=== PATIENT | female | born 1965 | race Caucasian/White ===

== ENCOUNTER 2023-08-08 18:14 | Emergency (ER) | payer BC, SELFPAY ==
[2023-08-08 18:17] VITALS: BP 148/111
--- NOTE | 2023-08-08 18:32 | ED.GENMED ---
History of Present Illness
<Jimena Flores [employer] - Last Filed: 08/08/23 21:10>
General
Chief Complaint: Cardiac Symptoms
Source: patient
Exam Limitations: none
Time Seen by Provider: 08/08/23 18:30
Nursing documentation reviewed up to this point in time: agreed with
Travel History
Have you had any contact with someone who has COVID-19?: No
Do you have any symptoms of coronavirus? Fever > 100 degrees, chills, cough, shortness of breath, sore throat, loss of taste or smell, muscle aches, or headache?: No
History of Present Illness
History of Present Illness:
57-year-old female smoker with history of HTN, HLD, alcohol abuse, history of suicide attempts presents she has had 2 weeks of intermittent nonradiating mid chest 'fluttering,' also has had cramps in both her calves and her feet for the past week.
Has had intermittent nausea and vomiting for the past 2 years, states even looking at food makes her nauseous. No significant recent weight loss
She also has rosacea that is flaring, was diagnosed by her PCP years ago and at one time was on doxycycline, she moved away 2 years ago and moved back into this area 2 weeks ago, went to urgent care due to her rosacea and they gave her a 'few'
doxycycline pills and she is requesting more until she can get into see a manager mechanical
Denies SOB, fever or chills, denies diarrhea or constipation, denies nausea at this time
Past History
<Jimena Flores, [employer] - Last Filed: 08/08/23 21:10>
Past History
ED Past Medical History: HTN and Psychiatric (Depression)
ED Past Surgical History: None
Social History
Tobacco: Smoker
Alcohol: Daily
Personal:
Living: with family
Employment: Employed
Family History
Family History: Negative Early CAD or CAD
Review of Systems
<Jimena Flores, [employer] - Last Filed: 08/08/23 21:10>
Review of Systems
Allergies reviewed?: Yes
All Other Systems: ROS reviewed and negative except as documented in HPI and ROS
Constitutional: Denies fever or chills
Respiratory: Denies cough or trouble breathing
Cardiac: Reports palpitations (Fluttering feeling intermittently mid chest)
ABD/GI: Denies abdominal pain, nausea, vomiting or diarrhea
: Denies dysuria, frequency, difficulty voiding or urgency
Musculoskeletal: Reports other (Pain in calves and feet.); Denies neck pain or back pain
Skin: Reports other
Neurological: Reports no symptoms
Phy Exam
<Jimena Flores, [employer] - Last Filed: 08/08/23 21:10>
Physical Exam
Physical Exam:
GENERAL: No acute distress. A&Ox3.
CONSTITUTIONAL: Afebrile.
EYES: clear, conjunctivae normal
ENMT: moist mucus membranes, Pharynx nl
RESPIRATORY: Regular respirations, nonlabored, lungs clear.
CARDIOVASCULAR: Regular rate and rhythm, tachycardic no murmurs, no rubs.
GI: Soft, nontender, normal BS
MUSCULOSKELETAL: Moves with ease. No edema. No calf tenderness to palpation. Well perfused.
SKIN: Warm, dry, pink, few papules on the lower face, no redness or swelling of face, no butterfly rash.
PSYCH: Normal mood and affect. Well kept, interactive and appropriate
NEUROLOGIC: Awake, alert and oriented. Strength equal throughout, sensation to touch intact, equal,both LEs. No focal neurological deficits
Course
<Jimena Flores, [employer] - Last Filed: 08/08/23 21:10>
Orders/Labs/Results
Orders:
Orders
08/08/23 18:20
ECG [Electrocardiogram (*1)] Urgent
Reason for Study: Palpitations
EKG- Treatment ONCE
08/08/23 18:47
CR Chest - 2 Views Urgent
Comment:
Reason For Exam: chest pain
08/08/23 18:48
US Periph Venous LOWER Ext Eugenio Urgent
Comment:
Reason For Exam: pain both calves and feet
08/08/23 19:01
Complete Blood Count/With Diff Urgent
Comprehensive Metabolic Panel Urgent
NT-proBNP Urgent
Troponin I Urgent
08/08/23 19:39
0.9% Sodium Chloride 1000 ml [Nss] 1,000 ml IV BOLUS
08/08/23 20:23
D-Dimer Urgent
08/08/23 21:30
CT Chest Pe Study Urgent
Comment:
Reason For Exam: hr up, ddimer up
Abnormal Lab Results
08/08/23 08/08/23
19:01 20:23
RBC 3.55 L 10^6/uL
(4.20-5.40)
Hct 35.7 L %
(37.0-47.0)
MCV 100.6 H fL
(81.0-99.0)
MCH 35.8 H pg
(27.0-31.0)
Plt Count 92 L 10^3/uL
(130-400)
MPV 10.9 H fL
(7.4-10.4)
Absolute Monos (auto) 0.8 H 10^3/uL
(0.1-0.6)
Lymphocytes % 17.9 L %
(20.5-51.1)
Monocytes % 9.5 H %
(1.7-9.3)
D-Dimer 1.92 H ug/mlFEU
(0.00-0.50)
Sodium 128 L mmol/L
(135-145)
Chloride 96 L mmol/L
(98-107)
Carbon Dioxide 21 L mmol/L
(22-30)
Creatinine 0.4 L mg/dL
(0.6-1.0)
Glucose 109 H mg/dl
(70-99)
Total Bilirubin 2.6 H mg/dl
(0.2-1.3)
AST 134 H U/L
(14-36)
ALT 39 H U/L
(0-35)
Alkaline Phosphatase 172 H U/L
(38-126)
08/08/23 19:01
08/08/23 19:01
Vital Signs
Initial and Last Documented VS:
Initial Vital Signs
Temp Pulse Resp BP Pulse Ox
98.0 F 130 20 148/111 99
08/08/23 18:17 08/08/23 18:17 08/08/23 18:17 08/08/23 18:17 08/08/23 18:17
Last Documented Vital Signs
Temp Pulse Resp BP Pulse Ox
98.0 F 92 17 149/98 99
08/08/23 18:17 08/08/23 20:50 08/08/23 20:50 08/08/23 20:50 08/08/23 20:50
Perfumer consulted with Physician
Perfumer consulted with physician?: Yes
Name of Physician Consulted: Andrew
<Sharad Morales, DO - Last Filed: 08/08/23 21:56>
Orders/Labs/Results
Orders:
Orders
08/08/23 18:20
ECG [Electrocardiogram (*1)] Urgent
Reason for Study: Palpitations
EKG- Treatment ONCE
08/08/23 18:47
CR Chest - 2 Views Urgent
Comment:
Reason For Exam: chest pain
08/08/23 18:48
US Periph Venous LOWER Ext Eugenio Urgent
Comment:
Reason For Exam: pain both calves and feet
08/08/23 19:01
Complete Blood Count/With Diff Urgent
Comprehensive Metabolic Panel Urgent
NT-proBNP Urgent
Troponin I Urgent
08/08/23 19:39
0.9% Sodium Chloride 1000 ml [Nss] 1,000 ml IV BOLUS
08/08/23 20:23
D-Dimer Urgent
08/08/23 21:30
CT Chest Pe Study Urgent
Comment:
Reason For Exam: hr up, ddimer up
Abnormal Lab Results
08/08/23 08/08/23
19:01 20:23
RBC 3.55 L 10^6/uL
(4.20-5.40)
Hct 35.7 L %
(37.0-47.0)
MCV 100.6 H fL
(81.0-99.0)
MCH 35.8 H pg
(27.0-31.0)
Plt Count 92 L 10^3/uL
(130-400)
MPV 10.9 H fL
(7.4-10.4)
Absolute Monos (auto) 0.8 H 10^3/uL
(0.1-0.6)
Lymphocytes % 17.9 L %
(20.5-51.1)
Monocytes % 9.5 H %
(1.7-9.3)
D-Dimer 1.92 H ug/mlFEU
(0.00-0.50)
Sodium 128 L mmol/L
(135-145)
Chloride 96 L mmol/L
(98-107)
Carbon Dioxide 21 L mmol/L
(22-30)
Creatinine 0.4 L mg/dL
(0.6-1.0)
Glucose 109 H mg/dl
(70-99)
Total Bilirubin 2.6 H mg/dl
(0.2-1.3)
AST 134 H U/L
(14-36)
ALT 39 H U/L
(0-35)
Alkaline Phosphatase 172 H U/L
(38-126)
08/08/23 19:01
08/08/23 19:01
Vital Signs
Initial and Last Documented VS:
Initial Vital Signs
Temp Pulse Resp BP Pulse Ox
98.0 F 130 20 148/111 99
08/08/23 18:17 08/08/23 18:17 08/08/23 18:17 08/08/23 18:17 08/08/23 18:17
Last Documented Vital Signs
Temp Pulse Resp BP Pulse Ox
98.0 F 92 17 149/98 99
08/08/23 18:17 08/08/23 20:50 08/08/23 20:50 08/08/23 20:50 08/08/23 20:50
<Jimena Flores [employer] - Last Filed: 08/08/23 21:10>
MDM/Problems Addressed
Differential Diagnosis Includes:
DVT, PE, dehydration, dysrhythmia
Rosacea, acne, lupus, seborrheic dermatitis
MDM/Problems Addressed:
57-year-old female smoker with history of HTN, HLD, alcohol abuse, history of suicide attempts presents she has had 2 weeks of intermittent nonradiating mid chest 'fluttering,' also has had cramps in both her calves and her feet for the past week.
Has had intermittent nausea and vomiting for the past 2 years, states even looking at food makes her nauseous. No significant recent weight loss
She also has rosacea that is flaring, was diagnosed by her PCP years ago and at one time was on doxycycline, she moved away 2 years ago and moved back into this area 2 weeks ago, went to urgent care due to her rosacea and they gave her a 'few'
doxycycline pills and she is requesting more until she can get into see a manager mechanical
Denies SOB, fever or chills, denies diarrhea or constipation, denies nausea at this time
Afebrile, NAD
EKG: Sinus tachycardia
No butterfly rash of lupus.
7:37 PM
CBC: Mild thrombocytopenia with platelets at 92 which is new for her
CMP: Hyponatremia with a sodium of 128 which is new, elevation of liver enzymes bilirubin 2.6 (hx alcohol misuse) Denies alcohol use 'for a while' days. drinks white wine
Chest x-ray: Radiology report read: NAD
Troponin normal
proBNP 586 WNL
8:12 PM
Ultrasound radiology report read: No DVT
Patient is referred to GI for her chronic intermittent nausea and vomiting. Prescription for Omeprazole sent to her pharmacy
Patient is referred to dermatology for her rosacea. Rx for Doxycycline sent to her pharmacy
Patient is referred back to her family practitioner in 7 to 10 days to have her blood work, specifically sodium, platelets, bilirubin and liver function rechecked, recheck HR and BP
8:51 PM
Patient heart rate 90 on the monitor, she is laying quietly in bed watching TV. Blood pressure rechecked 148/98
D dimer pending, if neg, discharge
Dr. Morales will get result and OK pt to be discharged
Chronic conditions affecting care: HTN
<Jimena Flores [employer] - Last Filed: 08/08/23 21:10>
*EKG
EKG Intrepretation Date: 08/08/23
Interpretation: abnormal
Comparison EKG: no changes
Rate: tachycardiac
Rhythm: sinus
[place]: normal axis
Interval: normal interval
QRS Pattern: normal QRS
Ischemia: no ischemia
<Sharad Morales DO - Last Filed: 08/08/23 21:56>
*Critical Care Note
Total Time (30-74mins, 75-104mins- exclusive of procedures): Not Applicable
ED Attending Note
<Jimena V. Day, [employer] - Last Filed: 08/08/23 21:10>
-
Portions of this chart may have been created with voice recognition software.� Occasional wrong word or��sound alike� substitutions may have occurred due to the inherent limitations of voice recognition software.
<Sharad Morales DO - Last Filed: 08/08/23 21:56>
ED Attending Note
Patient seen and examined by attending physician: Yes
I performed the substantive portion of visit, reviewed & personally made and approve the management plan that is documented in note by myself or ITZ.: Yes
ED Attending Note:
Seen with [facility] [employer] examined independently tachycardia palpitations decreased p.o. intake, heart rates as high as 130s, seems to be improved after IV fluids, negative lower extremity Doppler negative chest x-ray positive D-dimer we will proceed with CTA of
the chest to rule out PE
Discharge Plan
Departure
Patient Disposition: Home (Routine Discharge)
Date of Disposition: 08/08/23
Time of Disposition: 21:55
Patient with high blood pressure during this ER visit?: No
Condition: Good
Discharge Problem:
Nonspecific elevation of levels of transaminase and lactic acid dehydrogenase [ldh], Atypical chest pain, Rosacea, Bilateral leg and foot pain
Instructions: Rosacea, Chest Pain That Is Not Caused by the Heart (DC), Acid Reflux and GERD in Adults (DC)
Prescriptions:
New
doxycycline hyclate 100 mg capsule
100 mg PO BID Qty: 60 0RF
omeprazole 40 mg capsule,delayed release(DR/EC)
40 mg PO DAILY Qty: 30 0RF
No Action
metoprolol succinate 50 MG tablet extended release 24 hr
50 mg PO DAILY
escitalopram oxalate 10 MG tablet
10 mg PO DAILY
thiamine HCl (vitamin B1) 100 MG tablet
100 mg PO BID 0RF
amlodipine 5 MG tablet
5 mg PO DAILY 0RF
folic acid 1 MG tablet
1 mg PO DAILY 0RF
Referrals:
Heron Gonzalez MD [Active] - Next open appointment
NONE,* [Family Provider] -
Silvia Nair MD [Consulting Staff] - Next open appointment
Nichol Stokes CRNP [Specified Professional Personl] - Call in 1-3 days for appt
Activity Restrictions/Additional Instructions:
As we discussed, stop using the steroid ointment on your face
I sent a prescription to your pharmacy for Doxycycline. Call the Wire Stripping Machine Operator tomorrow for next available appointment
Call [facility] [employer] Divya office tomorrow and make appointment for 7-10 days for recheck of blood work, BP and heart rate.
I sent a prescription to your for Omeprazole over the counter and take 20 mg daily to see if it helps your GI symptoms.
Call the GI doctor's office and make next available appointment for your chronic nausea and vomiting
Your Ultrasound shows no blood clots.
I am not sure of the cause of your leg and foot pains. Please discuss this with your doctor.
Start exercising by taking daily walks to get the blood flowing to your legs, this may help the pain in the legs.
Interventions
Interventions:
*Risk Screen - Suicide Last Done: 08/08/23 19:02
*General Assessment Last Done: 08/08/23 19:02
*Neglect/Abuse Screening Last Done: 08/08/23 19:02
ED- Fall Risk Assessment Last Done: 08/08/23 19:09
*ED COVID-19 Vaccine History Last Done: 08/08/23 19:02
ED- Cardiac Assessment Last Done: 08/08/23 19:09
ED- Pulmonary Assessment Last Done: 08/08/23 19:09
Discharge Date and Time
Print Language: GREENLANDIC
[2023-08-08 18:56] VITALS: BP 143/107
[2023-08-08 19:03] VITALS: BMI 29.5
[2023-08-08 19:10] LABS: % Basophils 0.8 % (0-2); % Eosinophils 2.7 % (0-6); % Immature Granulocytes 0.4 % (0-0.5); % Lymphocytes 17.9 % (20.5-51.1); % Monocytes 9.5 % (1.7-9.3); % Neutrophils 68.7 % (42.2-75.2); Absolute Basophils 0.1 10^3/uL (0-0.2); Absolute Eosinophils 0.2 10^3/uL (0-0.7); Absolute Lymphocytes 1.5 10^3/uL (1.2-3.4); Absolute Monocytes 0.8 10^3/uL (0.1-0.6); Absolute Neutrophils 5.8 10^3/uL (1.4-6.5); Hematocrit 35.7 % (37.0-47.0); Hemoglobin 12.7 g/dL (12.0-16.0); Mean Corp Hgb Conc. 35.6 g/dL (33.0-37.0); Mean Corpuscular Hgb 35.8 pg (27.0-31.0); Mean Corpuscular Volume 100.6 fL (81.0-99.0); Nucleated Red Blood Cells % 0 %; Red Blood Cell Count 3.55 10^6/uL (4.20-5.40); Red Cell Dist. Width 11.9 % (11.5-14.5); White Blood Cell Count 8.4 10^3/uL (4.8-10.8)
[2023-08-08 19:23] LABS: Mean Platelet Volume 10.9 fL (7.4-10.4); Platelet Count 92 10^3/uL (130-400)
[2023-08-08 19:27] LABS: ALT (SGPT) 39 U/L (0-35); AST (SGOT) 134 U/L (14-36); Albumin 3.6 g/dl (3.5-5.0); Alkaline Phosphatase 172 U/L (38-126); Blood Urea Nitrogen 8 mg/dl (7-17); Calcium 8.6 mg/dl (8.4-10.2); Carbon Dioxide 21 mmol/L (22-30); Chloride 96 mmol/L (98-107); Estimated Creatinine Clearance 103 ml/min; Glucose 109 mg/dl (70-99); Potassium 3.7 mmol/L (3.5-5.1); Sodium 128 mmol/L (135-145); Total Bilirubin 2.6 mg/dl (0.2-1.3); Total Protein 7.4 g/dl (6.3-8.2); eGFR > 60.00
[2023-08-08 19:36] LABS: NT-proBNP 586 pg/ml; Troponin I < 0.012 ng/ml
[2023-08-08 20:19] VITALS: BP 146/101
[2023-08-08] MEDS: NSS 1000 IV (20:22)
[2023-08-08 20:50] VITALS: BP 149/98
[2023-08-08 21:00] VITALS: BP 151/102
[2023-08-08 21:25] LABS: D-Dimer 1.92 ug/mlFEU (0.00-0.50)
[2023-08-08 22:00] VITALS: BP 149/101
== END 2023-08-08 22:52 | disposition home or self-care (01) ==
LOC: EMR 18:14
PROVIDERS: Registered Nurse; EMERGENCY PHYSICIAN Emergency Medicine
DX: R74.02 Elevation of levels of lactic acid dehydrogenase [LDH] (principal); R74.01 Elevation of levels of liver transaminase levels; R07.89 Other chest pain; L71.9 Rosacea, unspecified; M79.605 Pain in left leg; M79.604 Pain in right leg; M79.672 Pain in left foot; M79.671 Pain in right foot; I10 Essential (primary) hypertension; E78.5 Hyperlipidemia, unspecified; F17.200 Nicotine dependence, unspecified, uncomplicated
CPT/HCPCS: 99285; 96360; 71046; 71275; 80053; 83880; 84484; 85025; 85379; 93005; 93970; Q9967

== ENCOUNTER → 2024-02-01 12:48 | Outpatient (REF) | payer BC, SELFPAY | LOC: HWRAD 12:48 | PROVIDERS: ATTENDING PHYSICIAN Nurse Practitioner Adult Health | DX: R93.5 Abnormal findings on diagnostic imaging of other abdominal regions, including retroperitoneum (principal); I82.890 Acute embolism and thrombosis of other specified veins; R11.0 Nausea | CPT/HCPCS: 74177; Q9967 ==

== ENCOUNTER 2024-02-06 17:41 | Inpatient (IN) | payer BC, SELFPAY ==
[2024-02-06] VITALS (11 sets, daily range): BP systolic 91–131; BP diastolic 60–90; BMI 31.2; BMI 30.3
[2024-02-06] MEDS: NSS 1000 IV ×2 (10:20→21:16)
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
[2024-02-06 11:07] LABS: % Basophils 0.4 % (0-2); % Immature Granulocytes 0.6 % (0-0.5); % Lymphocytes 11.1 % (20.5-51.1); % Monocytes 12.1 % (1.7-9.3); % Neutrophils 74.8 % (42.2-75.2); Absolute Eosinophils 0.1 10^3/uL (0-0.7); Absolute Immature Granulocytes 0.1 10^3/uL (0-0.05); Absolute Lymphocytes 1.1 10^3/uL (1.2-3.4); Absolute Monocytes 1.2 10^3/uL (0.1-0.6); Absolute Neutrophils 7.1 10^3/uL (1.4-6.5); Hematocrit 28.2 % (37.0-47.0); Mean Corp Hgb Conc. 35.5 g/dL (33.0-37.0); Mean Corpuscular Hgb 35.5 pg (27.0-31.0); Mean Platelet Volume 12.6 fL (7.4-10.4); Nucleated Red Blood Cells % 0.2 %; Platelet Count 77 10^3/uL (130-400); Red Blood Cell Count 2.82 10^6/uL (4.20-5.40); Red Cell Dist. Width 13.9 % (11.5-14.5); White Blood Cell Count 9.5 10^3/uL (4.8-10.8)
[2024-02-06 11:10] LABS: ALT (SGPT) 138 U/L (0-35); AST (SGOT) 505 U/L (14-36); Acetaminophen < 10 ug/ml (10-30); Albumin 3.6 g/dl (3.5-5.0); Alcohol None Detected; Alkaline Phosphatase 163 U/L (38-126); Blood Urea Nitrogen 23 mg/dl (7-17); Calcium 8.9 mg/dl (8.4-10.2); Carbon Dioxide 22 mmol/L (22-30); Chloride 91 mmol/L (98-107); Glucose 106 mg/dl (70-99); Salicylate < 1.0 mg/dl (2.0-20.0); Sodium 134 mmol/L (135-145); Total Bilirubin 6.1 mg/dl (0.2-1.3); Total Protein 6.8 g/dl (6.3-8.2); eGFR 28.25
[2024-02-06 13:55] LABS: Urine Albumin Negative (Neg - Trace); Urine Bilirubin 1+ (Negative); Urine Character Cloudy (Clear); Urine Color Amber; Urine Glucose Negative (Negative); Urine Ketone Trace (Negative); Urine Leukocyte 2+ (Negative); Urine Nitrite Negative (Negative); Urine Occult Blood Trace (Negative); Urine Urobilinogen 3+ (Neg - 1+)
[2024-02-06 14:10] LABS: Amphetamines Positive (Negative); Marijuana Positive (Negative)
[2024-02-06 14:11] LABS: Barbiturates Negative (Negative); Benzodiazepines Negative (Negative); Buprenorphine Negative (Negative); Cocaine Negative (Negative); Methadone Negative (Negative); Methamphetamines Negative (Negative); Opiates Negative (Negative); Phencyclidine Negative (Negative); Tricyclic Antidepressants Negative (Negative)
[2024-02-06 14:14] LABS: Urine Amorphous Seen; Urine Bacteria Many (Negative); Urine Red Blood Cell 0-2 /HPF (0-2); Urine Squamous Cell >30 /LPF (Few); Urine White Cell 40-50 /HPF (0-5)
[2024-02-06 14:25] LABS: Fentanyl, Urine Negative (Negative)
[2024-02-06 15:19] LABS: Ammonia < 9 umol/L (9-30)
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
[2024-02-06 18:30] LABS: TSH 6.26 uIU/ml (0.47-4.68)
[2024-02-06 19:05] LABS: Folate 6.7 ng/ml (2.76-20); Vitamin B12 > 1000 pg/ml (239-931)
[2024-02-06] MEDS: THIAMINE INJECTION 255 MG IV ×2 (19:14→23:55)
[2024-02-06 21:28] LABS: INR 1.71; PT 19.9 Sec (11.4-14.6)
[2024-02-06 21:29] LABS: APTT 30.8 Sec (23.4-35.0)
[2024-02-06 21:42] LABS: B-Hydroxybutyrate 1.25 mmol/L (0.02-0.27); GGTP 269 U/L (12-43)
--- NOTE | 2024-02-06 22:58 | PTCARENOTE ---
Pt. arrived to unit from ED via stretcher. Patient able to safely ambulate into room 331 on . Patient AAOx3, forgetful, confused to some details. No c/o pain. Tele placed per orders. Oriented to unit. Call hinson within reach. Plan of care
ongoing.
[2024-02-07 03:15] VITALS: BP 123/86
--- NOTE | 2024-02-07 03:17 | PTCARENOTE ---
Patient with different hallucinations throughout shift. Patient found sitting on side of the bed at around 2300. This RN asked patient if she needed anything to which patient replied 'be quiet, the man behind the curtain is going to propose to her
soon,' pointing to the recliner chair. Patient able to answer all orientation questions appropriately. Pt. then c/o bugs crawling up the straws and into her drink. This RN opened cup where no bugs were observed. Tried to reorient to reality. New
drinks provided. Patient later stated that there was loyola all over her linens. While attempting to reorient patient, patient stated 'you're really starting to piss me off.' Again, no loyola visualized. New linens provided to patient. Encouraged
patient to try to rest. MSAS remains a 2. Plan of care ongoing.
--- NOTE | 2024-02-07 05:19 | PTCARENOTE ---
Pt. yelling for 'Sonam' to 'stop calling her.' This nurse entered the room and attempted to orient to reality. Patient stated that Sonam was 'behind the door' and is 'playing tricks on us.' Asked patient to not yell any further. Patient replied
'thanks Sonam, you got me in trouble.' Patient continues to believe that Sonam is 'writing on the morris' and hiding behind the door. Unable to reorient. Patient able to tell this RN that she is at the hospital. Plan of care ongoing. Call hinson
within reach.
[2024-02-07 06:32] LABS: ALT (SGPT) 183 U/L (0-35); AST (SGOT) 618 U/L (14-36); Albumin 2.8 g/dl (3.5-5.0); Alkaline Phosphatase 125 U/L (38-126); Blood Urea Nitrogen 17 mg/dl (7-17); Calcium 7.8 mg/dl (8.4-10.2); Carbon Dioxide 23 mmol/L (22-30); Chloride 97 mmol/L (98-107); Estimated Creatinine Clearance 56 ml/min; Glucose 86 mg/dl (70-99); Potassium 3.4 mmol/L (3.5-5.1); Sodium 134 mmol/L (135-145); Total Bilirubin 4.9 mg/dl (0.2-1.3); Total Protein 5.8 g/dl (6.3-8.2); eGFR 57.88
[2024-02-07] MEDS: NSS 1000 IV (07:09)
[2024-02-07 07:40] VITALS: BP 127/85
--- NOTE | 2024-02-07 08:08 | CON.GI ---
Addendum entered and electronically signed by Bella Gupta DO 02/07/24 14:33:
Patient seen and examined independently of JEROMY. I agree with her note with my additions below
Patient is a 58-year-old female with history of alcohol use, psoriatic arthritis who presents emergency room with hallucinations. She had called due to concern for liver disease and questionable hepatic encephalopathy. In the emergency room
patient has a hepatocellular/mixed with elevated bilirubin of 4.9. Alkaline phosphatase 125. Imaging shows no ductal dilatation however a questionable proximal main portal vein thrombosis was found. Labs concerning for cirrhosis with
thrombocytopenia, elevated INR of 1.7.
On physical exam she has some stigmata of liver disease including palmar erythema and a few angiectasias on her chest
# Hallucinations -based on patient's behavior, this is not classic hepatic encephalopathy. She is coherent not lethargic and is having hallucinations alone
-Her ammonia level is normal-she has no asterixis on exam
-She does have a UTI and is currently being treated
-If there is a component of hepatic encephalopathy this could be driven by both infection with UTI and also a new portal vein thrombosis
-- Ensure potassium is within normal range as this can also drive hepatic encephalopathy
-- Avoid constipation
# Alcoholic liver disease -alcohol cessation
-- Likely cirrhosis and will need outpatient follow-up
# Mixed hepatocellular/hyperbilirubinemia -no ductal dilatation on imaging, likely alcoholic hepatitis however despite her DF being greater than 32 in the setting of infection she is not a candidate for steroids
-- Trend LFTs
# Portal vein thrombosis -higher risk in the setting of cirrhosis causing stagnation of portal flow and increasing risk of portal clot
-- She has no significant ascites on imaging
-- Currently on Lovenox
-- Reviewed hematology note stating when her renal function improves she will need IV contrast
Original Note:
Consultation
-
Date/Time Consultation Requested: 02/06/24 @ 19:45
Date/Time Consultation Performed: 02/07/24 @ 08:45
Requesting Provider: Dr. Dahlia Solo
Performing Provider: JEROMY Francisco; Dr. Bella Gupta
Reason for Consultation: alcohol hepatitis, alcohol withdrawal, hepatic encephalopathy vs wernicke's
Medical History
Chief Complaint / HPI
Chief Complaint: altered mental status
History of Present Illness:
The patient is a 58-year-old female with a past medical history significant for hypertension, hyperlipidemia, psoriatic arthritis, alcohol use disorder, who presented to the emergency room with hallucinations and altered mentation. We are being
asked to evaluate for possible hepatic encephalopathy. Upon review of admitting records, the patient had reportedly been having hallucinations at home calling the police on multiple occasions for various reasons including attempted burglary's which
were not evident. She also had reported sleeping with cats in her home that were not present. She reportedly has had decreased oral intake over the past week per her family although she lives alone. She does have a history of alcohol use
disorder, and does drink excessive amounts of wine. I spoke to her son Logan on the phone who reports that she has been declining from a mental standpoint as of recently. He reports that she is unable to put things together and often is making
up stories. They are concerned that she has underlying dementia. He also reports that she has a history of alcohol abuse and had been in inpatient rehab in the past. He does not feel that she has been drinking as much recently but he is unsure as
she lives alone. She was initially brought in for mental status evaluation but then found to have increased LFTs and other findings as noted below. The patient is a limited historian and trying to leave the room during the interview, but reports
that she does continue with alcohol use about 2 times weekly which she has been doing for many years. She reports she will drink 4 glasses of wine in a sitting but has not drank in the last 2 weeks. She has no complaints other than eating less but
she has been doing intentionally. She denies any unintentional weight loss, loss of appetite, change of bowel habits, melena, hematochezia, hematemesis, nausea, vomiting, abdominal pain, fevers, chills, chest pain, or shortness of breath. She
denies any prior history of liver disease or cirrhosis. She reports that she does take Advil about 4 times weekly to help her sleep. She does not use Tylenol regularly. She does not recall her prior surgical history but does note she has rosacea,
GERD, and hypertension which she takes medications for. She otherwise is unable to offer much more history. She does answer orientation questions correctly. She reports she needs to leave the hospital to take her dad somewhere. She reports prior
colonoscopy about 3 to 4 years ago with no polyps. She denies any prior EGD. She denies any use of blood thinners. She denies any prior history of blood clots. Upon review of outpatient records, she did have an abdominal ultrasound in October at
[facility] which did show perisplenic varices with possible thrombus of the splenic vein along with fatty liver. At that time the main portal vein did appear patent although limited imaging.
Upon evaluation in the ER, routine labs showed a sodium 134, potassium 4.0, total bilirubin 6.1, AST 505, ALT 138, alk phos 163, ammonia less than 9, folate 6.7, vitamin B12 greater than 1000, albumin 3.6, TSH 6.26, creatinine 2.0, BUN 23, WBC 9.5,
hemoglobin 10.0, MCV 100, platelets 77,000. Urinalysis showing 40-50 WBCs, possible UTI with urine culture pending. Blood culture sent and are pending. Urine drug screen showing amphetamines and marijuana. CT imaging of the brain showed no acute
intracranial abnormalities with moderate atrophy. CT of the abdomen and pelvis showed severe hepatic fatty infiltration and elongated gallbladder. An ultrasound of the abdomen was obtained which showed a large amount of gallbladder sludge,
distention of the gallbladder, fatty liver, and a proximal main portal vein thrombosis, with findings consistent with likely portal hypertension. She was placed on a clear liquid diet with infection workup pending, and admitted for further
evaluation by GI.
Past Medical History
Past Medical History: GERD, HTN, Hypercholesterolemia and Other (Psoriatic arthritis, alcohol use disorder, chronic lower extremity edema)
Past Surgical History: Other (Patient could not report surgical history)
Social History
Tobacco: Non-Smoker
Alcohol: Chronic Alcoholic
Drug: Marijuana
Living: Alone
Family History
Family History: Reviewed & Not Pertinent
Allergies / Home Medications
Allergy/AdvReac Type Severity Reaction Status Date / Time
No Known Allergies Allergy Unverified 02/06/24 12:36
�Medication �Instructions �Recorded
metoprolol succinate 50 mg 100 mg PO DAILY 02/13/19
tablet,extended release 24 hr
omeprazole 40 mg capsule,delayed 40 mg PO DAILY #30 caps 08/08/23
release
doxycycline hyclate 100 mg capsule 100 mg PO BIDPRN PRN as needed 02/06/24
tizanidine 2 mg tablet 2 mg PO HS 02/06/24
Review of Systems
-
Unable to obtain full review of systems at this time due to: Other (altered mentation)
History Source: Patient and Family
Constitutional: Reports No Symptoms
EENT: Reports No Symptoms
Respiratory: Reports No Symptoms
Cardiac: Reports No Symptoms
Abdomen/GI: Reports No Symptoms
: Reports No Symptoms
Musculoskeletal: Reports No Symptoms
Skin: Reports No Symptoms
Neurological: Reports Other (hallucinations, delusions)
Vital Signs
Temp Pulse Resp BP Pulse Ox
98.4 F 93 16 127/85 97
02/07/24 07:40 02/07/24 07:40 02/07/24 07:40 02/07/24 07:40 02/07/24 07:40
Physical Exam
Exam
General: No Apparent Distress, Comfortable and Other (appears older than stated age)
HEENT: Normocephalic, Atraumatic and Other (+b/L scleral icterus)
Respiratory: Clear
Cardiac: S1/S2 and Regular Rhythm
Breast: Deferred by me
GI: Soft, Non Tender, Non Distended and Normal Bowel Sounds
Rectal: Deferred by Provider
Musculoskeletal: Edema (+1 LE edema bilaterally)
Skin: Warm and Dry
Neuro: Awake, Alert and Oriented (to self, place, and year)
Psych: Agitated and Other (pacing )
Results
WBC 9.5 10^3/uL (4.8-10.8) 02/06/24 10:24
Hgb 10.0 g/dL (12.0-16.0) L 02/06/24 10:24
Hct 28.2 % (37.0-47.0) L 02/06/24 10:24
MCV 100.0 fL (81.0-99.0) H 02/06/24 10:24
Plt Count 77 10^3/uL (130-400) L 02/06/24 10:24
Absolute Neuts (auto) 7.1 10^3/uL (1.4-6.5) H 02/06/24 10:24
PT 19.9 Sec (11.4-14.6) H 02/06/24 21:08
INR 1.71 02/06/24 21:08
APTT 30.8 Sec (23.4-35.0) 02/06/24 21:08
Sodium 134 mmol/L (135-145) L 02/07/24 05:40
Potassium 3.4 mmol/L (3.5-5.1) L 02/07/24 05:40
Chloride 97 mmol/L (98-107) L 02/07/24 05:40
Carbon Dioxide 23 mmol/L (22-30) 02/07/24 05:40
BUN 17 mg/dl (7-17) 02/07/24 05:40
Creatinine 1.1 mg/dL (0.6-1.0) H 02/07/24 05:40
Calcium 7.8 mg/dl (8.4-10.2) L 02/07/24 05:40
Total Bilirubin 4.9 mg/dl (0.2-1.3) H 02/07/24 05:40
AST 618 U/L (14-36) H* 02/07/24 05:40
ALT 183 U/L (0-35) H 02/07/24 05:40
Alkaline Phosphatase 125 U/L (38-126) 02/07/24 05:40
Diagnostic Image Results:
02/06/24 CT A/P w/o contrast: IMPRESSION: No acute pathology of the abdomen or pelvis identified. Severe hepatic fatty infiltration. Stable. Elongated gallbladder probably due to benign gallbladder hydrops. New. If concern for acute cholecystitis.
Abdominal ultrasound recommended.
02/06/24 US abdomen: IMPRESSION: Hepatic fatty infiltration. Large amount of gallbladder sludge. Distended gallbladder. No additional secondary findings to suggest acute cholecystitis. Clinical and laboratory correlation recommended. Proximal main
portal vein thrombosis. Associated hepatofugal flow in the distal main pulmonary vein. This can be seen with portal hypertension
CT Head: IMPRESSION: No acute intracranial abnormality noted. Moderate atrophy. New
02/01/24 CT A/P W/IV and oral: IMPRESSION:
1. No acute findings within the abdomen or pelvis.
2. Severe hepatic steatosis.
3. Subtle increased attenuation within the dependent portions of the gallbladder suggesting the presence of stones and/or sludge. No inflammatory changes.
4. Prominent diverticulum arising from the gastric fundus measuring 6.4 cm.
Prior GI Procedures:
EGD: none
Colonoscopy: 3-4 years ago per pt, no polyps (report not available to me)
Assessment / Plan
-
The patient is a 58-year-old female with a past medical history significant for hypertension, hyperlipidemia, psoriatic arthritis, alcohol use disorder, who presented to the emergency room with hallucinations and altered mentation, with ongoing
symptoms found to have increased LFTs, thrombocytopenia, and findings on ultrasound consistent with fatty liver disease and possible cirrhosis with portal hypertension and portal vein thrombosis. We are being asked to evaluate for possible hepatic
encephalopathy. Per family she has been having difficulty putting information together, making up stories, and having hallucinations/delusions at home more recently. She does have a history of alcohol use disorder and had been in rehab in the
past, and continues to drink intermittently per patient about 2 times weekly, last 2 weeks ago per pt. Labs showing platelets 77,000, INR 1.71, total bilirubin 6.1, AST 505, ALT 138, alk phos 163. DF 37.8. Ammonia level less than 9. UA showing
increased WBCs consistent with possible UTI. CT of the head showing moderate atrophy otherwise no acute findings.
Problem list:
-altered mental status, hallucinations
-alcoholic hepatitis v chronic liver disease/cirrhosis
-abnormal LFT's
-US/CT showing gallbladder distention, sludge, PVT, fatty liver
-alcohol use disorder
-mild hyponatremia
-thrombocytopenia
-CHIOMA
-abnormal UA
Other pertinent medcal hx:
-HTN
-HLD
-psoriatic arthritis
-chronic GERD
-gastric fundus diverticulum on CT 02/01/24
Recommendations:
-Etiology of current symptoms possibly multifactorial given underlying liver disease versus acute psychosis versus dementia versus infection with abnormal UA versus other.
---I do not feel her current mental state is secondary to liver disease given she is not obtunded or overly lethargic. She is having hallucinations and delusions which may be underlying psych component Per family this has been progressively
worsening.
-At this time would recommend psychiatry evaluation for underlying dementia versus other psychiatric disorder. TT sent to the hospitalist Dr. Choi
-Will continue to trend her LFTs and monitor her discriminant function, elevated at 37.8 on admission but with concern for UTI would hold off on steroids and follow her trends. Her total bilirubin has down trended today, awaiting PT/INR this am
-Recommend hematology evaluation given the presence of portal vein thrombosis on ultrasound
-Monitor platelets, CBC pending this AM
-Avoid hepatotoxins
-She will need further liver workup and evaluation for cirrhosis outpatient with FibroScan versus MR elastography along with underlying chronic liver disease workup
-Advised on alcohol abstinence
-Infectious work-up/treatment as per hospitalist
-If OP w/u consistent with cirrhosis will need eventual EGD for varices screening, can evaluate gastric diverticulum findings as well.
-Further management pending above
Data Reviewed
-
CT Scan: Report Reviewed by me and Discussed with Physician
Ultrasound: Report Reviewed by me and Discussed with Physician
-
-
Thank you for consultation and allowing me to participate in the patient's care. Please call the communication equipment repairer GI physician during the after hours with any questions or concerns.
--- NOTE | 2024-02-07 08:40 | W.PN.HOSP.TC ---
Today's Communication/Plan
-
Continue therapeutic Lovenox
Monitor CBC
Appreciate GI, psych and hematology
Assessment / Plan
Assessment / Plan
Physical Exam
General: No Apparent Distress, Comfortable and Conversant
HEENT: Normocephalic, Moist mucous membranes
Respiratory: Clear
Cardiac: S1/S2 and Regular Rhythm
GI: Soft, Non Tender, Non Distended and Normal Bowel Sounds
Musculoskeletal: No Cyanosis, No Edema
Skin: Warm and Dry
Neuro: AAO x 3, No Motor Deficits, Nonfocal/grossly intact and Other (no tremor)
Psych: Calm

Assessment/Plan
IMPRESSION:The patient is a 58 year old female with PMH significant for alcohol use, HTN, psoriatic arthritis (not on meds), and HLD presents to the ED due to hallucinations and altered mental status. She arrives with her family, and was noted to
have 'called the police on 3 separate occasions for concern of robberies in her house. When police and family arrived to the house, no evidence of any type of robberies. Patient was also reporting that she was sleeping with 5 cats, has no cats at
home ' per ED provider note. No known psych history. She has had decreased oral intake over the past week per family. She lives alone. She said her last etOH drink was wine , 4 glasses, on Wednesday, and had drinks about a week prior to that. Her
sons mention that she has a history of not telling the truth about how much she is drinking. She also said she had an Adderall in the past week, that she takes them prn, and also marijuana occasionally. She denies any other drugs. She says her
vision has changed and she feels more far-sighted recently, that has improved with using reader glasses. She also has had increased ataxia over the past few weeks-1 month, and peripheral neuropathy with burning and pain b/l feet causing her to have
difficulty walking up the stairs.
Ammonia level less than 9. CT and US with evidence for severe fatty liver, and LFTs including total bilirubin are elevated. US shows portal vein thrombosis and stigmata of portal HTN.
ED txt:
NS IVF bolus 1 liter
#AMS, with hallucinations -- less likely to be hepatic encephalopathy, could be from UTI
-IVF, monitor, avoid nephrotoxic agents, consider Nephro cx pending repeat labs, repeat labs in am
-GI consult appreciated- rec to hold on MRCP at this time
-Alcohol withdrawal protocol
-Continue high dose IV Thiamine, and continue every 8 hours for 9 doses then re-evaluate
-Folic acid daily
-check folate level (6.7), B-12 (greater than 1000), TSH (elevated at 6.26), check RPR
-parham culture due to infection can precipitate HE- blood culture; urine culture (urine culture growing E. coli)
-Consulted psychiatry; appreciate their evaluation and recommendations
-Risperidone PRN for agitation
#CHIOMA, Creat 2.0 (baseline 0.4-0.6)
-IVF, repeat labs , as per above
#Possible splenic vein thrombosis in recent outpatient ultrasound
#Peripheral neuropathy
-B12 level is high
#UA positive for Amphetamines and THC, UA abnormal 2+ LE, 40-50 WBC, many bacteria, with suprapubic tenderness
-she takes Adderall prn, uses marijuana occasionally
-UA culture showing E. coli, start Rocephin given suprapubic tenderness with positive urine culture
#GB sludge, distended, no evidence for obstruction, no abdominal pain
-no evidence for stones, no imaging per GI as of yet, and continue to monitor
#Portal Vein thrombosis proximal main portal vein
-US - Proximal main portal vein thrombosis. Associated hepatofugal flow in the distal main pulmonary vein. This can be seen with portal hypertension
-Lovenox 1 mg/kg Q12H for now
#Transaminitis- AST 505, ALT 138, AP 163, TB 6.1
-US abdomen hepatic fatty infiltration, severe on CT scan
# Alcoholic liver disease -alcohol cessation
- Likely cirrhosis and will need outpatient follow-up
#Thrombocytopenia Plt 77 (92 in August 2023 but normal prior to then in 2018)
#Anemia Hgb 10.0 (12.7 in August 2023) with MCV 100
-B12, folate levels as above
#Hyponatremia 134
DVT proph-Therapeutic Lovenox as above
Full Code
On 02/07/24, I spoke to patient's son Logan, who would agree to any need for 302 or restraint if needed. I answered all of Logan's questions and concerns to satisfaction.
Anticipated Discharge: > 48 hours
Subjective/Interval History
-
Date of Service: February 07, 2024
Patient was seen and examined. She denied any new significant symptoms or complaints, except that she wanted to leave.
Objective Data
-
Labs:
Laboratory Results
02/06/24 02/07/24
21:08 05:40
PT 19.9 H
INR 1.71
APTT 30.8
Sodium 134 L
Potassium 3.4 L
Chloride 97 L
Carbon Dioxide 23
BUN 17
Creatinine 1.1 H
Glucose 86
Calcium 7.8 L
Total Bilirubin 4.9 H
AST 618 H*
ALT 183 H
Alkaline Phosphatase 125
Vital Signs:
Vital Signs
Temp Pulse Resp BP Pulse Ox
98.4 F 93 16 127/85 97
02/07/24 07:40 02/07/24 07:40 02/07/24 07:40 02/07/24 07:40 02/07/24 07:40
I&O
02/06/24 02/07/24 02/08/24
06:59 06:59 06:59
Intake Total 2550 / 2550
Balance 2550 / 2550
[2024-02-07] MEDS: FOLVITE 1 MG PO (08:46)
[2024-02-07] MEDS: TOPROL XL 100 MG PO (08:46)
[2024-02-07] MEDS: PROTONIX 40 MG PO (08:46)
[2024-02-07] MEDS: ATIVAN 1 MG PO (08:51)
[2024-02-07] MEDS: KCL 40 MEQ PO (08:51)
[2024-02-07] MEDS: THIAMINE INJECTION 255 MG IV ×3 (08:54→23:58)
[2024-02-07 10:51] LABS: INR 1.93; PT 21.9 Sec (11.4-14.6)
[2024-02-07 10:55] LABS: Hematocrit 27.5 % (37.0-47.0); Mean Corp Hgb Conc. 36.4 g/dL (33.0-37.0); Mean Corpuscular Hgb 36.9 pg (27.0-31.0); Mean Corpuscular Volume 101.5 fL (81.0-99.0); Mean Platelet Volume 12.2 fL (7.4-10.4); Platelet Count 89 10^3/uL (130-400); Red Blood Cell Count 2.71 10^6/uL (4.20-5.40); Red Cell Dist. Width 14.5 % (11.5-14.5); White Blood Cell Count 8.6 10^3/uL (4.8-10.8)
[2024-02-07] MEDS: STERILE WATER FOR INJECTION 10 ML IV (11:05)
[2024-02-07] MEDS: ROCEPHIN 1000 MG IV (11:05)
[2024-02-07] MEDS: LOVENOX 80 MG SC ×2 (11:08→23:10)
[2024-02-07 11:36] LABS: Direct Bilirubin 3.1 mg/dl (0.0-0.4)
--- NOTE | 2024-02-07 12:03 | CS.PSYCHR ---
Consult Summary - Psychiatry
-
Pt is 58 yo female with history of alcohol use, who presented with confusion and visual hallucinations. Psychiatry asked to see due to agitation, continued confusion, visual hallucinations, trying to leave. Pt admitted with portal vein thrombosis,
CHIOMA, suspected UTI, concern for encephalopathy. Pt seen sitting in chair, calmer after receiving Ativan, parents present. Nursing staff reports pt was saying she needed to leave to brain picker her father. Pt reportedly seeing bugs, seeing a cat in
her belongings bag. Pt declined to have full eval, states she does not want a psychiatrist. UDS on admission + for amphetamine, THC; pt reportedly obtains Adderall- takes off and on (not prescribed per PDMP). Last alcohol noted to be 4 days prior
to admission. MSAS 7 this am. QTc 515.
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
No other psychiatric history
Substance Use: hx of heavy alcohol use; record shows alcohol level 508 on previous admission to 5 years ago. Adderall use; MJ use (also noted in 2019)
MSE: alert, making eye contact, sitting in chair, calm at present, looking at the menu. Pt poor historian, not answering most questions/declined to be interviewed. Does not show awareness of her medical conditions. Insight and judgement appear
impaired.
Imp: Delirium, R/o alcohol withdrawal vs encephalopathy (hepatic or Wernicke's), with hallucinations, which could be partly substance- induced from stimulant and THC
Pt lacks capacity for medical/disposition decisions at this point
Rec: continue MSAS; consider Phenobarb protocol. Will order Risperidone prn for agitation
Involve family as decision-makers, while pt is incapacitated
Psychiatry will follow
--- NOTE | 2024-02-07 12:04 | CON.ONC ---
Impression
Impression
Portal vein thrombosis by abdominal ultrasound
Abnormal liver function studies, suspect alcohol related, viral studies pending
Delirium with confabulation
Alcohol use disorder
Plan
Plan
She should ideally be evaluated with a CT with IV contrast. I am not certain that her current mental state will allow that. If she improves, I would recommend that that be done. In the interim, no objections to anticoagulation with Lovenox.
Patient History
History of Present Illness
Consult from Dr. Tipton regarding portal vein thrombosis
This 58-year-old woman was brought to the emergency room by her parents. She was noted to have delusional behavior and has been admitted. CT of the head without IV contrast is unremarkable. She is known to be a chronic alcohol abuser, and also
has been taking marijuana and Adderall. Ultrasound of the abdomen showed portal vein thrombosis. CT scan was also done, but was without IV contrast, showing no other significant abnormalities. Further meaningful history is not obtainable. Her
parents are in the room with her, and are able to confirm that most everything that she says is not true.
Past-Medical/Surgical History
Not obtainable at present.
Patient Medication
�Medication �Instructions �Recorded �Confirmed �Last Taken �Type
metoprolol succinate 50 mg 100 mg PO DAILY 02/13/19 02/06/24 02/04/19 08:00 History
tablet,extended release 24 hr
omeprazole 40 mg capsule,delayed 40 mg PO DAILY #30 caps 08/08/23 02/06/24 Unknown Rx
release
doxycycline hyclate 100 mg capsule 100 mg PO BIDPRN PRN as needed 02/06/24 02/06/24 Unknown History
tizanidine 2 mg tablet 2 mg PO HS 02/06/24 02/06/24 Unknown History
Active Medications
Generic Name Dose Route Start Last Admin
Trade Name Freq PRN Reason Stop Dose Admin
Bisacodyl 10 mg 02/06/24 19:45
Bisacodyl 10 Mg Rectal Suppository RECTAL 03/05/24 19:44
[id number] PRN
constipation
Ceftriaxone Sodium 1,000 mg 02/07/24 12:00 02/07/24 11:05
Ceftriaxone 1000 Mg / 10 Ml Vial IV 1,000 mg
Q24H BRYSON Administration
Enoxaparin Sodium 80 mg 02/07/24 11:00 02/07/24 11:08
Enoxaparin Sodium 80 Mg/0.8 Ml Syringe SC 03/06/24 10:59 80 mg
Q12H BRYSON Administration
Folic Acid 1 mg 02/07/24 08:00 02/07/24 08:46
Folic Acid 1 Mg Tablet PO 03/06/24 07:59 1 mg
DAILY BRYSON Administration
Folic Acid 1 mg/ Sodium 50.2 mls @ 200.8 mls/hr 02/06/24 19:45
Chloride IV 03/05/24 19:44
DAILYPRN PRN
if NPO
Thiamine HCl 500 mg/ Sodium 255 mls @ 255 mls/hr 02/07/24 00:00 02/07/24 08:54
Chloride IV 02/09/24 16:59 255 mls
Q8 BRYSON Administration
Lorazepam 1 mg 02/06/24 19:45 02/07/24 08:51
Lorazepam 1 Mg Tablet PO 03/05/24 19:44 1 mg
Q2HPRN PRN Administration
MSAS 5-7
Lorazepam 1 mg 02/06/24 19:45
Lorazepam 2 Mg/Ml Vial IV 03/05/24 19:44
Q1HPRN PRN
MSAS 8-11
Lorazepam 2 mg 02/06/24 19:45
Lorazepam 2 Mg/Ml Vial IV 03/05/24 19:44
Q1HPRN PRN
MSAS > 11
Metoprolol Succinate 100 mg 02/07/24 08:00 02/07/24 08:46
Metoprolol 50 Mg Extended Release Tablet PO 03/06/24 07:59 100 mg
DAILY BRYSON Administration
Ondansetron HCl 4 mg 02/06/24 19:45
Ondansetron 4 Mg/2 Ml Vial IV 03/05/24 19:44
Q6HPRN PRN
nausea and vomiting
Pantoprazole Sodium 40 mg 02/07/24 08:00 02/07/24 08:46
Pantoprazole 40 Mg Delayed Release Tablet PO 03/06/24 07:59 40 mg
DAILY BRYSON Administration
Polyethylene Glycol 17 grams 02/06/24 19:45
Polyethylene Glycol Powder 17 Grams Packet PO 03/05/24 19:44
DAILYPRN PRN
constipation
Senna/Docusate Sodium 1 tablet 02/06/24 19:45
Docusate W/Senna (Brittny-Colace) Tablet PO 03/05/24 19:44
BIDPRN PRN
constipation
Sodium Chloride 0 ml 02/06/24 19:45
Sodium Chloride 0.9% (Preservative Free) 10 Ml Vial IV 03/05/24 19:44
PRN PRN
To dilute IV Ativan
Protocol
Sodium Chloride 0 flush 02/06/24 21:00
Sodium Chloride 0.9% (Flush) Syringe IV 03/05/24 20:59
PER PROTOCOL BRYSON
Sterile Water 10 ml 02/07/24 12:00 02/07/24 11:05
Sterile Water For Injection 10 Ml Vial IV 03/06/24 11:59 10 ml
Q24H BRYSON Administration
Review of Systems
-
Unable to obtain full review of systems at this time due to: Dementia
Physical Exam
-
Physical examination shows the patient to be in no acute distress; she is actively confabulating about recent events.
HEENT exam is unremarkable.
There are no palpable nodes.
Chest is clear.
The heart is regular with no murmur or gallop.
The abdomen is soft and nontender with no organomegaly or masses.
Extremities reveal +2 edema bilaterally.
Neurologic is grossly intact.
Labs
Lab Results
WBC 8.6 10^3/uL (4.8-10.8) 02/07/24 09:51
RBC 2.71 10^6/uL (4.20-5.40) L 02/07/24 09:51
Hgb 10.0 g/dL (12.0-16.0) L 02/07/24 09:51
Hct 27.5 % (37.0-47.0) L 02/07/24 09:51
MCV 101.5 fL (81.0-99.0) H 02/07/24 09:51
MCH 36.9 pg (27.0-31.0) H 02/07/24 09:51
MCHC 36.4 g/dL (33.0-37.0) 02/07/24 09:51
RDW 14.5 % (11.5-14.5) 02/07/24 09:51
Plt Count 89 10^3/uL (130-400) L 02/07/24 09:51
MPV 12.2 fL (7.4-10.4) H 02/07/24 09:51
Abs Immat Gran (auto) 0.1 10^3/uL (0-0.05) H 02/06/24 10:24
Absolute Neuts (auto) 7.1 10^3/uL (1.4-6.5) H 02/06/24 10:24
Absolute Lymphs (auto) 1.1 10^3/uL (1.2-3.4) L 02/06/24 10:24
Absolute Monos (auto) 1.2 10^3/uL (0.1-0.6) H 02/06/24 10:24
Absolute Eos (auto) 0.1 10^3/uL (0-0.7) 02/06/24 10:24
Absolute Basos (auto) 0.0 10^3/uL (0-0.2) 02/06/24 10:24
Immature Gran % 0.6 % (0-0.5) H 02/06/24 10:24
Neutrophils % 74.8 % (42.2-75.2) 02/06/24 10:24
Lymphocytes % 11.1 % (20.5-51.1) L 02/06/24 10:
Monocytes % 12.1 % (1.7-9.3) H 02/06/24 10:24
Eosinophils % 1.0 % (0-6) 02/06/24 10:24
Basophils % 0.4 % (0-2) 02/06/24 10:24
Creatinine 1.1 mg/dL (0.6-1.0) H 02/07/24 05:40
Vital Signs
Vital Signs
Temp Pulse Resp BP Pulse Ox
98.4 F 93 16 127/85 97
02/07/24 07:40 02/07/24 08:46 02/07/24 07:40 02/07/24 08:46 02/07/24 11:22
[2024-02-07 15:20] VITALS: BP 102/69
--- NOTE | 2024-02-07 17:41 | CM ---
Confused patient who lives alone in an apartment with 2 steps to enter.Pt on 1:1 confused . Spoke with son Logan he said she uses no adaptive devices. 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 Psychiatry consulted. Will need PT OT when appropriate for dc
planning.
Never had VN/SNF
Pharmacy [facility]
PCP Dr Hooper
PLAN DC planning on going
[2024-02-07 18:37] LABS: Hepatitis B Surface Antigen Negative (Negative)
[2024-02-07 18:51] LABS: Hepatitis C Antibody Negative (Negative)
[2024-02-07 18:54] LABS: Hepatitis B Core Ab, Total Negative (Negative); Hepatitis B Surface Antibody Negative
[2024-02-07 19:39] LABS: Hepatitis A Antibody, Total Negative (Negative)
[2024-02-07 20:23] LABS: Blood Urea Nitrogen 14 mg/dl (7-17); Calcium 7.8 mg/dl (8.4-10.2); Carbon Dioxide 22 mmol/L (22-30); Chloride 96 mmol/L (98-107); Estimated Creatinine Clearance 62 ml/min; Glucose 93 mg/dl (70-99); Magnesium 0.7 mg/dl (1.6-2.3); Potassium 4.3 mmol/L (3.5-5.1); Sodium 132 mmol/L (135-145); eGFR > 60.00
--- NOTE | 2024-02-07 20:23 | PTCARENOTE ---
Pt had mag lab drawn, lab called reporting value of 0.7. SCALEMAKER made aware, mag sulfate order obtained. Will continue to monitor, patient placed back on telemetry.
[2024-02-07] MEDS: MAGNESIUM SULFATE 100 IV (20:44)
[2024-02-07 22:16] VITALS: BP 113/79
[2024-02-08 03:27] VITALS: BP 102/61
[2024-02-08 06:58] LABS: % Basophils 1.4 % (0-2); % Eosinophils 6.7 % (0-6); % Immature Granulocytes 0.5 % (0-0.5); % Monocytes 14.9 % (1.7-9.3); % Neutrophils 53.5 % (42.2-75.2); Absolute Basophils 0.1 10^3/uL (0-0.2); Absolute Eosinophils 0.5 10^3/uL (0-0.7); Absolute Lymphocytes 1.7 10^3/uL (1.2-3.4); Absolute Monocytes 1.1 10^3/uL (0.1-0.6); Absolute Neutrophils 3.9 10^3/uL (1.4-6.5); Hematocrit 23.3 % (37.0-47.0); Hemoglobin 8.6 g/dL (12.0-16.0); Mean Corp Hgb Conc. 36.9 g/dL (33.0-37.0); Mean Corpuscular Hgb 36.4 pg (27.0-31.0); Mean Corpuscular Volume 98.7 fL (81.0-99.0); Mean Platelet Volume 11.6 fL (7.4-10.4); Nucleated Red Blood Cells % 0.3 %; Platelet Count 72 10^3/uL (130-400); Red Blood Cell Count 2.36 10^6/uL (4.20-5.40); Red Cell Dist. Width 14.5 % (11.5-14.5); White Blood Cell Count 7.3 10^3/uL (4.8-10.8)
[2024-02-08 07:13] LABS: INR 2.01; PT 22.6 Sec (11.4-14.6)
[2024-02-08 07:22] LABS: ALT (SGPT) 240 U/L (0-35); Albumin 2.7 g/dl (3.5-5.0); Alkaline Phosphatase 128 U/L (38-126); Blood Urea Nitrogen 11 mg/dl (7-17); Calcium 7.9 mg/dl (8.4-10.2); Carbon Dioxide 22 mmol/L (22-30); Chloride 101 mmol/L (98-107); Direct Bilirubin 3.2 mg/dl (0.0-0.4); Estimated Creatinine Clearance 77 ml/min; Glucose 85 mg/dl (70-99); Magnesium 1.5 mg/dl (1.6-2.3); Potassium 3.8 mmol/L (3.5-5.1); Sodium 134 mmol/L (135-145); Total Bilirubin 4.6 mg/dl (0.2-1.3); Total Protein 5.6 g/dl (6.3-8.2); eGFR > 60.00
[2024-02-08 07:34] LABS: AST (SGOT) 823 U/L (14-36)
[2024-02-08 07:40] VITALS: BP 94/59
[2024-02-08] MEDS: PROTONIX 40 MG PO (08:19)
[2024-02-08] MEDS: FOLVITE 1 MG PO (08:19)
[2024-02-08] MEDS: THIAMINE INJECTION 255 MG IV ×3 (08:19→23:27)
[2024-02-08] MEDS: TOPROL XL PO (08:20)
--- NOTE | 2024-02-08 09:31 | W.PN.ONC2 ---
Today's Communication / Plan
-
daily CBC
continue therapeutic enoxaparin for now, will need to determine anticoagulation plan for discharge pending CT w contrast and heme stool
monitor for bleeding
f/u CT ab/pelvis w IVC
Impression
Impression
Portal vein thrombosis by abdominal ultrasound
Abnormal liver function studies, suspect alcohol related, hepatitis panel negative
Delirium
Alcohol use disorder
Severe hepatic steatosis
Anemia. no B12 or folate deficiency. Hgb 12.08 August 2023, 10g/dL on admission and has trended down to 8.6g/dL today. Component of dilution.
mild Thrombocytopenia UTI +/- liver disease +/- ETOH
Ecoli uti
Plan
Plan
portal vein thrombosis -therapeutic enoxaparin, f/u CT ab/pelvis w IVC
anemia, thrombocytopenia - ETOH cessation, tx UTI, check retic, iron studies, heme stool, ESR, CRP
UTI per primary service
delirium/ETOH -per psych
Subjective/Objective
Chief Complaint
no new complaints
Subjective
denies bleeding
Vital Signs:
Vital Signs
Temp Pulse Resp BP Pulse Ox
97.5 F 91 16 94/59 98
02/08/24 07:40 02/08/24 08:20 02/08/24 07:40 02/08/24 08:20 02/08/24 07:40
Lab Results:
Laboratory Data
WBC 7.3 10^3/uL (4.8-10.8) 02/08/24 06:35
Hgb 8.6 g/dL (12.0-16.0) L 02/08/24 06:35
Plt Count 72 10^3/uL (130-400) L 02/08/24 06:35
PT 22.6 Sec (11.4-14.6) H 02/08/24 06:35
INR 2.01 02/08/24 06:35
APTT 30.8 Sec (23.4-35.0) 02/06/24 21:08
eGFR > 60.00 02/08/24 06:35
Physical Exam
no acute distress
HEENT exam is unremarkable.
There are no palpable nodes.
Chest is clear.
The heart is regular
The abdomen is soft and nontender with no organomegaly or masses.
Extremities reveal +2 edema bilaterally,
Integ: Right AC brusing with possible hematoma, Left AC with bruising, psoriatic patches bilateral legs
Neurologic is grossly intact.
Review of Systems
Review of Systems
ROS notable for subjective otherwise negative
[2024-02-08 11:18] LABS: Syphilis/T. pallidum Ab Reflex Negative (Negative)
[2024-02-08 11:45] VITALS: BP 121/80
--- NOTE | 2024-02-08 11:45 | W.PN.UPDATE ---
Update Note
Progress Note Update
Attempted to see patient who was off the floor for CT of abdomen. Discussed with RN, Francis, who reports patient appeared to be doing better this AM and then continued to report VH of a cat in the window, cats on the floor, and bugs coming
up her straw.
Impression/Recommendation: Delirium with hallucinations of unknown etiology - UTI, T/C alcohol withdrawal vs encephalopathy, induced by drug use with drug screen positive for stimulant and THC - continue MSAS; Risperidone PRN for agitation.
Psychiatry will follow
[2024-02-08] MEDS: STERILE WATER FOR INJECTION 10 ML IV (12:09)
[2024-02-08] MEDS: ROCEPHIN 1000 MG IV (12:09)
[2024-02-08] MEDS: LOVENOX 80 MG SC (12:09)
[2024-02-08 15:04] VITALS: BP 107/68
--- NOTE | 2024-02-08 16:56 | W.PN.GI.CBS2 ---
Addendum entered and electronically signed by Ventura Huber MD 02/08/24 19:02:
I saw and examined the patient.
The COMMERCIAL FOOD INSTRUCTOR or PA's note was reviewed and I agree with the note.
Comment: 58-year-old female presenting with hallucinations. Likely new diagnosis of cirrhosis based on imaging and lab work with known history of alcohol abuse. Likely element of acute alcoholic hepatitis as well although unable to start
prednisolone given UTI. Her hallucinations have improved. This could be related to UTI, alcohol withdrawal, less likely encephalopathy. Also has positive U tox.
There was also concern about portal vein thrombosis but CT today did not show portal vein thrombosis so Lovenox has been stopped. This was discussed with both myself, the hospitalist, oncology.
At this time, we reinforced the importance of complete alcohol cessation and outpatient GI follow-up with both patient and family at bedside.
GI will sign off please call with ?s.
Original Note:
Today's Communication / Plan
-
-Etiology of current symptoms possibly multifactorial given underlying liver disease versus acute psychosis versus dementia versus infection with UTI versus other.
still with hallucinations but improving today per nursing
ammonia was normal
appreciate psych input
DF 37.8 on admission repeat 48.8 with control of 13 but with UTI would hold steroids
cont abx for UTI
heme eval appreciated with concern for PVT
-Monitor platelets, CBC pending this AM
-Avoid hepatotoxins
-She will need further liver workup and evaluation for cirrhosis outpatient with FibroScan versus MR elastography along with underlying chronic liver disease workup
-reinforced alcohol abstinence
-If OP w/u consistent with cirrhosis will need eventual EGD for varices screening, can evaluate gastric diverticulum findings as well.
-Further management pending above
family updated at bedside
sent message to office to arrange OP follow up
Assessment / Plan
-
The patient is a 58-year-old female with a past medical history significant for hypertension, hyperlipidemia, psoriatic arthritis, alcohol use disorder, who presented to the emergency room with hallucinations and altered mentation, with ongoing
symptoms found to have increased LFTs, thrombocytopenia, and findings on ultrasound consistent with fatty liver disease and possible cirrhosis with portal hypertension and portal vein thrombosis. We are being asked to evaluate for possible hepatic
encephalopathy. Per family she has been having difficulty putting information together, making up stories, and having hallucinations/delusions at home more recently. She does have a history of alcohol use disorder and had been in rehab in the
past, and continues to drink intermittently per patient about 2 times weekly, last 2 weeks ago per pt. Labs showing platelets 77,000, INR 1.71, total bilirubin 6.1, AST 505, ALT 138, alk phos 163. DF 37.8. Ammonia level less than 9. UA showing
increased WBCs consistent with possible UTI. CT of the head showing moderate atrophy otherwise no acute findings.
02/07 CT A/p
Interatrial septum is difficult to visualize, which can sometimes have with CT. Please correlate with any clinical signs or symptoms that would suggest atrial septal defect.
Heterogeneous fatty infiltration of the liver. Cirrhotic morphology and contour of the liver.
The main portal vein and its branches have relatively small caliber, but demonstrate contrast enhancement.
Prominent splenorenal varices within the left upper quadrant.
Large gastric fundal diverticulum.
Small to moderate amount of free pelvic fluid.
Problem list:
-altered mental status, hallucinations
-alcoholic hepatitis v chronic liver disease/cirrhosis
-Ecoli UTI
-abnormal LFT's
-US showing gallbladder distention, sludge, PVT, fatty liver CT with portal vein with small caliber but contrast enhancement
-alcohol use disorder
-mild hyponatremia
-thrombocytopenia
-CHIOMA
Other pertinent medical hx:
-HTN
-HLD
-psoriatic arthritis
-chronic GERD
-gastric fundus diverticulum on CT 02/01/24
Recommendations:
-Etiology of current symptoms possibly multifactorial given underlying liver disease versus acute psychosis versus dementia versus infection with UTI versus other.
still with hallucinations but improving today per nursing
ammonia was normal
appreciate psych input
DF 37.8 on admission repeat 48.8 with control of 13 but with UTI would hold steroids
cont abx for UTI
heme eval appreciated with concern for PVT
-Monitor platelets, CBC pending this AM
-Avoid hepatotoxins
-She will need further liver workup and evaluation for cirrhosis outpatient with FibroScan versus MR elastography along with underlying chronic liver disease workup
-reinforced alcohol abstinence
-If OP w/u consistent with cirrhosis will need eventual EGD for varices screening, can evaluate gastric diverticulum findings as well.
-Further management pending above
family updated at bedside
sent message to office to arrange OP follow up
Subjective
Subjective
Date of Service: February 08, 2024
2 gram Na diet, no stools recorded
Objective
Data Reviewed
Laboratory Data:
Laboratory Results
02/08/24 06:35
02/08/24 06:35
Laboratory Results
PT 22.6 Sec (11.4-14.6) H 02/08/24 06:35
INR 2.01 02/08/24 06:35
APTT 30.8 Sec (23.4-35.0) 02/06/24 21:08
Phosphorus Cancelled 02/06/24 21:08
Magnesium 1.5 mg/dl (1.6-2.3) L 02/08/24 06:35
Total Bilirubin 4.6 mg/dl (0.2-1.3) H 02/08/24 06:35
AST 823 U/L (14-36) H* 02/08/24 06:35
ALT 240 U/L (0-35) H 02/08/24 06:35
Alkaline Phosphatase 128 U/L (38-126) H 02/08/24 06:35
Vital Signs and I&O:
Vital Signs
Temp Pulse Resp BP Pulse Ox
98.9 F 92 18 107/68 100
02/08/24 15:04 02/08/24 15:04 02/08/24 15:04 02/08/24 15:04 02/08/24 15:04
I&O
02/07/24 02/08/24 02/09/24
06:59 06:59 06:59
Intake Total 3150 / 3150
Balance 3150 / 3150
Physical Exam
Physical Exam
HEENT: Other (mild jaundice )
Cardiology: Normal Sinus Rhythm
Pulmonary: Clear
GI: Soft, Non Distended and Non Tender
Extremities: No Edema
Neuro: Other (still with some hallucination but per staff and family some improvement with impulsive behavior )
--- NOTE | 2024-02-08 16:56 | W.PN.HOSP.TC ---
Addendum entered and electronically signed by Brett Choi MD 02/08/24 17:16:
I confirmed with radiologist that patient does not have a thrombus in his main portal vein on CT Imaging -- I updated hematology and GI -- and okay to stop therapeutic Lovenox. Will stop therapeutic Lovenox.
Original Note:
Today's Communication/Plan
-
Continue therapeutic Lovenox
Continue antibiotics for UTI -- switched to oral
Assessment / Plan
Assessment / Plan
Physical Exam
Physical Exam was not performed as patient was not present in her room at the time of attempted patient encounter.

CT Abdomen/Pelvis (as per radiologist's report)
IMPRESSION: Interatrial septum is difficult to visualize, which can sometimes have with CT. Please correlate with any clinical signs or symptoms that would suggest atrial septal defect.
Heterogeneous fatty infiltration of the liver. Cirrhotic morphology and contour of the liver.
The main portal vein and its branches have relatively small caliber, but demonstrate contrast enhancement.
Prominent splenorenal varices within the left upper quadrant.
Large gastric fundal diverticulum.
Small to moderate amount of free pelvic fluid.

Assessment/Plan
IMPRESSION:The patient is a 58 year old female with PMH significant for alcohol use, HTN, psoriatic arthritis (not on meds), and HLD presents to the ED due to hallucinations and altered mental status. She arrives with her family, and was noted to
have 'called the police on 3 separate occasions for concern of robberies in her house. When police and family arrived to the house, no evidence of any type of robberies. Patient was also reporting that she was sleeping with 5 cats, has no cats at
home ' per ED provider note. No known psych history. She has had decreased oral intake over the past week per family. She lives alone. She said her last etOH drink was wine , 4 glasses, on Wednesday, and had drinks about a week prior to that. Her
sons mention that she has a history of not telling the truth about how much she is drinking. She also said she had an Adderall in the past week, that she takes them prn, and also marijuana occasionally. She denies any other drugs. She says her
vision has changed and she feels more far-sighted recently, that has improved with using reader glasses. She also has had increased ataxia over the past few weeks-1 month, and peripheral neuropathy with burning and pain b/l feet causing her to have
difficulty walking up the stairs.
Ammonia level less than 9. CT and US with evidence for severe fatty liver, and LFTs including total bilirubin are elevated. US shows portal vein thrombosis and stigmata of portal HTN.
ED txt:
NS IVF bolus 1 liter
#AMS, with hallucinations -- less likely to be hepatic encephalopathy, could be from UTI
-IVF, monitor, avoid nephrotoxic agents, consider Nephro cx pending repeat labs, repeat labs in am
-GI consult appreciated- rec to hold on MRCP at this time
-Alcohol withdrawal protocol
-Continue high dose IV Thiamine, and continue every 8 hours for 9 doses then re-evaluate
-Folic acid daily
-check folate level (6.7), B-12 (greater than 1000), TSH (elevated at 6.26), syphilis test negative
-parham culture due to infection can precipitate HE- blood culture; urine culture (urine culture growing E. coli)
-Consulted psychiatry; appreciate their evaluation and recommendations
-Risperidone PRN for agitation
#CHIOMA - RESOLVED - Creat 2.0 (baseline 0.4-0.6)
-IVF, repeat labs , as per above
#Possible splenic vein thrombosis in recent outpatient ultrasound
#Peripheral neuropathy
-B12 level is high
#UA positive for Amphetamines and THC, UA abnormal 2+ LE, 40-50 WBC, many bacteria, with suprapubic tenderness
#E. coli UTI (positive urine culture with suprapubic tenderness)
-she takes Adderall prn, uses marijuana occasionally
-UA culture showing E. coli, Rocephin given x2 doses, switched to Cefdinir 300 mg PO BID based on sensitivities
#GB sludge, distended, no evidence for obstruction, no abdominal pain
-no evidence for stones, no imaging per GI as of yet, and continue to monitor
#Portal Vein thrombosis proximal main portal vein
-US - Proximal main portal vein thrombosis. Associated hepatofugal flow in the distal main pulmonary vein. This can be seen with portal hypertension
-Lovenox 1 mg/kg Q12H for now
#Transaminitis- AST 505, ALT 138, AP 163, TB 6.1
-US abdomen hepatic fatty infiltration, severe on CT scan
# Alcoholic liver disease -alcohol cessation
- Likely cirrhosis and will need outpatient follow-up
#Thrombocytopenia Plt 77 (92 in August 2023 but normal prior to then in 2018)
#Anemia Hgb 10.0 (12.7 in August 2023) with MCV 100
-B12, folate levels as above
#Hyponatremia 134
DVT proph-Therapeutic Lovenox as above
Full Code
On 02/07/24, I spoke to patient's son Logan, who would agree to any need for 302 or restraint if needed. I answered all of Logan's questions and concerns to satisfaction.
Anticipated Discharge: > 48 hours
Subjective/Interval History
-
Date of Service: February 08, 2024
Patient was not present in her room at the time of attempted patient encounter. Chart reviewed.
Objective Data
-
Labs:
Laboratory Results
02/08/24
06:35
WBC 7.3
Hgb 8.6 L
Hct 23.3 L
Plt Count 72 L
PT 22.6 H
INR 2.01
Sodium 134 L
Potassium 3.8
Chloride 101
Carbon Dioxide 22
BUN 11
Creatinine 0.8
Glucose 85
Calcium 7.9 L
Total Bilirubin 4.6 H
AST 823 H*
ALT 240 H
Alkaline Phosphatase 128 H
Vital Signs:
Vital Signs
Temp Pulse Resp BP Pulse Ox
98.9 F 92 18 107/68 100
02/08/24 15:04 02/08/24 15:04 02/08/24 15:04 02/08/24 15:04 02/08/24 15:04
I&O
02/07/24 02/08/24 02/09/24
06:59 06:59 06:59
Intake Total 3150 / 3150
Balance 3150 / 3150
[2024-02-08] MEDS: OMNICEF 300 MG PO (19:27)
[2024-02-08 20:00] VITALS: BP 99/64
[2024-02-08 23:23] VITALS: BP 95/60
[2024-02-09 03:45] VITALS: BP 99/54
[2024-02-09 06:38] LABS: Hematocrit 23.8 % (37.0-47.0); Hemoglobin 8.7 g/dL (12.0-16.0); Mean Corp Hgb Conc. 36.6 g/dL (33.0-37.0); Mean Corpuscular Hgb 36.4 pg (27.0-31.0); Mean Corpuscular Volume 99.6 fL (81.0-99.0); Mean Platelet Volume 11.5 fL (7.4-10.4); Platelet Count 76 10^3/uL (130-400); Red Blood Cell Count 2.39 10^6/uL (4.20-5.40); Red Cell Dist. Width 15.4 % (11.5-14.5); White Blood Cell Count 7.7 10^3/uL (4.8-10.8)
[2024-02-09 06:43] LABS: INR 2.14; PT 23.8 Sec (11.4-14.6)
--- NOTE | 2024-02-09 06:50 | W.PN.ONC2 ---
Today's Communication / Plan
-
No PV thrombosis. Enoxaparin stopped. Heme will sign off.
Impression
Impression
alcoholic hepatitis with suspected cirrhosis
Delirium
Anemia. no B12 or folate deficiency. Hgb 12.08 August 2023, 10g/dL on admission and has trended down to 8.6. Component of dilution.
mild Thrombocytopenia UTI +/- liver disease +/- ETOH
Ecoli uti
Plan
Plan
portal vein thrombosis was NOT seen on F/U CT scan. Enoxaparin D/C'd
anemia, thrombocytopenia - ETOH cessation, tx UTI
Subjective/Objective
Chief Complaint
ACS Heme F/U
Subjective
No complaints. Denies RUQ or any abdominal pain. Lovenox stopped when F/U CT showed no evidence of PV thrombosis.
Vital Signs:
Vital Signs
Temp Pulse Resp BP Pulse Ox
97.8 F 82 16 99/54 98
02/09/24 03:45 02/09/24 03:45 02/09/24 03:45 02/09/24 03:45 02/09/24 03:45
Lab Results:
Laboratory Data
WBC 7.7 10^3/uL (4.8-10.8) 02/09/24 05:52
Hgb 8.7 g/dL (12.0-16.0) L 02/09/24 05:52
Plt Count 76 10^3/uL (130-400) L 02/09/24 05:52
PT 23.8 Sec (11.4-14.6) H 02/09/24 05:52
INR 2.14 02/09/24 05:52
APTT 30.8 Sec (23.4-35.0) 02/06/24 21:08
eGFR > 60.00 02/08/24 06:35
Physical Exam
Cardiology: S1 and S2
Pulmonary: Clear
GI: Soft
[2024-02-09 07:00] VITALS: BP 114/67
[2024-02-09 07:04] LABS: ALT (SGPT) 271 U/L (0-35); Albumin 2.6 g/dl (3.5-5.0); Alkaline Phosphatase 129 U/L (38-126); Blood Urea Nitrogen 5 mg/dl (7-17); Calcium 7.9 mg/dl (8.4-10.2); Carbon Dioxide 23 mmol/L (22-30); Chloride 103 mmol/L (98-107); Estimated Creatinine Clearance 77 ml/min; Glucose 101 mg/dl (70-99); Iron 114 ug/dl (37-170); Sodium 136 mmol/L (135-145); Total Bilirubin 5.8 mg/dl (0.2-1.3); Total Protein 5.6 g/dl (6.3-8.2); eGFR > 60.00
[2024-02-09 07:21] LABS: Erythrocyte Sed Rate 35 mm/hour (0-20)
[2024-02-09 07:22] LABS: AST (SGOT) 847 U/L (14-36); Percent Saturation 71 % (20-50); Total Iron Binding Capacity 160 ug/dl (265-497)
[2024-02-09] MEDS: MAGNESIUM SULFATE 50 IV ×2 (08:12→16:24)
[2024-02-09] MEDS: TOPROL XL 100 MG PO (09:09)
[2024-02-09] MEDS: OMNICEF 300 MG PO ×2 (09:10→19:35)
[2024-02-09] MEDS: PROTONIX 40 MG PO (09:10)
--- NOTE | 2024-02-09 09:10 | W.PN.HOSP.TC ---
Today's Communication/Plan
-
Magnesium very low, being replaced again today, stopped PPI
Assessment / Plan
Assessment / Plan
Physical Exam
General: No Apparent Distress, Comfortable and Conversant
HEENT: Normocephalic, Moist mucous membranes
Respiratory: Clear
Cardiac: S1/S2 and Regular Rhythm
GI: Soft, Non Tender, Non Distended and Normal Bowel Sounds
Musculoskeletal: No Cyanosis, No Edema
Skin: Warm and Dry
Neuro: AAO x 3, No Motor Deficits, Nonfocal/grossly intact and Other (no tremor)
Psych: Calm

CT Abdomen/Pelvis (as per radiologist's report)
IMPRESSION: Interatrial septum is difficult to visualize, which can sometimes have with CT. Please correlate with any clinical signs or symptoms that would suggest atrial septal defect.
Heterogeneous fatty infiltration of the liver. Cirrhotic morphology and contour of the liver.
The main portal vein and its branches have relatively small caliber, but demonstrate contrast enhancement.
Prominent splenorenal varices within the left upper quadrant.
Large gastric fundal diverticulum.
Small to moderate amount of free pelvic fluid.

Assessment/Plan
IMPRESSION:The patient is a 58 year old female with PMH significant for alcohol use, HTN, psoriatic arthritis (not on meds), and HLD presents to the ED due to hallucinations and altered mental status. She arrives with her family, and was noted to
have 'called the police on 3 separate occasions for concern of robberies in her house. When police and family arrived to the house, no evidence of any type of robberies. Patient was also reporting that she was sleeping with 5 cats, has no cats at
home ' per ED provider note. No known psych history. She has had decreased oral intake over the past week per family. She lives alone. She said her last etOH drink was wine , 4 glasses, on Wednesday, and had drinks about a week prior to that. Her
sons mention that she has a history of not telling the truth about how much she is drinking. She also said she had an Adderall in the past week, that she takes them prn, and also marijuana occasionally. She denies any other drugs. She says her
vision has changed and she feels more far-sighted recently, that has improved with using reader glasses. She also has had increased ataxia over the past few weeks-1 month, and peripheral neuropathy with burning and pain b/l feet causing her to have
difficulty walking up the stairs.
Ammonia level less than 9. CT and US with evidence for severe fatty liver, and LFTs including total bilirubin are elevated. US shows portal vein thrombosis and stigmata of portal HTN.
ED txt:
NS IVF bolus 1 liter
#AMS, with hallucinations -- less likely to be hepatic encephalopathy, could be from UTI
#Acute TME
-IVF, monitor, avoid nephrotoxic agents, consider Nephro cx pending repeat labs, repeat labs in am
-GI consult appreciated- rec to hold on MRCP at this time
-Alcohol withdrawal protocol
-Continue high dose IV Thiamine, and continue every 8 hours for 9 doses then re-evaluate
-Folic acid daily
-checked folate level (6.7), B-12 (greater than 1000), TSH (elevated at 6.26), syphilis test negative
-parham culture due to infection can precipitate HE- blood culture; urine culture (urine culture grew E. coli)
-Consulted psychiatry; appreciate their evaluation and recommendations
-Risperidone PRN for agitation
#CHIOMA - RESOLVED - Creat 2.0 (baseline 0.4-0.6)
-IVF, repeat labs , as per above
# Hypomagnesemia
-Worsening
-Consulted nephrology, who recommended: stopping PPI and replacing with 4 grams total of IV magnesium today
#Peripheral neuropathy
-B12 level is high
#UA positive for Amphetamines and THC, UA abnormal 2+ LE, 40-50 WBC, many bacteria, with suprapubic tenderness
#E. coli UTI (positive urine culture with suprapubic tenderness)
-she takes Adderall prn, uses marijuana occasionally
-UA culture showing E. coli, Rocephin given x2 doses, switched to Cefdinir 300 mg PO BID based on sensitivities
#GB sludge, distended, no evidence for obstruction, no abdominal pain
-no evidence for stones, no imaging per GI as of yet, and continue to monitor
#NO portal Vein thrombosis proximal main portal vein
-On CT imaging, confirmed that there is no portal vein thrombosis
-STOPPED Lovenox 1 mg/kg Q12H
#Transaminitis- AST 505, ALT 138, AP 163, TB 6.1
-US abdomen hepatic fatty infiltration, severe on CT scan
# Alcoholic liver disease -alcohol cessation
- Likely cirrhosis and will need outpatient follow-up
#Thrombocytopenia Plt 77 (92 in August 2023 but normal prior to then in 2018)
#Anemia Hgb 10.0 (12.7 in August 2023) with MCV 100
-B12, folate levels as above
#Hyponatremia 134
DVT proph-Therapeutic Lovenox as above
Full Code
On 02/07/24, I spoke to patient's son Logan, who would agree to any need for 302 or restraint if needed. I answered all of Logan's questions and concerns to satisfaction.
Anticipated Discharge: 24 - 48 hours
Subjective/Interval History
-
Date of Service: February 09, 2024
Patient was seen and examined. She reported no new symptoms or complaints.
Objective Data
-
Labs:
Laboratory Results
02/09/24
05:52
WBC 7.7
Hgb 8.7 L
Hct 23.8 L
Plt Count 76 L
PT 23.8 H
INR 2.14
Sodium 136
Potassium 4.0
Chloride 103
Carbon Dioxide 23
BUN 5 L
Creatinine 0.8
Glucose 101 H
Calcium 7.9 L
Total Bilirubin 5.8 H
AST 847 H*
ALT 271 H
Alkaline Phosphatase 129 H
Vital Signs:
Vital Signs
Temp Pulse Resp BP Pulse Ox
99.0 F 92 16 114/67 98
02/09/24 07:00 02/09/24 07:00 02/09/24 07:00 02/09/24 07:00 02/09/24 07:00
I&O
02/08/24 02/09/24 02/10/24
06:59 06:59 06:59
Intake Total 3150 / 3150 120 / 120
Balance 3150 / 3150 120 / 120
[2024-02-09] MEDS: FOLVITE 1 MG PO (09:11)
[2024-02-09] MEDS: THIAMINE INJECTION 255 MG IV ×2 (10:23→17:21)
[2024-02-09 11:00] VITALS: BP 98/67
--- NOTE | 2024-02-09 12:14 | W.PN.UPDATE ---
Update Note
Progress Note Update
patient seen chart reviewed. discussed w nursing. the patient was admitted for change in mental status. she c/o visual and auditory hallucinations and was confused. there was also ? of uti and splenic vein thrombosis not now felt to be the case.
the patient has markedly elevated liver enzymes. her creatinine was elevated and is now coming down. uds + for cannabis and adderall the latter is apparently prescribed. the patient has not been requiring prn medication as per amsas. nursing tells
me scores have been low. hallucinations are resolved at this point. mental status seems at baseline with no psychosis. she is in no physical distress. we discussed the deletrious effect of etoh on her physical health. she has had in the past up to
one year sobriety....about five years ago was in rehab. she at this point is refusing any type of rehab assist. she does not want iop, out pt nor is she interested in going to AA. i suggested she talk to [facility] but she does not want to. said she
wants to 'do it by myself' emphasized a plan of sobriety could help her. even if she wants sobriety very much that alone does not make it happen. there is no etoh currently in the home. suggested if she cannot achieve sobriety she call [facility] (she
resides locally ) of even the crisis center and they can help her get some help. vital signs look okay. bp is actually on the low side. will look in on her tomorrow if she remains here.
--- NOTE | 2024-02-09 12:15 | CM ---
CM following re: discharge planning.
Reviewed pt's chart, met with pt.
Pt reports she ;lives alone in an apartment, has 3 supportive sons. 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 Pt expressed her desire to return back home at discharge with family support.
PT and OT evaluations pending.
D/C plan: home with anticipated no needs. Family to transport at discharge.
CM will follow with discharge plan updates as hospitalization progresses
--- NOTE | 2024-02-09 14:51 | PN.CDI ---
CDI
- -
CDI:
Physician Documentation Request
Admit Date: 02/06/24 17:41
Dear Doctor Steph,
Clinical Indicators:
Patient admitted with altered mental status and hallucinations.
CHIOMA, hyponatremia, and transaminitis present on admission.
UDS:
02/06/24
13:36
Ur Amphetamines Screen Positive H
U Marijuana (THC) Screen Positive H
02/06 Psych consult,'Delirium, R/o alcohol withdrawal vs encephalopathy... which could be partly substance- induced from stimulant and THC'
MSAS Scores: 0-7;
02/07 PN, 'AMS, with hallucinations -- less likely to be hepatic encephalopathy, could be from UTI'
Based on the above, could you clarify in the Progress Notes and Discharge Summary which, if any of the following, is the most likely etiology of the confusion/altered mental status:
Acute Metabolic Encephalopathy
Toxic Metabolic Encephalopathy
Delirium due alcohol withdrawal
Other, please specify
Use of terms such as suspected, likely, concern for, or probable (associated with a specific diagnosis that is being evaluated, monitored, or treated as if it exists) are acceptable and can be coded in the inpatient setting, when documented at the
time of discharge.
Thank you,
Kusum Pike RN BSN
CDI Specialist
available via tiger text
Please use your independent medical judgment in providing your response.
--- NOTE | 2024-02-09 15:12 | PN.CDI ---
CDI
- -
CDI:
Physician Documentation Request
Admit Date: 02/06/24 17:41
Dear Doctor Steph,
Clinical Indicators:
Patient admitted with altered mental status and hallucinations.
02/06, 02/08 Magnesium IV riders given.
Magnesium levels:
02/07/24 02/08/24 02/09/24
19:55 06:35 05:52
Magnesium 0.7 L* 1.5 L 1.0 L
Based on the above, could you clarify in the progress notes, the appropriate diagnosis, if significant, that supports the above abnormalities and additional evaluation, monitoring and/or treatment rendered:
Hypomagnesemia
Abnormal lab values, clinically insignificant
Other, please specify
Use of terms such as suspected, likely, concern for, or probable (associated with a specific diagnosis that is being evaluated, monitored, or treated as if it exists) are acceptable and can be coded in the inpatient setting, when documented at the
time of discharge.
Thank you,
Kusum Pike RN BSN
CDI Specialist
available via tiger text
Please use your independent medical judgment in providing your response.
[2024-02-09 15:30] VITALS: BP 90/58
--- NOTE | 2024-02-09 15:35 | W.CON.NEPH ---
Consultation
-
Date/Time Consultation Requested: 02/09/24 0750
Date/Time Consultation Performed: 02/09/24 1615
Requesting Provider: Brett De La O
Performing Provider: Elton Lion
Reason for Consultation: Hypomagnesemia
Medical History
-
Chief Complaint: AMS
History of Present Illness:
58 year old female with PMH significant for alcohol use on PPI, HTN on metoprolol, psoriatic arthritis (not on meds), and HLD presents to the ED due to hallucinations and altered mental status on 02/06. She also has chr ETOH use too. 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 She denies any other drugs. She also has had increased ataxia over the past few weeks-1 month, and peripheral neuropathy with burning and pain b/l feet causing
her to have difficulty walking up the stairs.
US shows portal vein thrombosis and stigmata of portal HTN. Was started on AC however CT showed no clot and this was discontinued. She also diagnosed with new cirrhosis and ?hepatitis per GI. Also Treated for UTI too. Since admit her magnesium is
low despite replacement hence nephrology consulted. She had mild hypokalemia on admit which improved now. She offers no n/v, diarrhea. No Cp or sob. 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
Past Medical History
HTN and Hypercholesterolemia
psoriatic arthritis
ETOH use
Social History
Tobacco: Other (occasional smoker)
Alcohol: Chronic Alcoholic
Drug: Marijuana
Living: Alone
Family History
Family History: Not Pertinent
Allergies / Home Medications
Allergy/AdvReac Type Severity Reaction Status Date / Time
No Known Allergies Allergy Unverified 02/06/24 12:36
�Medication �Instructions �Recorded �Confirmed �Type
metoprolol succinate 50 mg 100 mg PO DAILY Blood Pressure 02/13/19 02/06/24 History
tablet,extended release 24 hr
omeprazole 40 mg capsule,delayed 40 mg PO DAILY #30 caps 08/08/23 02/06/24 Rx
release
doxycycline hyclate 100 mg capsule 100 mg PO BIDPRN PRN as needed 02/06/24 02/06/24 History
tizanidine 2 mg tablet 2 mg PO HS Muscle Spasms 02/06/24 02/06/24 History
Review of Systems
-
All complete 12 point ROS have been inquired and found negative other than stated in HPI
Physical Exam
Vital Signs
Vital Signs
Temp Pulse Resp BP Pulse Ox
98.7 F 85 16 98/67 97
02/09/24 11:00 02/09/24 11:00 02/09/24 11:00 02/09/24 11:00 02/09/24 11:00
Lab Results
WBC 7.7 10^3/uL (4.8-10.8) 02/09/24 05:52
RBC 2.39 10^6/uL (4.20-5.40) L 02/09/24 05:52
Hgb 8.7 g/dL (12.0-16.0) L 02/09/24 05:52
Hct 23.8 % (37.0-47.0) L 02/09/24 05:52
Plt Count 76 10^3/uL (130-400) L 02/09/24 05:52
Sodium 136 mmol/L (135-145) 02/09/24 05:52
Potassium 4.0 mmol/L (3.5-5.1) 02/09/24 05:52
Chloride 103 mmol/L (98-107) 02/09/24 05:52
Carbon Dioxide 23 mmol/L (22-30) 02/09/24 05:52
BUN 5 mg/dl (7-17) L 02/09/24 05:52
Creatinine 0.8 mg/dL (0.6-1.0) 02/09/24 05:52
eGFR > 60.00 02/09/24 05:52
Glucose 101 mg/dl (70-99) H 02/09/24 05:52
Calcium 7.9 mg/dl (8.4-10.2) L 02/09/24 05:52
Phosphorus Cancelled 02/06/24 21:08
Albumin 2.6 g/dl (3.5-5.0) L 02/09/24 05:52
CT abd :contrast
IMPRESSION: Interatrial septum is difficult to visualize, which can sometimes have with CT. Please correlate with any clinical signs or symptoms that would suggest atrial septal defect.
Heterogeneous fatty infiltration of the liver. Cirrhotic morphology and contour of the liver.
The main portal vein and its branches have relatively small caliber, but demonstrate contrast enhancement.
Prominent splenorenal varices within the left upper quadrant.
Large gastric fundal diverticulum.
Small to moderate amount of free pelvic fluid.
02/05:
CT head;
IMPRESSION:
No acute intracranial abnormality noted.
Physical Exam
General: Awake, Alert, Oriented, AOx3 and No Distress
HEENT: EOMI, Anicteric, Facial Symmetry and No JVD
Respiratory: Clear, Normal Excursion and Nonlabored Respirations
Cardiac: S1/S2 and Regular Rate/Rhythm
Breast: Deferred by me
Abdomen: Soft, Nontender and Nondistended
Musculoskeletal: No Cyanosis and No Edema
Skin: No Rash
Neuro: Nonfocal/Grossly Intact
Psych: Mood/afflect pleasant, Insight/judgement good and Appropriate
Data Reviewed
-
Labs: Labs Reviewed by me and Discussed with Patient
Assessment/Plan
-
IMP:
AMS, with hallucinations -TME
CHIOMA - RESOLVED
Hypomagnesemia
Possible splenic vein thrombosis in recent outpatient ultrasound
Peripheral neuropathy
UA positive for Amphetamines and THC
E. coli UTI
Transaminitis
Alcoholic liver disease-cirrhosis
Thrombocytopenia
Anemia
Hyponatremia-resolved
PLan:
A/w AMS-multifactorial
CHIOMA on presentation resolved
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
would hold PPI and cont aggressive IV mg replacement, also need to start po mag
if still no improvement likely can get 24hr urine mg collection to r/o renal wasting
also can check PTH, silvano corrected is normal
K has been repleted too
BP are soft, suggest to decrease dose of BB
d/w pt
[2024-02-09] MEDS: LOVENOX 40 MG SC (17:21)
[2024-02-09] MEDS: MAGNESIUM OXIDE 500 MG PO (19:36)
--- NOTE | 2024-02-09 19:45 | PTCARENOTE ---
Pt reported unable to sleep previous nights during this admission. Pt requested medication to help her sleep. 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 Will continue to monitor, call [facility] in reach.
[2024-02-09] MEDS: MELATONIN 5 MG PO (22:03)
[2024-02-09 23:00] VITALS: BP 119/73
[2024-02-10 06:42] LABS: Calcium 7.6 mg/dl (8.4-10.2); Magnesium 1.3 mg/dl (1.6-2.3)
[2024-02-10 08:00] LABS: Hematocrit 23.9 % (37.0-47.0); Hemoglobin 8.4 g/dL (12.0-16.0); Mean Corp Hgb Conc. 35.1 g/dL (33.0-37.0); Mean Corpuscular Volume 99.6 fL (81.0-99.0); Mean Platelet Volume 11.6 fL (7.4-10.4); Platelet Count 76 10^3/uL (130-400); Red Cell Dist. Width 15.5 % (11.5-14.5); White Blood Cell Count 7.7 10^3/uL (4.8-10.8)
[2024-02-10 08:47] LABS: ALT (SGPT) 264 U/L (0-35); AST (SGOT) 730 U/L (14-36); Albumin 2.3 g/dl (3.5-5.0); Alkaline Phosphatase 131 U/L (38-126); Blood Urea Nitrogen 2 mg/dl (7-17); Carbon Dioxide 23 mmol/L (22-30); Chloride 104 mmol/L (98-107); Estimated Creatinine Clearance 89 ml/min; Glucose 103 mg/dl (70-99); Potassium 3.6 mmol/L (3.5-5.1); Sodium 136 mmol/L (135-145); Total Bilirubin 5.8 mg/dl (0.2-1.3); Total Protein 5.3 g/dl (6.3-8.2); eGFR > 60.00
[2024-02-10] MEDS: OMNICEF 300 MG PO ×2 (08:49→20:58)
[2024-02-10] MEDS: FOLVITE 1 MG PO (08:49)
[2024-02-10] MEDS: TOPROL XL 100 MG PO (08:49)
[2024-02-10] MEDS: MAGNESIUM OXIDE 500 MG PO (08:49)
[2024-02-10 08:53] VITALS: BP 111/74
[2024-02-10 10:40] VITALS: PULSE 82; O2SAT 98
--- NOTE | 2024-02-10 11:32 | W.PN.UPDATE ---
Update Note
Progress Note Update
patient seen chart reviewed. spoke with nursing and dr mccormick. ms delgado continues to improve. at this point she feels she is back to her usual self. we discussed again the negative impact of etoh on her life and the importance of remaining
sober. she does seem committed to sobriety but i am concerned she underestimates the enormity of the task of attaining prison sobriety. she did say if she relapses she will seek help either by calling [facility] or crisis. it is possible that she will
leave today. she no longer seems to be in wdrawal. liver enzymes slowly coming down. no prs of ativan yesterday or today. psych will sign off.
[2024-02-10] MEDS: MAGNESIUM SULFATE 50 IV (14:51)
--- NOTE | 2024-02-10 15:30 | CM ---
met with patient at bedside.patient was seen by psych and she is improving.no longer being followed by psych.patient is stable but will be kept overnight to monitor her magnesium.Plan:dc home with no needs.
[2024-02-10 16:45] VITALS: BP 128/76
--- NOTE | 2024-02-10 16:55 | W.PN.NEPH.PH ---
Today's Communication / Plan
-
increase po mag to 800mg BID, IV mg 2gm today
Assessment/Plan
-
IMP:
AMS, with hallucinations -TME
CHIOMA - RESOLVED
Hypomagnesemia
Possible splenic vein thrombosis in recent outpatient ultrasound
Peripheral neuropathy
UA positive for Amphetamines and THC
E. coli UTI
Transaminitis
Alcoholic liver disease-cirrhosis
Thrombocytopenia
Anemia
Hyponatremia-resolved
PLan:
A/w AMS-multifactorial
CHIOMA on presentation resolved
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
would hold PPI and cont IV mg replacement, increase dose of po mag
if still no improvement likely can get 24hr urine mg collection to r/o renal wasting -can be done out pt
also can check PTH, silvano corrected is normal
BP are stable on
d/w pt
BMP and mg on Wednesday after d/c
f/u PCP , nephro if needed
-
-
Date of Service: February 10, 2024
CC / HPI / ROS
-
Chief Complaint:
Hypomagnesemia
History of Present Illness:
mg better at 1.3, BP stable
no fever. k normal
BUN only 2
Review of Systems:
no cp or sob
feels well
Labs
-
Labs:
WBC 7.7 10^3/uL (4.8-10.8) 02/10/24 05:48
RBC 2.40 10^6/uL (4.20-5.40) L 02/10/24 05:48
Hgb 8.4 g/dL (12.0-16.0) L 02/10/24 05:48
Hct 23.9 % (37.0-47.0) L 02/10/24 05:48
Plt Count 76 10^3/uL (130-400) L 02/10/24 05:48
Sodium 136 mmol/L (135-145) 02/10/24 05:48
Sodium Cancelled 02/10/24 05:48
Potassium 3.6 mmol/L (3.5-5.1) 02/10/24 05:48
Potassium Cancelled 02/10/24 05:48
Chloride 104 mmol/L (98-107) 02/10/24 05:48
Chloride Cancelled 02/10/24 05:48
Carbon Dioxide 23 mmol/L (22-30) 02/10/24 05:48
Carbon Dioxide Cancelled 02/10/24 05:48
BUN 2 mg/dl (7-17) L 02/10/24 05:48
BUN Cancelled 02/10/24 05:48
Creatinine 0.7 mg/dL (0.6-1.0) 02/10/24 05:48
Creatinine Cancelled 02/10/24 05:48
eGFR > 60.00 02/10/24 05:48
eGFR Cancelled 02/10/24 05:48
Glucose 103 mg/dl (70-99) H 02/10/24 05:48
Glucose Cancelled 02/10/24 05:48
Calcium 7.6 mg/dl (8.4-10.2) L 02/10/24 05:48
Calcium Cancelled 02/10/24 05:48
Phosphorus Cancelled 02/06/24 21:08
Albumin 2.3 g/dl (3.5-5.0) L 02/10/24 05:48
Albumin Cancelled 02/10/24 05:48
Physical Exam
-
Vital Signs:
Vital Signs
Temp Pulse Resp BP Pulse Ox
98.3 F 82 16 111/74 97
02/10/24 08:53 02/10/24 08:53 02/10/24 08:53 02/10/24 08:53 02/10/24 08:53
Cardiovascular:: Regular rate and rhythm
Respiratory:: Bilateral: CTA
Lung Excursion:: Normal
Abdomen:: Nontender and Soft
Extremity Edema:: None: Bilateral:
Pollard Catheter: No
[2024-02-10] MEDS: LOVENOX 40 MG SC (18:05)
--- NOTE | 2024-02-10 18:43 | W.PN.HOSP.TC ---
Today's Communication/Plan
-
I spoke with nephrology today who recommended observing patient's Magnesium one more day, and then discharging tomorrow
PO Magnesium increased
Additional IV Magnesium given today
Assessment / Plan
Assessment / Plan
Physical Exam
General: No Apparent Distress, Comfortable and Conversant
HEENT: Normocephalic, Moist mucous membranes
Respiratory: Clear
Cardiac: S1/S2 and Regular Rhythm
GI: Soft, Non Tender, Non Distended and Normal Bowel Sounds
Musculoskeletal: No Cyanosis, No Edema
Skin: Warm and Dry
Neuro: AAO x 3, No Motor Deficits, Nonfocal/grossly intact and Other (no tremor)
Psych: Calm

CT Abdomen/Pelvis (as per radiologist's report)
IMPRESSION: Interatrial septum is difficult to visualize, which can sometimes have with CT. Please correlate with any clinical signs or symptoms that would suggest atrial septal defect.
Heterogeneous fatty infiltration of the liver. Cirrhotic morphology and contour of the liver.
The main portal vein and its branches have relatively small caliber, but demonstrate contrast enhancement.
Prominent splenorenal varices within the left upper quadrant.
Large gastric fundal diverticulum.
Small to moderate amount of free pelvic fluid.

Assessment/Plan
IMPRESSION:The patient is a 58 year old female with PMH significant for alcohol use, HTN, psoriatic arthritis (not on meds), and HLD presents to the ED due to hallucinations and altered mental status. She arrives with her family, and was noted to
have 'called the police on 3 separate occasions for concern of robberies in her house. When police and family arrived to the house, no evidence of any type of robberies. Patient was also reporting that she was sleeping with 5 cats, has no cats at
home ' per ED provider note. No known psych history. She has had decreased oral intake over the past week per family. She lives alone. She said her last etOH drink was wine , 4 glasses, on Wednesday, and had drinks about a week prior to that. Her
sons mention that she has a history of not telling the truth about how much she is drinking. She also said she had an Adderall in the past week, that she takes them prn, and also marijuana occasionally. She denies any other drugs. She says her
vision has changed and she feels more far-sighted recently, that has improved with using reader glasses. She also has had increased ataxia over the past few weeks-1 month, and peripheral neuropathy with burning and pain b/l feet causing her to have
difficulty walking up the stairs.
Ammonia level less than 9. CT and US with evidence for severe fatty liver, and LFTs including total bilirubin are elevated. US shows portal vein thrombosis and stigmata of portal HTN.
ED txt:
NS IVF bolus 1 liter
#AMS, with hallucinations -- less likely to be hepatic encephalopathy, could be from UTI
#Acute TME
-IVF, monitor, avoid nephrotoxic agents, consider Nephro cx pending repeat labs, repeat labs in am
-GI consult appreciated- rec to hold on MRCP at this time
-Alcohol withdrawal protocol
-Continue high dose IV Thiamine, and continue every 8 hours for 9 doses then re-evaluate
-Folic acid daily
-checked folate level (6.7), B-12 (greater than 1000), TSH (elevated at 6.26), syphilis test negative
-parham culture due to infection can precipitate HE- blood culture; urine culture (urine culture grew E. coli)
-Consulted psychiatry; appreciate their evaluation and recommendations
-Risperidone PRN for agitation
#CHIOMA - RESOLVED - Creat 2.0 (baseline 0.4-0.6)
-IVF, repeat labs , as per above
# Hypomagnesemia from PPI, Alcoholism and Poor PO intake
-Slowly improving
-Increase po magnesium to 750 mg BID
-Consulted nephrology, who recommended: stopping PPI and replacing with IV Magnesium
#Peripheral neuropathy
-B12 level is high
#UA positive for Amphetamines and THC, UA abnormal 2+ LE, 40-50 WBC, many bacteria, with suprapubic tenderness
#E. coli UTI (positive urine culture with suprapubic tenderness)
-she takes Adderall prn, uses marijuana occasionally
-UA culture showing E. coli, Rocephin given x2 doses, switched to Cefdinir 300 mg PO BID based on sensitivities
#GB sludge, distended, no evidence for obstruction, no abdominal pain
-no evidence for stones, no imaging per GI as of yet, and continue to monitor
#NO portal Vein thrombosis proximal main portal vein
-On CT imaging, confirmed that there is no portal vein thrombosis
-STOPPED Lovenox 1 mg/kg Q12H
#Transaminitis- AST 505, ALT 138, AP 163, TB 6.1
-US abdomen hepatic fatty infiltration, severe on CT scan
# Alcoholic liver disease -alcohol cessation
- Likely cirrhosis and will need outpatient follow-up
#Thrombocytopenia Plt 77 (92 in August 2023 but normal prior to then in 2018)
#Anemia Hgb 10.0 (12.7 in August 2023) with MCV 100
-B12, folate levels as above
#Hyponatremia 134
DVT proph-Therapeutic Lovenox as above
Full Code
On 02/07/24, I spoke to patient's son Logan, who would agree to any need for 302 or restraint if needed. I answered all of Logan's questions and concerns to satisfaction.
Anticipated Discharge: Within 24 hours
Subjective/Interval History
-
Date of Service: February 10, 2024
Patient was seen and examined. She denied any new symptoms or complaints.
Objective Data
-
Labs:
Laboratory Results
02/10/24 02/10/24 02/10/24
05:48 05:48 05:48
WBC 7.7
Hgb 8.4 L
Hct 23.9 L
Plt Count 76 L
Sodium 136 Cancelled
Potassium 3.6 Cancelled
Chloride 104
Carbon Dioxide
BUN
Creatinine
Glucose
Calcium
Total Bilirubin
AST
ALT
Alkaline Phosphatase
02/10/24 02/10/24 02/10/24
05:48 05:48 05:48
WBC
Hgb
Hct
Plt Count
Sodium
Potassium
Chloride Cancelled
Carbon Dioxide 23 Cancelled
BUN 2 L Cancelled
Creatinine 0.7
Glucose
Calcium
Total Bilirubin
AST
ALT
Alkaline Phosphatase
02/10/24 02/10/24 02/10/24
05:48 05:48 05:48
WBC
Hgb
Hct
Plt Count
Sodium
Potassium
Chloride
Carbon Dioxide
BUN
Creatinine Cancelled
Glucose 103 H Cancelled
Calcium 7.6 L Cancelled
Total Bilirubin 5.8 H
AST
ALT
Alkaline Phosphatase
02/10/24 02/10/24 02/10/24
05:48 05:48 05:48
WBC
Hgb
Hct
Plt Count
Sodium
Potassium
Chloride
Carbon Dioxide
BUN
Creatinine
Glucose
Calcium
Total Bilirubin Cancelled
AST 730 H* Cancelled
ALT 264 H Cancelled
Alkaline Phosphatase 131 H
02/10/24
05:48
WBC
Hgb
Hct
Plt Count
Sodium
Potassium
Chloride
Carbon Dioxide
BUN
Creatinine
Glucose
Calcium
Total Bilirubin
AST
ALT
Alkaline Phosphatase Cancelled
Vital Signs:
Vital Signs
Temp Pulse Resp BP Pulse Ox
98.8 F 73 18 128/76 98
02/10/24 16:45 02/10/24 16:45 02/10/24 16:45 02/10/24 16:45 02/10/24 16:45
I&O
02/09/24 02/10/24 02/11/24
06:59 06:59 06:59
Intake Total 120 / 120 380 / 380
Balance 120 / 120 380 / 380
[2024-02-10] MEDS: MAGNESIUM OXIDE 750 MG PO (20:57)
[2024-02-11] VITALS: BP 98/56
[2024-02-11 07:00] VITALS: BP 131/86
[2024-02-11 07:13] LABS: Magnesium 1.5 mg/dl (1.6-2.3)
[2024-02-11] MEDS: TOPROL XL 100 MG PO (08:41)
[2024-02-11] MEDS: MAGNESIUM OXIDE 750 MG PO (08:41)
[2024-02-11] MEDS: OMNICEF 300 MG PO (08:44)
[2024-02-11] MEDS: FOLVITE 1 MG PO (08:45)
[2024-02-11 10:02] LABS: Blood Urea Nitrogen 3 mg/dl (7-17); Carbon Dioxide 24 mmol/L (22-30); Chloride 101 mmol/L (98-107); Estimated Creatinine Clearance 89 ml/min; Glucose 94 mg/dl (70-99); Potassium 3.8 mmol/L (3.5-5.1); Sodium 136 mmol/L (135-145); eGFR > 60.00
--- NOTE | 2024-02-11 11:14 | W.PN.NEPH.PH ---
Today's Communication / Plan
-
mag
Assessment/Plan
-
IMP:
AMS, with hallucinations -TME
CHIOMA - RESOLVED
Hypomagnesemia
Possible splenic vein thrombosis in recent outpatient ultrasound
Peripheral neuropathy
UA positive for Amphetamines and THC
E. coli UTI
Transaminitis
Alcoholic liver disease-cirrhosis
Thrombocytopenia
Anemia
Hyponatremia-resolved
PLan:
replete Mag
follow lytes
hypomag likely from EtOH +/- PPI
follow lft
hypomag likely causing hypopara and hypocalcemia
-
-
Date of Service: February 11, 2024
CC / HPI / ROS
-
Chief Complaint:
Hypomagnesemia
History of Present Illness:
mg better at 1.5
BP stable
k normal
Review of Systems:
no cp or sob
feels well
Labs
-
Labs:
WBC 7.7 10^3/uL (4.8-10.8) 02/10/24 05:48
RBC 2.40 10^6/uL (4.20-5.40) L 02/10/24 05:48
Hgb 8.4 g/dL (12.0-16.0) L 02/10/24 05:48
Hct 23.9 % (37.0-47.0) L 02/10/24 05:48
Plt Count 76 10^3/uL (130-400) L 02/10/24 05:48
Sodium 136 mmol/L (135-145) 02/11/24 06:10
Potassium 3.8 mmol/L (3.5-5.1) 02/11/24 06:10
Chloride 101 mmol/L (98-107) 02/11/24 06:10
Carbon Dioxide 24 mmol/L (22-30) 02/11/24 06:10
BUN 3 mg/dl (7-17) L 02/11/24 06:10
Creatinine 0.7 mg/dL (0.6-1.0) 02/11/24 06:10
eGFR > 60.00 02/11/24 06:10
Glucose 94 mg/dl (70-99) 02/11/24 06:10
Calcium 8.0 mg/dl (8.4-10.2) L 02/11/24 06:10
Phosphorus Cancelled 02/06/24 21:08
Albumin 2.3 g/dl (3.5-5.0) L 02/10/24 05:48
Albumin Cancelled 02/10/24 05:48
Physical Exam
-
Vital Signs:
Vital Signs
Temp Pulse Resp BP Pulse Ox
97.9 F 78 16 131/86 96
02/11/24 07:00 02/11/24 07:00 02/11/24 07:00 02/11/24 07:00 02/11/24 07:00
Cardiovascular:: Regular rate and rhythm
Respiratory:: Bilateral: Coarse
Lung Excursion:: Normal
Abdomen:: Nontender and Soft
Bowel Sounds:: Normal
Extremity Edema:: None: Bilateral:
[2024-02-11] MEDS: MAGNESIUM SULFATE 50 IV (12:15)
--- NOTE | 2024-02-11 14:41 | W.PN.HOSP.TC ---
Today's Communication/Plan
-
Discharge today
Assessment / Plan
Assessment / Plan
Physical Exam
General: No Apparent Distress, Comfortable and Conversant
HEENT: Normocephalic, Moist mucous membranes
Respiratory: Clear
Cardiac: S1/S2 and Regular Rhythm
GI: Soft, Non Tender, Non Distended and Normal Bowel Sounds
Musculoskeletal: No Cyanosis, No Edema
Skin: Warm and Dry
Neuro: AAO x 3, No Motor Deficits, Nonfocal/grossly intact and Other (no tremor)
Psych: Calm

CT Abdomen/Pelvis (as per radiologist's report)
IMPRESSION: Interatrial septum is difficult to visualize, which can sometimes have with CT. Please correlate with any clinical signs or symptoms that would suggest atrial septal defect.
Heterogeneous fatty infiltration of the liver. Cirrhotic morphology and contour of the liver.
The main portal vein and its branches have relatively small caliber, but demonstrate contrast enhancement.
Prominent splenorenal varices within the left upper quadrant.
Large gastric fundal diverticulum.
Small to moderate amount of free pelvic fluid.

Assessment/Plan
IMPRESSION:The patient is a 58 year old female with PMH significant for alcohol use, HTN, psoriatic arthritis (not on meds), and HLD presents to the ED due to hallucinations and altered mental status. She arrives with her family, and was noted to
have 'called the police on 3 separate occasions for concern of robberies in her house. When police and family arrived to the house, no evidence of any type of robberies. Patient was also reporting that she was sleeping with 5 cats, has no cats at
home ' per ED provider note. No known psych history. She has had decreased oral intake over the past week per family. She lives alone. She said her last etOH drink was wine , 4 glasses, on Wednesday, and had drinks about a week prior to that. Her
sons mention that she has a history of not telling the truth about how much she is drinking. She also said she had an Adderall in the past week, that she takes them prn, and also marijuana occasionally. She denies any other drugs. She says her
vision has changed and she feels more far-sighted recently, that has improved with using reader glasses. She also has had increased ataxia over the past few weeks-1 month, and peripheral neuropathy with burning and pain b/l feet causing her to have
difficulty walking up the stairs.
Ammonia level less than 9. CT and US with evidence for severe fatty liver, and LFTs including total bilirubin are elevated. US shows portal vein thrombosis and stigmata of portal HTN.
ED txt:
NS IVF bolus 1 liter
#AMS, with hallucinations -- less likely to be hepatic encephalopathy, could be from UTI
#Acute Toxic Metabolic Encephalopathy - IMPROVED
-IVF, monitor, avoid nephrotoxic agents, consider Nephro cx pending repeat labs, repeat labs in am
-GI consult appreciated- rec to hold on MRCP at this time
-Alcohol withdrawal protocol
-Continue high dose IV Thiamine, and continue every 8 hours for 9 doses then re-evaluate
-Folic acid daily
-checked folate level (6.7), B-12 (greater than 1000), TSH (elevated at 6.26), syphilis test negative
-parham culture due to infection can precipitate HE- blood culture; urine culture (urine culture grew E. coli)
-Consulted psychiatry; appreciate their evaluation and recommendations
-Risperidone PRN for agitation
#CHIOMA - RESOLVED - Creat 2.0 (baseline 0.4-0.6)
-IVF, repeat labs , as per above
# Hypomagnesemia from PPI, Alcoholism and Poor PO intake
-Slowly improving
-Continue PO magnesium on discharge
-Consulted nephrology, who recommended: stopping PPI and replacing with IV Magnesium -- IV Magnesium given and PO Magnesium has been started
#Peripheral neuropathy
-B12 level is high
#UA positive for Amphetamines and THC, UA abnormal 2+ LE, 40-50 WBC, many bacteria, with suprapubic tenderness
#E. coli UTI (positive urine culture with suprapubic tenderness)
-she takes Adderall prn, uses marijuana occasionally
-UA culture showing E. coli, Rocephin given x2 doses, switched to Cefdinir 300 mg PO BID (4 more doses) based on sensitivities
#GB sludge, distended, no evidence for obstruction, no abdominal pain
-no evidence for stones, no imaging per GI as of yet, and continue to monitor
#NO portal Vein thrombosis proximal main portal vein
-On CT imaging, confirmed that there is no portal vein thrombosis
-STOPPED Lovenox 1 mg/kg Q12H
#Transaminitis- AST 505, ALT 138, AP 163, TB 6.1
-US abdomen hepatic fatty infiltration, severe on CT scan
# Alcoholic liver disease -alcohol cessation\\
# Likely Cirrhosis
# Concern for Acute Alcoholic Hepatitis
- Unable to give prednisolone in hospital because of UTI (I confirmed this with gastroenterology)
- Likely cirrhosis and will need outpatient follow-up
- Avoid hepatotoxins (discuss this with your primary care provider)
- Stop drinking alcohol and if relapse, then call aldie or crisis
- Closely follow-up with gastroenterology
#Thrombocytopenia Plt 77 (92 in August 2023 but normal prior to then in 2018)
-Appreciate hematology evaluation
-Follow-up with hematology outpatient
#Anemia Hgb 10.0 (12.7 in August 2023) with MCV 100
-B12, folate levels as above
#Hyponatremia 134
DVT proph-Lovenox
Full Code
On 02/07/24, I spoke to patient's son Logan, who would agree to any need for 302 or restraint if needed. I answered all of Logan's questions and concerns to satisfaction.
More than 30 minutes spent in discharge including
Final examination of the patient
Summarizing hospital stay
Instructions for continuing care to all relevant caregivers
Preparation of discharge records, prescriptions, and referral forms
Total time spent (in minutes): 35
Anticipated Discharge: Today
Subjective/Interval History
-
Date of Service: February 11, 2024
Patient was seen and examined. She denied any pain or any other complaints.
Objective Data
-
Labs:
Laboratory Results
02/11/24
06:10
Sodium 136
Potassium 3.8
Chloride 101
Carbon Dioxide 24
BUN 3 L
Creatinine 0.7
Glucose 94
Calcium 8.0 L
Vital Signs:
Vital Signs
Temp Pulse Resp BP Pulse Ox
97.9 F 78 16 131/86 96
02/11/24 07:00 02/11/24 07:00 02/11/24 07:00 02/11/24 07:00 02/11/24 07:00
I&O
02/10/24 02/11/24 02/12/24
06:59 06:59 06:59
Intake Total 380 / 380 500 / 500
Balance 380 / 380 500 / 500
[2024-02-11 15:00] VITALS: BP 98/65
[2024-02-11] MEDS: AFLURIA (36 mos+) 2024-2025 FORMULA 0.5 ML IM (17:27)
[2024-02-12 09:08] LABS: Intact PTH 29.2 pg/ml (13.6-85.8)
== END 2024-02-11 18:08 | disposition home or self-care (01) | DRG 682 ==
LOC: 3 WEST ACU 17:41
PROVIDERS: Nurse Practitioner Acute Care; Nurse Practitioner Adult Health; Nurse Practitioner Family; ADMITTING PHYSICIAN Internal Medicine; ATTENDING PHYSICIAN Hospitalist; CONSULT PHYSICIAN Internal Medicine; CONSULT PHYSICIAN Psychiatry & Neurology Psychiatry; EMERGENCY PHYSICIAN Student in an Organized Health Care Education/Training Program; FAMILY PHYSICIAN Nurse Practitioner Adult Health; OTHER PHYSICIAN Internal Medicine Hematology & Oncology
PROC: 3E02340 Introduction of Influenza Vaccine into Muscle, Percutaneous Approach (ICD-10-PCS; 2024-02-11)
DX: N17.9 Acute kidney failure, unspecified (principal); G92.8 Other toxic encephalopathy; N39.0 Urinary tract infection, site not specified; E87.1 Hypo-osmolality and hyponatremia; F10.139 Alcohol abuse with withdrawal, unspecified; K76.6 Portal hypertension; R44.3 Hallucinations, unspecified; K82.1 Hydrops of gallbladder; Q21.10 Atrial septal defect, unspecified; K70.10 Alcoholic hepatitis without ascites; I10 Essential (primary) hypertension; E78.00 Pure hypercholesterolemia, unspecified; Z60.2 Problems related to living alone; F32.A Depression, unspecified; F17.200 Nicotine dependence, unspecified, uncomplicated; K76.0 Fatty (change of) liver, not elsewhere classified; L40.50 Arthropathic psoriasis, unspecified; K74.60 Unspecified cirrhosis of liver; E87.6 Hypokalemia; E83.42 Hypomagnesemia; B96.20 Unspecified Escherichia coli [E. coli] as the cause of diseases classified elsewhere; G62.9 Polyneuropathy, unspecified; F12.90 Cannabis use, unspecified, uncomplicated; D69.6 Thrombocytopenia, unspecified; F15.90 Other stimulant use, unspecified, uncomplicated; D64.9 Anemia, unspecified; K31.4 Gastric diverticulum; D73.5 Infarction of spleen; I86.8 Varicose veins of other specified sites; R27.0 Ataxia, unspecified; K21.9 Gastro-esophageal reflux disease without esophagitis; Z23 Encounter for immunization
CPT/HCPCS: 70450; 74176; 74177; 76700; 80048; 80053; 80143; 80179; 80306; 80307; 81003; 81015; 82010; 82077; 82140; 82248; 82607; 82728; 82746; 82977; 83540; 83550; 83735; 83970; 84443; 85025; 85027; 85045; 85610; 85652; 85730; 86140; 86704; 86706; 86708; 86780; 86803; 87040; 87086; 87088; 87186; 87340; 90686; 93005; 97162; 97166; 99285; G0008; Q9967

== ENCOUNTER 2024-03-03 22:35 | Inpatient (IN) | payer BC, SELFPAY ==
[2024-03-03] VITALS (8 sets, daily range): BP systolic 82–118; BP diastolic 54–74; BMI 33.1
[2024-03-03 17:03] LABS: % Basophils 1.4 % (0-2); % Eosinophils 6.4 % (0-6); % Immature Granulocytes 0.3 % (0-0.5); % Neutrophils 54.9 % (42.2-75.2); Absolute Basophils 0.1 10^3/uL (0-0.2); Absolute Eosinophils 0.7 10^3/uL (0-0.7); Absolute Lymphocytes 3.1 10^3/uL (1.2-3.4); Absolute Monocytes 0.7 10^3/uL (0.1-0.6); Absolute Neutrophils 5.6 10^3/uL (1.4-6.5); Hematocrit 26.6 % (37.0-47.0); Mean Corp Hgb Conc. 33.8 g/dL (33.0-37.0); Mean Corpuscular Hgb 35.3 pg (27.0-31.0); Mean Corpuscular Volume 104.3 fL (81.0-99.0); Mean Platelet Volume 11.5 fL (7.4-10.4); Nucleated Red Blood Cells % 0 %; Platelet Count 147 10^3/uL (130-400); Red Blood Cell Count 2.55 10^6/uL (4.20-5.40); Red Cell Dist. Width 17.1 % (11.5-14.5); White Blood Cell Count 10.2 10^3/uL (4.8-10.8)
[2024-03-03 17:14] LABS: ALT (SGPT) 81 U/L (0-35); AST (SGOT) 196 U/L (14-36); Alkaline Phosphatase 150 U/L (38-126); Blood Urea Nitrogen 14 mg/dl (7-17); Calcium 8.8 mg/dl (8.4-10.2); Carbon Dioxide 22 mmol/L (22-30); Chloride 100 mmol/L (98-107); Glucose 117 mg/dl (70-99); Potassium 3.5 mmol/L (3.5-5.1); Sodium 136 mmol/L (135-145); Total Bilirubin 8.5 mg/dl (0.2-1.3); Total Protein 7.3 g/dl (6.3-8.2); eGFR 57.88
--- NOTE | 2024-03-03 19:34 | ED.GENMED ---
History of Present Illness
<JEROMY Jackson - Last Filed: 03/03/24 21:35>
General
Chief Complaint: Back Pain
Source: patient
Exam Limitations: none
Time Seen by Provider: 03/03/24 18:53
Nursing documentation reviewed up to this point in time: agreed with
History of Present Illness
History of Present Illness:
Patient is a 58-year-old with past medical history of alcohol abuse hyperlipidemia psoriatic arthritis hypertension presents to the ER for evaluation. She had a follow-up appointment with her family doctor today after blood work was drawn recently
and was instructed to come to the ER because of abnormal labs. She is not seen by a liver specialist. When she was seen here in January she was given the name of a liver specialist but they were not able to see her to this upcoming June.
She has had some abdominal discomfort and admits to feeling weak and intermittently confused recently but does not feel confused today. She does live alone however her mother lives close by and has been helping her.
She reports she has not had an alcoholic beverage in 3 months. Her mother has noticed that her skin color has changed to a more yellow color this week. Patient does present with jaundice however mother did not realize that patient's eyes were also
yellow.
Past History
<JEROMY Jackson - Last Filed: 03/03/24 21:35>
Past History
ED Past Medical History: HTN and Psychiatric (Depression)
ED Past Surgical History: None
Social History
Tobacco: Smoker
Alcohol: Daily
Personal:
Living: with family
Employment: Employed
Family History
Family History: Negative Early CAD or CAD
Review of Systems
<JEROMY Jackson - Last Filed: 03/03/24 21:35>
Review of Systems
Allergies reviewed?: Yes
All Other Systems: ROS reviewed and negative except as documented in HPI and ROS
Constitutional: Reports no symptoms
Respiratory: Reports no symptoms
Phy Exam
<JEROMY Jackson - Last Filed: 03/03/24 21:35>
General Physical Exam
General Presentation: no apparent distress
General age: appears stated age
General Skin: warm and dry
General Habitus: normal
General Mental: alert
General Hydration: appears well hydrated
Eye Exam
Eye Exam: PERRL, EOMI and other (Scleral icterus)
Eye Exam General: PERRL: bilateral and EOM intact: bilateral
Pupil Exam: Bilateral: round and reactive
Cardiovascular Exam
Cardiovascular Exam: regular rate/rhythm, no murmur and normal peripheral pulses
Pulmonary Exam
Pulmonary Exam: lungs clear and no respiratory distress
Gastrointestinal Exam
Gastrointestinal Exam: soft and other (distended questionable mild ascites )
Musculoskeletal Exam
Musculoskeletal Exam: full ROM
Skin Exam
Skin Exam: warm/dry and jaundice
Psychiatric Exam
Psychiatric Exam: normal mood/affect
Course
<JEROMY Jackson - Last Filed: 03/03/24 21:35>
Orders/Labs/Results
Orders:
Orders
03/03/24 16:51
Alcohol Urgent
Complete Blood Count/With Diff Urgent
Comprehensive Metabolic Panel Urgent
Direct Bilirubin Urgent
Comment: ADD ON
03/03/24 19:54
Add On- LAB Urgent
Tests Added?: direct bilirubin
03/03/24 20:12
Drug Screen, Urine [Urine Drug Abuse Screen] Urgent
Date Specimen was Collected: 03/03/24
Time Specimen was Collected: 19:49
UA Reflex to Culture [Urinalysis Reflex To Culture] Urgent
Date Specimen was Collected: 03/03/24
Time Specimen was Collected: 19:49
Urine Microscopic Reflex Cult Urgent
Urine Culture Urgent
ELODIA Source: U
Specimen Description:
Date Specimen was Collected: 03/03/24
Time Specimen was Collected: 19:49
03/03/24 20:45
US Abdomen Limited Urgent
Reason For Exam: abd distention ELEVATED LFT'S F/U FROM 02/05
03/03/24 20:51
CefTRIAXone [Rocephin] 1,000 mg IV NOW STA
03/03/24 20:56
Ammonia Urgent
PT/INR [Prothrombin Time] Urgent
Abnormal Lab Results
03/03/24 03/03/24 03/03/24
16:51 20:12 20:56
RBC 2.55 L 10^6/uL
(4.20-5.40)
Hgb 9.0 L g/dL
(12.0-16.0)
Hct 26.6 L %
(37.0-47.0)
MCV 104.3 H fL
(81.0-99.0)
MCH 35.3 H pg
(27.0-31.0)
RDW 17.1 H %
(11.5-14.5)
MPV 11.5 H fL
(7.4-10.4)
Absolute Monos (auto) 0.7 H 10^3/uL
(0.1-0.6)
Eosinophils % 6.4 H %
(0-6)
PT 22.8 H Sec
(11.4-14.6)
Creatinine 1.1 H mg/dL
(0.6-1.0)
Glucose 117 H mg/dl
(70-99)
Total Bilirubin 8.5 H mg/dl
(0.2-1.3)
Direct Bilirubin 5.6 H mg/dl
(0.0-0.4)
AST 196 H U/L
(14-36)
ALT 81 H U/L
(0-35)
Alkaline Phosphatase 150 H U/L
(38-126)
Ammonia 49 H umol/L
(9-30)
Albumin 3.0 L g/dl
(3.5-5.0)
Urine Ketones 1+ A
(Negative)
Ur Occult Blood Reflex 4+ A
(Negative)
Urine Nitrite (Reflex) Positive A
(Negative)
Urine Bilirubin 2+ A
(Negative)
Urine Urobilinogen 2+ A
(Neg - 1+)
Leukocyte Esterase Rfl 2+ A
(Negative)
Urine RBC 50-60 A /HPF
(0-2)
Urine WBC (Reflex) 26-30 A /HPF
(0-5)
Urine Bacteria (Reflex) Many A
(Negative)
U Marijuana (THC) Screen Positive H
(Negative)
03/03/24 16:51
03/03/24 16:51
Vital Signs
Initial and Last Documented VS:
Initial Vital Signs
Temp Pulse Resp BP Pulse Ox
97.6 F 64 16 118/74 98
03/03/24 16:42 03/03/24 16:42 03/03/24 16:42 03/03/24 16:42 03/03/24 16:42
Last Documented Vital Signs
Temp Pulse Resp BP Pulse Ox
97.6 F 64 16 95/66 98
03/03/24 16:42 03/03/24 16:42 03/03/24 16:42 03/03/24 19:00 03/03/24 19:00
Director Of Consumer Affairs consulted with Physician
Director Of Consumer Affairs consulted with physician?: Yes
Name of Physician Consulted: Jair
<Henrik Ram MD - Last Filed: 03/03/24 20:55>
Orders/Labs/Results
Orders:
Orders
03/03/24 16:51
Alcohol Urgent
Complete Blood Count/With Diff Urgent
Comprehensive Metabolic Panel Urgent
Direct Bilirubin Urgent
Comment: ADD ON
03/03/24 19:54
Add On- LAB Urgent
Tests Added?: direct bilirubin
03/03/24 20:12
Drug Screen, Urine [Urine Drug Abuse Screen] Urgent
Date Specimen was Collected: 03/03/24
Time Specimen was Collected: 19:49
UA Reflex to Culture [Urinalysis Reflex To Culture] Urgent
Date Specimen was Collected: 03/03/24
Time Specimen was Collected: 19:49
Urine Microscopic Reflex Cult Urgent
Urine Culture Urgent
ELODIA Source: U
Specimen Description:
Date Specimen was Collected: 03/03/24
Time Specimen was Collected: 19:49
03/03/24 20:45
US Abdomen Limited Urgent
Reason For Exam: abd distention ELEVATED LFT'S F/U FROM 02/05
03/03/24 20:51
CefTRIAXone [Rocephin] 1,000 mg IV NOW STA
03/03/24 20:56
Ammonia Urgent
PT/INR [Prothrombin Time] Urgent
Abnormal Lab Results
03/03/24 03/03/24 03/03/24
16:51 20:12 20:56
RBC 2.55 L 10^6/uL
(4.20-5.40)
Hgb 9.0 L g/dL
(12.0-16.0)
Hct 26.6 L %
(37.0-47.0)
MCV 104.3 H fL
(81.0-99.0)
MCH 35.3 H pg
(27.0-31.0)
RDW 17.1 H %
(11.5-14.5)
MPV 11.5 H fL
(7.4-10.4)
Absolute Monos (auto) 0.7 H 10^3/uL
(0.1-0.6)
Eosinophils % 6.4 H %
(0-6)
PT 22.8 H Sec
(11.4-14.6)
Creatinine 1.1 H mg/dL
(0.6-1.0)
Glucose 117 H mg/dl
(70-99)
Total Bilirubin 8.5 H mg/dl
(0.2-1.3)
Direct Bilirubin 5.6 H mg/dl
(0.0-0.4)
AST 196 H U/L
(14-36)
ALT 81 H U/L
(0-35)
Alkaline Phosphatase 150 H U/L
(38-126)
Ammonia 49 H umol/L
(9-30)
Albumin 3.0 L g/dl
(3.5-5.0)
Urine Ketones 1+ A
(Negative)
Ur Occult Blood Reflex 4+ A
(Negative)
Urine Nitrite (Reflex) Positive A
(Negative)
Urine Bilirubin 2+ A
(Negative)
Urine Urobilinogen 2+ A
(Neg - 1+)
Leukocyte Esterase Rfl 2+ A
(Negative)
Urine RBC 50-60 A /HPF
(0-2)
Urine WBC (Reflex) 26-30 A /HPF
(0-5)
Urine Bacteria (Reflex) Many A
(Negative)
U Marijuana (THC) Screen Positive H
(Negative)
03/03/24 16:51
03/03/24 16:51
Vital Signs
Initial and Last Documented VS:
Initial Vital Signs
Temp Pulse Resp BP Pulse Ox
97.6 F 64 16 118/74 98
03/03/24 16:42 03/03/24 16:42 03/03/24 16:42 03/03/24 16:42 03/03/24 16:42
Last Documented Vital Signs
Temp Pulse Resp BP Pulse Ox
97.6 F 64 16 95/66 98
03/03/24 16:42 03/03/24 16:42 03/03/24 16:42 03/03/24 19:00 03/03/24 19:00
<JEROMY Jackson - Last Filed: 03/03/24 21:35>
MDM/Problems Addressed
MDM/Problems Addressed:
Patient is a 58-year-old with history of liver cirrhosis presents for worsening lab studies done as an outpatient.
Patient was recently diagnosed with hepatic encephalopathy, cirrhosis during February 2020 for admission.(Patient was admitted February 05 and discharged February 10).
pt denies any fevers and is afebrile with a normal white count hemoglobin 9.0 which is at patient's baseline from recent labs in January; patient with normal potassium and sodium BUN 14 creatinine 1.1 bilirubin however elevated 8.5 with an elevated
direct bili 5.6 and elevated AST ALT and alk phos. Ammonia 49; INR 2.03
UA appears infected. Pt w/ recent uti during last admission.
Pt evaluated by DR Ram will order US.
Ck order rocephin for UTI. With jaundice,(worsening) increasing weakness component of confusion along with UTI will admit
Chronic conditions affecting care:
chronic alcohol abuse
<JEROMY Jackson - Last Filed: 03/03/24 21:35>
*Pulse Oximetry
Patient hypoxic: no
*Critical Care Note
Total Time (30-74mins, 75-104mins- exclusive of procedures): Not Applicable
ED Attending Note
<JEROMY Jackson - Last Filed: 03/03/24 21:35>
-
Portions of this chart may have been created with voice recognition software.� Occasional wrong word or��sound alike� substitutions may have occurred due to the inherent limitations of voice recognition software.
<Henrik Ram MD - Last Filed: 03/03/24 20:55>
ED Attending Note
Patient seen and examined by attending physician: Yes
I performed the substantive portion of visit, reviewed & personally made and approve the management plan that is documented in note by myself or ITZ.: Yes
ED Attending Note:
I have seen and evaluated the patient with a [id number] encounter. I have spoken to the [PA] and involved in the medical history, the physical exam, medical decision making.
Evaluation and management service: agree unless noted differently below.
Results interpretation: agree unless noted differently below.
58-year-old woman history of alcohol use presenting to the emergency department worsening outpatient blood work. Patient had LFTs completed outpatient that did show that it was worsening to her primary care doctor brought her in here. Patient does
state that she did seem jaundiced today. No fevers or chills. No abdominal pain. She is tolerating p.o. On my evaluation patient is resting comfortably. She does appear jaundiced. Abdomen does show some mild right upper quadrant tenderness.
Differential consists of choledocholithiasis cholecystitis cholangitis the less like. Could also be worsening cirrhosis or new onset liver failure. Blood work does show obstructive jaundice pattern. Will obtain ultrasound of the abdomen. She
also has a UTI. She also slowed response likely component of hepatic encephalopathy. Patient will need admission.
Discharge Plan
Departure
Patient Disposition: Admit
Date of Disposition: 03/03/24
Time of Disposition: 21:07
Admit to: Med/Surg
Admit to doctor: hospitalist
Presentation/result/management discussed w/ accepting MD/DO: Hospitalist
Patient with high blood pressure during this ER visit?: No
Condition: Fair
Covid-19: Not Applicable
Discharge Problem:
Jaundice, mild encephalopathy, UTI (urinary tract infection), Weakness
Prescriptions:
No Action
tizanidine 2 mg Tablet
2 mg PO HS
folic acid 1 mg Tablet
1 mg PO DAILY Qty: 30 0RF
magnesium oxide 500 mg magnesium Tablet
750 mg PO BID Qty: 60 1RF
metoprolol succinate 100 mg Tablet Extended Release 24 Hr
100 mg PO DAILY
Referrals:
Nichol Stokes CRNP [Family Provider] -
Interventions
Interventions:
*Risk Screen - Suicide Last Done: 03/03/24 16:46
*General Assessment Last Done: 03/03/24 18:56
*Neglect/Abuse Screening Last Done: 03/03/24 16:46
ED- Fall Risk Assessment Last Done: 03/03/24 18:56
*ED COVID-19 Vaccine History Last Done: 03/03/24 18:56
ED-Musculoskeletal Assessment Last Done: 03/03/24 18:56
Discharge Date and Time
Print Language: FRISIAN
[2024-03-03 20:21] LABS: Urine Albumin Trace (Neg - Trace); Urine Bilirubin 2+ (Negative); Urine Character Slightly Cloudy (Clear); Urine Color Yellow; Urine Glucose Negative (Negative); Urine Ketone 1+ (Negative); Urine Leukocyte 2+ (Negative); Urine Nitrite Positive (Negative); Urine Occult Blood 4+ (Negative); Urine Specific Gravity 1.025 (<1.030); Urine Urobilinogen 2+ (Neg - 1+)
[2024-03-03 20:25] LABS: Direct Bilirubin 5.6 mg/dl (0.0-0.4)
[2024-03-03 20:28] LABS: Urine Red Blood Cell 50-60 /HPF (0-2)
[2024-03-03 20:29] LABS: Urine Bacteria Many (Negative); Urine White Cell 26-30 /HPF (0-5)
[2024-03-03 20:32] LABS: Alcohol None Detected
[2024-03-03 20:34] LABS: Amphetamines Negative (Negative); Barbiturates Negative (Negative); Benzodiazepines Negative (Negative); Buprenorphine Negative (Negative); Cocaine Negative (Negative); Marijuana Positive (Negative); Methadone Negative (Negative); Methamphetamines Negative (Negative); Opiates Negative (Negative); Phencyclidine Negative (Negative); Tricyclic Antidepressants Negative (Negative)
[2024-03-03 21:15] LABS: INR 2.03; PT 22.8 Sec (11.4-14.6)
[2024-03-03 21:18] LABS: Ammonia 49 umol/L (9-30)
--- NOTE | 2024-03-03 21:55 | HPS.HSE ---
Family Physician
-
Family Physician: JEROMY Tilley
Chief Complaint
-
Abnormal Labs and Jaundice
History of Present Illness
Patient is a 58 y/o female past medical history of alcoholic cirrhosis who presents with abnormal labs. Patient had labs drawn in follow-up from her recent hospitalization. When her PCP received the results she referred to emergency department for
evaluation. Family notes patient's eyes have appears more yellow over the past week. Patient reports periods over confusion. She reports poor oral intake. She reports chronic abdominal distention and denies abdominal pain. She denies fevers.
Medical History
Past Medical History
Past Medical History: Reports Other
Additional Past Medical History:
Alcoholic Cirrhosis
Essential Hypertension
Hyperlipidemia
Psoriatic Arthritis
Past Surgical History: Reports Other
Additional Past Surgical History:
Right Arm ORIF
Bunionectomy
Social History
Tobacco: Smoker
Alcohol: Former
Family History
Family History: Not pertinent
Allergies / Home Medications
Allergies reflects when Allergies were last updated in [facility].
Home Medications with original date entered in [facility]
Allergy/Medication List:
Allergies
Allergy/AdvReac Type Severity Reaction Status Date / Time
No Known Allergies Allergy Unverified 02/06/24 12:36
Home Medications
tizanidine 2 mg tablet 2 mg PO HS Muscle Spasms 02/06/24
folic acid 1 mg tablet 1 mg PO DAILY #30 tabs 02/11/24
magnesium oxide 750 mg (1.5 x 500 mg magnesium) PO BID #60 tabs 02/11/24
metoprolol succinate 100 mg tablet,extended release 24 hr 100 mg PO DAILY 03/03/24
Review of Systems
-
A 12 point ROS was completed and negative except as noted: Yes
Constitutional: Denies Fever or Chills
Respiratory: Denies Cough or Trouble Breathing
Cardiac: Denies Chest Pain or Palpitations
Abdomen/GI: Reports See HPI
: Denies Dysuria
Physical Exam
Vital Signs
Vital Signs
Temp Pulse Resp BP Pulse Ox
97.6 F 64 16 95/66 98
03/03/24 16:42 03/03/24 16:42 03/03/24 16:42 03/03/24 19:00 03/03/24 19:00
Physical Exam
General: Comfortable and Conversant
HEENT: Other (Mucous membranes are slightly dry; Sclera are icteric)
Respiratory: Clear and Non Labored Respirations
Cardiac: S1/S2 and Regular Rhythm
GI: Soft, Non Tender and Distended
Musculoskeletal: No Clubbing, No Cyanosis and Other (+1 pitting edema bilateral lower extremities which patient reports has been chronic for past 2 years)
Skin: Warm, Dry and Jaundice
Neuro: Awake, Alert, Oriented and Nonfocal/grossly intact
Psych: Calm
Laboratory Results
-
03/03/24 16:51
03/03/24 16:51
Laboratory Results
PT 22.8 Sec (11.4-14.6) H 03/03/24 20:56
INR 2.03 03/03/24 20:56
Total Bilirubin 8.5 mg/dl (0.2-1.3) H 03/03/24 16:51
AST 196 U/L (14-36) H 03/03/24 16:51
ALT 81 U/L (0-35) H 03/03/24 16:51
Alkaline Phosphatase 150 U/L (38-126) H 03/03/24 16:51
Data Reviewed
-
Ultrasound: Report Reviewed by me
Lab Data: Labs Reviewed by me
Old Records: Reviewed
Impression/Plan
-
Decompensated Cirrhosis with Hepatic Encephalopathy and New Ascites
-Consult GI
-Consult IR for paracentesis
-Check Abd MRI with MRCP as CBD appears more dilated than previously
-Continue ceftriaxone to cover for possible SBP
-Start Lactulose
-Trend LFTs and INR
Acute Kidney Injury
-Give small amount of IVFs overnights
-Recheck Cr in AM
Essential Hypertension
-BP running on the low side therefore will hold metoprolol
DVT proph: SCDs
Code Status: Full Code
[2024-03-03] MEDS: ROCEPHIN 1000 MG IV (22:06)
[2024-03-03 22:41] LABS: Magnesium 1.7 mg/dl (1.6-2.3)
[2024-03-03] MEDS: DUPHALAC/CHRONULAC 20 GRAMS PO (22:46)
--- NOTE | 2024-03-03 23:11 | W.PN.UPDATE ---
Update Note
Progress Note Update
This is an addendum to the H&P written by Shu Luevano on 03/03/2024.� Patient seen and examined independently with PA.
58-year-old female past medical history of alcohol use disorder, alcoholic cirrhosis, hypertension, psoriatic arthritis, hyperlipidemia presenting to the emergency room for abnormal labs.� Patient recently having abdominal discomfort and weakness
and confusion but no confusion today.� She has become more jaundiced this week.� Denies alcohol in 1 month.
Labs show transaminitis improved from previously although bilirubin has increased.� Ammonia level 49 also increased from previously.� Also with CHIOMA.� INR stable.
Abdominal ultrasound shows mildly heterogeneous with increased echogenicity hepatic steatosis, moderate to large volume perihepatic free fluid.� Common bile duct during 1 cm previously 4 mm.� This is concerning for obstructive biliary lesion.
Patient has signs of hepatic encephalopathy, worsening liver failure without alcohol use in 1 month.� Will start lactulose.� Hold off on steroids at this time as patient did not drink alcohol in 1 month.� Due to increased CBD dilatation will check
MRCP.��IR for paracentesis if able.�GI consulted.� No urinary symptoms but continue ceftriaxone for UTI which will also cover SBP.� Gentle IV fluids for CHIOMA.
[2024-03-04] VITALS (7 sets, daily range): BP systolic 91–108; BP diastolic 56–74; BMI 32.4
[2024-03-04] MEDS: NSS 500 IV (00:58)
[2024-03-04] MEDS: MELATONIN 5 MG PO ×2 (01:01→21:33)
[2024-03-04 04:53] LABS: Ammonia 36 umol/L (9-30)
[2024-03-04 05:07] LABS: Hematocrit 20.4 % (37.0-47.0); Hemoglobin 7.1 g/dL (12.0-16.0); INR 2.23; Mean Corp Hgb Conc. 34.8 g/dL (33.0-37.0); Mean Corpuscular Hgb 35.5 pg (27.0-31.0); Mean Platelet Volume 11.6 fL (7.4-10.4); PT 24.5 Sec (11.4-14.6); Platelet Count 102 10^3/uL (130-400); Red Cell Dist. Width 16.8 % (11.5-14.5); White Blood Cell Count 9.5 10^3/uL (4.8-10.8)
[2024-03-04 05:13] LABS: ALT (SGPT) 62 U/L (0-35); AST (SGOT) 151 U/L (14-36); Albumin 2.1 g/dl (3.5-5.0); Alkaline Phosphatase 100 U/L (38-126); Blood Urea Nitrogen 13 mg/dl (7-17); Calcium 8.1 mg/dl (8.4-10.2); Carbon Dioxide 23 mmol/L (22-30); Chloride 101 mmol/L (98-107); Estimated Creatinine Clearance 80 ml/min; Glucose 142 mg/dl (70-99); Magnesium 1.6 mg/dl (1.6-2.3); Potassium 3.1 mmol/L (3.5-5.1); Sodium 134 mmol/L (135-145); Total Protein 5.5 g/dl (6.3-8.2); eGFR > 60.00
--- NOTE | 2024-03-04 05:25 | PTCARENOTE ---
Pt assisted with ambulation to BR. Urine noted to be reddish/orange. Pt stated she felt dizzy at that time. Critical hct called at 20.4. VS obtained 98/64, 65, 18, 98% RA, 97.8. Pt. returned back to bed safely, bed alarm in place. MEDICAL ART THERAPIST notified.
Awaiting for further instruction.
[2024-03-04 06:38] LABS: % Basophils 1.2 % (0-2); % Eosinophils 6.7 % (0-6); % Immature Granulocytes 0.2 % (0-0.5); % Lymphocytes 25.9 % (20.5-51.1); % Monocytes 9.9 % (1.7-9.3); % Neutrophils 56.1 % (42.2-75.2); Absolute Basophils 0.1 10^3/uL (0-0.2); Absolute Eosinophils 0.7 10^3/uL (0-0.7); Absolute Lymphocytes 2.7 10^3/uL (1.2-3.4); Absolute Neutrophils 5.9 10^3/uL (1.4-6.5); Hematocrit 21.3 % (37.0-47.0); Hemoglobin 7.6 g/dL (12.0-16.0); Mean Corp Hgb Conc. 35.7 g/dL (33.0-37.0); Mean Corpuscular Hgb 36.5 pg (27.0-31.0); Mean Corpuscular Volume 102.4 fL (81.0-99.0); Mean Platelet Volume 11.6 fL (7.4-10.4); Nucleated Red Blood Cells % 0 %; Platelet Count 102 10^3/uL (130-400); Red Blood Cell Count 2.08 10^6/uL (4.20-5.40); Red Cell Dist. Width 16.9 % (11.5-14.5); White Blood Cell Count 10.4 10^3/uL (4.8-10.8)
[2024-03-04] MEDS: DUPHALAC/CHRONULAC 20 GRAMS PO ×3 (08:56→21:29)
[2024-03-04] MEDS: FOLVITE 1 MG PO (08:56)
[2024-03-04] MEDS: MAGNESIUM OXIDE 750 MG PO ×2 (08:56→21:29)
--- NOTE | 2024-03-04 09:18 | W.PN.HOSP.TC ---
Today's Communication/Plan
-
Routine paracentesis
MRI abdomen
Continue lactulose
Follow-up urine culture
Continue empiric Rocephin
Assessment / Plan
Assessment / Plan
Abd US
Biliary sludge, however no sonographic findings suggestive of acute cholecystitis.
The liver is mildly heterogeneous with increased echogenicity, likely hepatic steatosis. There is new moderate/large volume perihepatic free fluid.
The common bile duct is dilated measuring 1.0 cm. Recommend correlation with labs for possible biliary obstruction.

1. Perihepatic ascites
-Patient denies of having any previous history of paracentesis
-No significant abdominal pain/fever
-Interventional surgery consulted for routine paracentesis
2. Alcoholic cirrhosis
Elevated Total billirubin
Thrombocytopenia
Coagulopathy
-Patient stated of being abstinent from alcohol use
-Child schmidt 12C based on the labs today
-f/u T jeremiah/inr/plt
-Patient supposed to follow-up with GI/deputy attorney general? Unsure
-Patient have dilated CBD of 1 cm on abdominal ultrasound, follow-up MRI abdomen pelvis has been ordered
-GI consulted for further help
3. History of hepatic encephalopathy
-Maintained on oral lactulose therapy
-Home medication does not have lactulose
-Patient have bradyphrenia. no asterixis.
-goal of 2-3 soft BM/day
4. UTI
-No dysuria/discomfort.
-UA showing moderate pyuria.
-Afebrile/no leukocytosis
-Being maintained on Rocephin to cover it simultaneously for SBP as well
5. Acute renal insufficiency
-Creatinine normalized with small IV fluid, discontinue further IV fluid
6. Marijuana use
-Patient urine drug screen positive for marijuana
7. Essential Hypertension
-BP running on the low side therefore will hold metoprolol
DVT proph: SCDs
Code Status: Full Code
Total time spent : 53 mins
Anticipated Discharge: 24 - 48 hours
Subjective/Interval History
-
Date of Service: March 04, 2024
resting comfortably in bed
denies abd pain/nausea/vomiting
no other issues
Objective Data
-
Labs:
Laboratory Results
03/04/24 03/04/24
04:35 06:02
WBC 9.5 10.4
Hgb 7.1 L D 7.6 L
Hct 20.4 L* 21.3 L
Plt Count 102 L D 102 L
PT 24.5 H
INR 2.23
Sodium 134 L
Potassium 3.1 L
Chloride 101
Carbon Dioxide 23
BUN 13
Creatinine 0.8
Glucose 142 H
Calcium 8.1 L
Total Bilirubin 6.0 H
AST 151 H
ALT 62 H
Alkaline Phosphatase 100
Vital Signs:
Vital Signs
Temp Pulse Resp BP Pulse Ox
97.5 F 68 16 107/69 94
03/04/24 07:50 03/04/24 07:50 03/04/24 07:50 03/04/24 07:50 03/04/24 07:50
Review of Systems
-
Respiratory: Reports No Symptoms
Cardiac: Reports No Symptoms
Abdomen/GI: Reports No Symptoms
Physical Exam
-
General: No Apparent Distress and Comfortable
HEENT: Negative Oxygen
Respiratory: Clear to Auscultation
Cardiac: Regular Rhythm and S1/S2; Negative Murmur or Rub
GI: Soft, Normal Bowel Sounds and Distended
Musculoskeletal: Edema, Right Lower Extrem and Edema, Left Lower Extrem
Neuro: Awake, Alert, Oriented, No Motor Deficits and Nonfocal/Grossly Intact
Psych: Calm
--- NOTE | 2024-03-04 09:34 | CON.GI ---
Consultation
-
Date/Time Consultation Requested: 03/04/24 0010
Date/Time Consultation Performed: 03/04/24 0940
Requesting Provider: Shu Luevano PA-C
Performing Provider: Dr. Jethro Guerrero / Lucinda Mcgovern PA-C
Reason for Consultation: elevated LFTs
Medical History
Chief Complaint / HPI
Chief Complaint: altered mental status
History of Present Illness:
This is a 58-year-old female with a past medical history of HTN, hyperlipidemia, psoriatic arthritis, alcohol use disorder, recently admitted 02/05 to 02/11/24 for hallucinations with concern for possible alcoholic hepatitis/cirrhosis, who was
advised by her PCP to return to the hospital for worsening outpatient labs. She denies abdominal pain but notes that her family told her she looked increasingly jaundiced. Patient states she has not had any alcohol since her last hospital admission.
She has had fewer hallucinations/delusions since being discharged from the hospital last month. She is currently AAOx3.
Labs reviewed: t bili 6.0, AST 151, ALT 62, alk phos 100. Ammonia 36. Serum albumin 2.1. INR 2.23. WBC 10.4, Hgb 7.6, platelets 102. Her liver function tests did improve slightly today compared to yesterday with downtrending of total bilirubin, ALT,
AST and alk phos. Lactulose was started for presumed possible hepatic encephalopathy. During her prior admission, it was felt that patient did not have HE; the hallucinations and mental status change were suspected to be secondary to UTI. She was
evaluated by Psychiatry at that time as well. She denies dysuria or urinary frequency but did note hematuria. Urinalysis is suspicious for UTI again now, urine culture pending. US of the abdomen is showing biliary sludge with common bile duct
dilated at 1cm. Fatty liver is noted with moderate/large volume perihepatic free fluid.
Past Medical History
Past Medical History: GERD, HTN, Hypercholesterolemia and Other (Psoriatic arthritis, alcohol use disorder, chronic lower extremity edema)
Past Surgical History: Other (Patient could not report surgical history)
Social History
Tobacco: Non-Smoker
Alcohol: Chronic Alcoholic
Drug: Marijuana
Living: Alone
Family History
Family History: Reviewed & Not Pertinent
Allergies / Home Medications
Allergy/AdvReac Type Severity Reaction Status Date / Time
No Known Allergies Allergy Unverified 02/06/24 12:36
�Medication �Instructions �Recorded
tizanidine 2 mg tablet 2 mg PO HS Muscle Spasms 02/06/24
folic acid 1 mg tablet 1 mg PO DAILY #30 tabs 02/11/24
magnesium oxide 750 mg (1.5 x 500 mg magnesium) PO 02/11/24
BID #60 tabs
metoprolol succinate 100 mg 100 mg PO DAILY 03/03/24
tablet,extended release 24 hr
Review of Systems
-
History Source: Patient
All other systems: A 12 pt ROS was Negative except as stated above in HPI
Vital Signs
Temp Pulse Resp BP Pulse Ox
97.5 F 68 16 107/69 94
03/04/24 07:50 03/04/24 07:50 03/04/24 07:50 03/04/24 07:50 03/04/24 07:50
Physical Exam
Exam
General: Well Developed, Well Nourished and No Apparent Distress
HEENT: Other (+scleral icterus)
Respiratory: Clear
Cardiac: Regular Rhythm
GI: Soft, Non Tender, Non Distended and Normal Bowel Sounds
Skin: Warm and Dry
Neuro: AO x 3 and Other (no asterixis)
Psych: Calm
Results
WBC 10.4 10^3/uL (4.8-10.8) 03/04/24 06:02
Hgb 7.6 g/dL (12.0-16.0) L 03/04/24 06:02
Hct 21.3 % (37.0-47.0) L 03/04/24 06:02
MCV 102.4 fL (81.0-99.0) H 03/04/24 06:02
Plt Count 102 10^3/uL (130-400) L 03/04/24 06:02
Absolute Neuts (auto) 5.9 10^3/uL (1.4-6.5) 03/04/24 06:02
PT 24.5 Sec (11.4-14.6) H 03/04/24 04:35
INR 2.23 03/04/24 04:35
Sodium 134 mmol/L (135-145) L 03/04/24 04:35
Potassium 3.1 mmol/L (3.5-5.1) L 03/04/24 04:35
Chloride 101 mmol/L (98-107) 03/04/24 04:35
Carbon Dioxide 23 mmol/L (22-30) 03/04/24 04:35
BUN 13 mg/dl (7-17) 03/04/24 04:35
Creatinine 0.8 mg/dL (0.6-1.0) 03/04/24 04:35
Calcium 8.1 mg/dl (8.4-10.2) L 03/04/24 04:35
Total Bilirubin 6.0 mg/dl (0.2-1.3) H 03/04/24 04:35
AST 151 U/L (14-36) H 03/04/24 04:35
ALT 62 U/L (0-35) H 03/04/24 04:35
Alkaline Phosphatase 100 U/L (38-126) 03/04/24 04:35
Diagnostic Image Results:
US Abdomen, 03/03/24:
-Biliary sludge, however no sonographic findings suggestive of acute cholecystitis.
-The liver is mildly heterogeneous with increased echogenicity, likely hepatic steatosis. There is new moderate/large volume perihepatic free fluid.
-The common bile duct is dilated measuring 1.0 cm. Recommend correlation with labs for possible biliary obstruction.
02/06/24 CT A/P w/o contrast: No acute pathology of the abdomen or pelvis identified. Severe hepatic fatty infiltration. Stable. Elongated gallbladder probably due to benign gallbladder hydrops. New. If concern for acute cholecystitis. Abdominal
ultrasound recommended.
02/06/24 US abdomen: Hepatic fatty infiltration. Large amount of gallbladder sludge. Distended gallbladder. No additional secondary findings to suggest acute cholecystitis. Clinical and laboratory correlation recommended. Proximal main portal vein
thrombosis. Associated hepatofugal flow in the distal main pulmonary vein. This can be seen with portal hypertension
CT Head: No acute intracranial abnormality noted. Moderate atrophy. New
02/01/24 CT A/P W/IV and oral:
1. No acute findings within the abdomen or pelvis.
2. Severe hepatic steatosis.
3. Subtle increased attenuation within the dependent portions of the gallbladder suggesting the presence of stones and/or sludge. No inflammatory changes.
4. Prominent diverticulum arising from the gastric fundus measuring 6.4 cm.
Prior GI Procedures:
EGD: none
Colonoscopy: 3-4 years ago per pt, no polyps (per patient)
Assessment / Plan
-
58-year-old female with a history of HTN, hyperlipidemia, psoriatic arthritis, alcohol use disorder, recently admitted 02/05 to 02/11/24 for hallucinations with concern for possible alcoholic hepatitis/cirrhosis, who was advised by her PCP to return
to the hospital for worsening outpatient labs. She denies abdominal pain but notes that her family told her she looked increasingly jaundiced. Patient states she has not had any alcohol since her last hospital admission. She has had fewer
hallucinations/delusions since being discharged from the hospital last month. She is currently AAOx3.
Labs reviewed: t bili 6.0, AST 151, ALT 62, alk phos 100. Ammonia 36. Serum albumin 2.1. INR 2.23. WBC 10.4, Hgb 7.6, platelets 102. Her liver function tests did improve slightly today compared to yesterday with downtrending of total bilirubin, ALT,
AST and alk phos. Lactulose was started for presumed possible hepatic encephalopathy. During her prior admission, it was felt that patient did not have HE; the hallucinations and mental status change were suspected to be secondary to UTI. She was
evaluated by Psychiatry at that time as well. She was not started on steroids during her last admission for alcoholic hepatitis due to the UTI. She denies dysuria or urinary frequency but did note hematuria. Urinalysis is suspicious for UTI again
now, urine culture pending. US of the abdomen is showing biliary sludge with common bile duct dilated at 1cm. Fatty liver is noted with moderate/large volume perihepatic free fluid. Patient denies any new medications, herbal supplements, and
adamantly asserts she has had no alcohol. Serum alcohol was not detected. UDS is positive for marijuana. She denies any other drug use. Prior hepatitis serologies were negative.
IMPRESSION / PLAN:
Alcohol Abuse disorder with concern for alcoholic hepatitis/cirrhosis
- pt reports she is currently not drinking, ETOH level not detected
- with recent hallucinations/change in mental status but doubt HE, suspect more likely caused by UTI
- ammonia level 36, no asterixis on exam, OK to discontinue lactulose
- MRI/MRCP to evaluate dilated CBD - rule out choledocholithiasis
- with new perihepatic fluid notes, paracentesis ordered
- MELD 3.0 = 26
- LFTs improved compared to yesterday; will continue to trend LFTs
- will need outpatient follow-up with Hepatology
UTI
- continue IV Rocephin
- urine culture pending
Other medical problems managed as per Hospitalist. We will follow.
-
-
Thank you for consultation and allowing me to participate in the patient's care. Please call the concrete pipe maker GI physician during the after hours with any questions or concerns.
[2024-03-04] MEDS: KCL 40 MEQ PO (10:09)
[2024-03-04] MEDS: MEPHYTON 5 MG PO (14:10)
[2024-03-04] MEDS: STERILE WATER FOR INJECTION 20 ML IV (21:34)
[2024-03-04] MEDS: ROCEPHIN 2000 MG IV (21:34)
[2024-03-05] VITALS (10 sets, daily range): BP systolic 74–113; BP diastolic 58–71; BMI 32.9
[2024-03-05 06:00] LABS: INR 2.14; PT 23.7 Sec (11.4-14.6)
[2024-03-05 06:02] LABS: Hematocrit 20.1 % (37.0-47.0); Hemoglobin 7.1 g/dL (12.0-16.0); Mean Corp Hgb Conc. 35.3 g/dL (33.0-37.0); Mean Corpuscular Hgb 37.2 pg (27.0-31.0); Mean Corpuscular Volume 105.2 fL (81.0-99.0); Mean Platelet Volume 11.6 fL (7.4-10.4); Platelet Count 94 10^3/uL (130-400); Red Blood Cell Count 1.91 10^6/uL (4.20-5.40); Red Cell Dist. Width 17.3 % (11.5-14.5); White Blood Cell Count 8.8 10^3/uL (4.8-10.8)
[2024-03-05 06:41] LABS: ALT (SGPT) 63 U/L (0-35); AST (SGOT) 146 U/L (14-36); Albumin 2.1 g/dl (3.5-5.0); Alkaline Phosphatase 115 U/L (38-126); Blood Urea Nitrogen 9 mg/dl (7-17); Calcium 8.3 mg/dl (8.4-10.2); Carbon Dioxide 23 mmol/L (22-30); Chloride 107 mmol/L (98-107); Estimated Creatinine Clearance 81 ml/min; Glucose 111 mg/dl (70-99); Potassium 3.4 mmol/L (3.5-5.1); Sodium 140 mmol/L (135-145); Total Bilirubin 5.5 mg/dl (0.2-1.3); Total Protein 5.6 g/dl (6.3-8.2); eGFR > 60.00
[2024-03-05] MEDS: FOLVITE 1 MG PO (07:56)
[2024-03-05] MEDS: DUPHALAC/CHRONULAC 20 GRAMS PO ×3 (07:56→20:51)
[2024-03-05] MEDS: MAGNESIUM OXIDE 750 MG PO ×2 (07:56→20:47)
--- NOTE | 2024-03-05 09:59 | W.PN.GI.CBS2 ---
Today's Communication / Plan
-
F/u peritoneal fluid studies after IR paracentesis. LFTs improving would continue to hold steroids. Keep NPO at OR for EGD tomorrow given drop in Hgb and EV screening. Rest of care as outlined below.
Assessment / Plan
-
Ms Garcia is a 58 y.o female with prior history of EtOH abuse with alcoholic-associated liver disease and previous admission due to concern for hallucinations and EtOH-hepatitis superimposed on cirrhosis (did not receive prednisolone due to UTI) who
presented with worsening LFTs on outpatient labs. Found to have LFTs with AST 196, ALT 81, ALP 150, and T Bili 8.5 with D Bili 5.6 along with labs corresponding to a MELD 3.0 of 26. Of note, previous LFTs back on 02/10/2024 with AST 730, ALT 264,
ALP 131, and T Bili 5.8 at time of discharge during her last admission. Recent CBC also with evidence of thrombocytopenia and INR 2.03 further supporting synthetic dysfunction in setting of acute on chronic liver disease with likely cirrhosis.
Reviewed previous documentation from her prior admission and was not felt to have HE and possibly hallucinations and/or toxic-metabolic encephalopathy in setting of UTI. Psychiatry was also consulted at that time. Regardless, denies any mentation or
increased confusion or other abdominal pain/discomfort. Does note worsening jaundice for which her family has noted as well over the past few weeks. Otherwise, she denies any RUQ discomfort or abdominal pain. Imaging on admission with Abdominal US
revealing biliary sludge within GB but without findings of cholecystitis along with mild hepatomegaly with increased echogenicity, felt to represent steatosis along with moderate/large volume ascites. Additionally, CBD dilated to 1.0 cm concerning
for possible obstruction without any evidence of choledocholithiasis. Etiology seems most consistent with acute on chronic liver disease in setting of prior EtOH abuse with EtOH hepatitis with portal HTN with likely superimposed cirrhosis. She has
been abstaining from alcohol for one month.
#EtOH Hepatitis w/ #Significant Portal HTN
#Chronic Liver Disease suspicious for superimposed cirrhosis
#Splenorenal Shunt
- MRI/MRCP 03/04/2024 with findings of likely chronic liver disease with moderate perihepatic and perisplenic free fluid and small volume ascites within the lower quadrants. There is evidence of portal hypertension with numerous dilated varicosities
within the left upper quadrant consistent with splenorenal shunt. The gallbladder is mildly distended with biliary sludge. There is mild wall thickening although this is likely sequelae of chronic liver disease. No evidence of choledocholithiasis.
The common bile duct measures 6 mm.
- LFTs improving with down-trending T Bili
- Hgb now 7.1, ordered 1 uPRBC no signs of overt GI bleeding
Recommendations:
- 2g Na+ restricted regular diet, keep NPO at MN
- Trend daily MELD 3.0 labs- CMP and INR
- Continue Vitamin K challenge for 3 days if component of malnutrition
- No role for steroids and would continue to hold given UTI
- On IV Ceftriaxone for UTI
- Plan for both diagnostic and therapeutic paracentesis with IR later today
- Please send paracentesis studies to calculate SAAG (total protein, albumin) along with ruling out SBP (cell count with differential, peritoneal fluid culture, etc)
- Continue lactulose while inpatient given likely HE and evidence of splenorenal shunt as seen on MRI/MRCP
- F/u post-transfusion CBC after 1 uPRBC
- Plan for EGD tomorrow, for further evaluation given drop in Hgb and for EV screening given significant collateralization and portal HTN as seen on recent MRI
- Avoidance of all NSAIDs
- Agree with Folic Acid along with MVI
- Encourage ongoing EtOH cessation
Discussed with primary internal medicine team this AM.
GI team will continue to follow.
Subjective
Subjective
Date of Service: March 05, 2024
- MRI/MRCP 03/04/2024 with findings of likely chronic liver disease with moderate perihepatic and perisplenic free fluid and small volume ascites within the lower quadrants. There is evidence of portal hypertension with numerous dilated varicosities
within the left upper quadrant consistent with splenorenal shunt. The gallbladder is mildly distended with biliary sludge. There is mild wall thickening although this is likely sequelae of chronic liver disease. No evidence of choledocholithiasis.
The common bile duct measures 6 mm.
- LFTs improving with down-trending T Bili
- Hgb now 7.1, ordered 1 uPRBC no signs of overt GI bleeding
Feeling well, eating breakfast this AM. Denies any abdominal pain or nausea/vomiting. No other fevers or chills. Reports feeling better and wanting to go home. Ordered 1 uPRBC this AM given drop in Hgb. Still planning for IR guided paracentesis this
AM. Remains on IV abx given UTI.
Objective
Data Reviewed
Laboratory Data:
Laboratory Results
03/05/24 05:10
03/05/24 05:10
Laboratory Results
PT 23.7 Sec (11.4-14.6) H 03/05/24 05:10
INR 2.14 03/05/24 05:10
Magnesium 1.6 mg/dl (1.6-2.3) 03/04/24 04:35
Total Bilirubin 5.5 mg/dl (0.2-1.3) H 03/05/24 05:10
AST 146 U/L (14-36) H 03/05/24 05:10
ALT 63 U/L (0-35) H 03/05/24 05:10
Alkaline Phosphatase 115 U/L (38-126) 03/05/24 05:10
Vital Signs and I&O:
Vital Signs
Temp Pulse Resp BP Pulse Ox
98.3 F 82 16 105/63 100
03/05/24 07:00 03/05/24 07:00 03/05/24 07:00 03/05/24 07:00 03/05/24 07:00
I&O
03/04/24 03/05/24 03/06/24
07:59 06:59 06:59
Intake Total
Balance
Physical Exam
Physical Exam
HEENT: Moist mucous membranes and Other (Scleral icterus)
Cardiology: Normal Sinus Rhythm
Pulmonary: Clear and Other (Normal WOB on room air)
GI: Soft, Non Distended and Non Tender
Extremities: No Edema
Neuro: Non Focal and Other (AAOx3; no asterixis)
--- NOTE | 2024-03-05 10:08 | CM ---
Met with patient at bedside; initial assessment completed
Pharmacy verified: [facility] @ [id number] [facility], [place], [place]
Patient lives alone in an apartment; 1st floor; no steps; bath has tub w/shower
PLOF: independent with ADLs, recently using a Cane during ambulation; drives but has not driven in the past 3 weeks
Reported she spends the day at her parents home; they are in their 80's; she assists with their care
NO SNF or Home Health utilization history
Parents will transport her home
Scheduled for Paracentesis and blood transfusion today
PT assessment pending
Plan: patient wants to go home when cleared for discharge
--- NOTE | 2024-03-05 10:50 | W.PN.UPDATE ---
Update Note
Progress Note Update
- Paracentesis completed - majority of fluid in the RUQ. 850 mL removed. Clear, yellow.
[2024-03-05 11:13] LABS: Body Fluid WBC 92 /CUMM
[2024-03-05 11:16] LABS: Body Fluid Second Tech CMB
[2024-03-05 11:25] LABS: Body Fluid Amylase < 30 U/L; Body Fluid LDH < 90 U/L; Body Fluid Protein < 2.0 g/dl
--- NOTE | 2024-03-05 14:53 | W.PN.HOSP.TC ---
Today's Communication/Plan
-
for EGD tomorrow
1 U PRBC today
start empiric protonix
f/u ascites fluid test
Assessment / Plan
Assessment / Plan
Abd US
Biliary sludge, however no sonographic findings suggestive of acute cholecystitis.
The liver is mildly heterogeneous with increased echogenicity, likely hepatic steatosis. There is new moderate/large volume perihepatic free fluid.
The common bile duct is dilated measuring 1.0 cm. Recommend correlation with labs for possible biliary obstruction.
MR abd
Findings of likely chronic liver disease with moderate perihepatic and perisplenic free fluid and small volume ascites within the lower quadrants. There is evidence of portal hypertension with numerous dilated varicosities within the left upper
quadrant consistent with splenorenal shunt.
The gallbladder is mildly distended with biliary sludge. There is mild wall thickening although this is likely sequelae of chronic liver disease. No evidence of choledocholithiasis. The common bile duct measures 6 mm.
Small left and trace right pleural effusions with adjacent atelectasis.

1. Perihepatic ascites
-Patient denies of having any previous history of paracentesis
-No significant abdominal pain/fever
-S/p drainage of 850 mL acetic fluid. Fluid studies negative for SBP
2. Alcoholic cirrhosis
Elevated Total bilirubin
Thrombocytopenia
Coagulopathy
-Patient stated of being abstinent from alcohol use
-[place] 12C based on the labs today
-f/u T bilirubin/inr/plt
-Patient supposed to follow-up with GI/it application administrator?
-Patient have dilated CBD of 1 cm on abdominal ultrasound, f/u MRI abd neg for acute abnormalities
3. Chronic macrocytic anemia
-No overt blood loss. Check stool for occult blood
-Getting 1 unit of blood transfusion
-GI planning for patient to take to EGD tomorrow
-Maintain on empiric Protonix 40 mg/d
4. History of hepatic encephalopathy
-Maintained on oral lactulose therapy
-Home medication does not have lactulose
-Patient have bradyphrenia. no asterixis.
-goal of 2-3 soft BM/day
5. UTI
-No dysuria/discomfort.
-UA showing moderate pyuria.
-Afebrile/no leukocytosis
-Being maintained on Rocephin to cover it simultaneously for SBP as well
6. Acute renal insufficiency
-Improved
6. Marijuana use
-Patient urine drug screen positive for marijuana
7. Essential Hypertension
-BP running on the low side therefore will hold metoprolol
DVT proph: SCDs
Code Status: Full Code
Total time spent 53-minute
Anticipated Discharge: 24 - 48 hours
Subjective/Interval History
-
Date of Service: March 05, 2024
Denies of any abdominal pain/nausea vomiting
having 2-3 BM yesterday
no other issues
Objective Data
-
Labs:
Laboratory Results
03/05/24
05:10
WBC 8.8
Hgb 7.1 L
Hct 20.1 L*
Plt Count 94 L
PT 23.7 H
INR 2.14
Sodium 140
Potassium 3.4 L
Chloride 107
Carbon Dioxide 23
BUN 9
Creatinine 0.8
Glucose 111 H
Calcium 8.3 L
Total Bilirubin 5.5 H
AST 146 H
ALT 63 H
Alkaline Phosphatase 115
Vital Signs:
Vital Signs
Temp Pulse Resp BP Pulse Ox
98.5 F 77 18 105/71 97
03/05/24 14:32 03/05/24 14:32 03/05/24 14:32 03/05/24 14:32 03/05/24 14:32
I&O
03/04/24 03/05/24 03/06/24
07:59 06:59 06:59
Intake Total 250 / 250
Balance 250 / 250
Review of Systems
-
Respiratory: Reports No Symptoms
Cardiac: Reports No Symptoms
Abdomen/GI: Reports No Symptoms
Physical Exam
-
General: No Apparent Distress and Comfortable
HEENT: Negative Oxygen
Respiratory: Clear to Auscultation
Cardiac: Regular Rhythm and S1/S2; Negative Murmur or Rub
GI: Soft, Normal Bowel Sounds and Distended
Musculoskeletal: Edema, Right Lower Extrem and Edema, Left Lower Extrem
Neuro: Awake, Alert, Oriented, No Motor Deficits and Nonfocal/Grossly Intact
Psych: Calm
[2024-03-05] MEDS: PROTONIX 40 MG PO (15:24)
[2024-03-05] MEDS: MELATONIN 5 MG PO (20:47)
[2024-03-05] MEDS: STERILE WATER FOR INJECTION 20 ML IV (20:48)
[2024-03-05] MEDS: ROCEPHIN 2000 MG IV (20:48)
[2024-03-06] VITALS (11 sets, daily range): BP systolic 15–138; BP diastolic 61–84; BMI 32.5
[2024-03-06 08:33] LABS: INR 2.15; PT 23.9 Sec (11.4-14.6)
[2024-03-06 08:36] LABS: Hematocrit 25.4 % (37.0-47.0); Hemoglobin 8.7 g/dL (12.0-16.0); Mean Corp Hgb Conc. 34.3 g/dL (33.0-37.0); Mean Corpuscular Hgb 34.4 pg (27.0-31.0); Mean Corpuscular Volume 100.4 fL (81.0-99.0); Mean Platelet Volume 11.7 fL (7.4-10.4); Platelet Count 107 10^3/uL (130-400); Red Blood Cell Count 2.53 10^6/uL (4.20-5.40); Red Cell Dist. Width 20.3 % (11.5-14.5); White Blood Cell Count 8.9 10^3/uL (4.8-10.8)
[2024-03-06] MEDS: PROTONIX 40 MG PO (08:39)
[2024-03-06] MEDS: FOLVITE 1 MG PO (08:39)
[2024-03-06] MEDS: DUPHALAC/CHRONULAC 20 GRAMS PO ×3 (08:39→22:29)
[2024-03-06] MEDS: MAGNESIUM OXIDE 750 MG PO ×2 (08:39→20:10)
[2024-03-06 09:01] LABS: ALT (SGPT) 68 U/L (0-35); AST (SGOT) 153 U/L (14-36); Albumin 2.3 g/dl (3.5-5.0); Alkaline Phosphatase 109 U/L (38-126); Blood Urea Nitrogen 7 mg/dl (7-17); Calcium 8.4 mg/dl (8.4-10.2); Carbon Dioxide 25 mmol/L (22-30); Chloride 107 mmol/L (98-107); Estimated Creatinine Clearance 92 ml/min; Glucose 100 mg/dl (70-99); Potassium 3.5 mmol/L (3.5-5.1); Sodium 142 mmol/L (135-145); Total Bilirubin 7.5 mg/dl (0.2-1.3); Total Protein 6.1 g/dl (6.3-8.2); eGFR > 60.00
--- NOTE | 2024-03-06 11:44 | SUR.PHASEI ---
report to Daren WALDEN, patient awake and alert, vss, confused to day of week , admits to eating breakfast this am. IV fluids running slowly.
--- NOTE | 2024-03-06 11:50 | SUR.PHASEI ---
discharge to 4th floor tele - on monitor - report to Daren. Awake and alert - but states ' I am very forgetful'. vss, no pain or nausea. Transport but transport team.
--- NOTE | 2024-03-06 13:00 | W.PN.HOSP.TC ---
Today's Communication/Plan
-
Monitor vital signs see plan
Monitor hemoglobin
Monitor volume status
Continue with lactulose
PPI
Assessment / Plan
Assessment / Plan
Abd US
Biliary sludge, however no sonographic findings suggestive of acute cholecystitis.
The liver is mildly heterogeneous with increased echogenicity, likely hepatic steatosis. There is new moderate/large volume perihepatic free fluid.
The common bile duct is dilated measuring 1.0 cm. Recommend correlation with labs for possible biliary obstruction.
MR abd
Findings of likely chronic liver disease with moderate perihepatic and perisplenic free fluid and small volume ascites within the lower quadrants. There is evidence of portal hypertension with numerous dilated varicosities within the left upper
quadrant consistent with splenorenal shunt.
The gallbladder is mildly distended with biliary sludge. There is mild wall thickening although this is likely sequelae of chronic liver disease. No evidence of choledocholithiasis. The common bile duct measures 6 mm.
Small left and trace right pleural effusions with adjacent atelectasis.

Perihepatic ascites
-Patient denies of having any previous history of paracentesis
-No significant abdominal pain/fever
-S/p drainage of 850 mL acetic fluid. Fluid studies negative for SBP
Alcoholic cirrhosis
Elevated Total bilirubin
Thrombocytopenia
Coagulopathy
-Patient stated of being abstinent from alcohol use
-[place] 12C based on the labs today
-f/u T bilirubin/inr/plt
-Patient supposed to follow-up with GI/bead wire taper?
-Patient have dilated CBD of 1 cm on abdominal ultrasound, f/u MRI abd neg for acute abnormalities
Status post EGD 03/06 with mild varices, no banding. Patient will need to follow-up with hematology outpatient
Chronic macrocytic anemia
-No overt blood loss
S/p blood transfusion
EGD noted 03/06
-Maintain on empiric Protonix 40 mg/d
History of hepatic encephalopathy
-Maintained on oral lactulose therapy
-Home medication does not have lactulose
-Patient have bradyphrenia. no asterixis.
-goal of 2-3 soft BM/day
UTI
-No dysuria/discomfort.
-UA showing moderate pyuria.
-Afebrile/no leukocytosis
-Being maintained on Rocephin to cover it simultaneously for SBP as well
Acute renal insufficiency
-Improved
Marijuana use
-Patient urine drug screen positive for marijuana
Essential Hypertension
-BP running on the low side therefore will hold metoprolol
DVT proph: SCDs
Code Status: Full Code
I spent a total of 52 minutes with the patient or on the floor. More than 50% of this time involved counseling and coordination of care.
General: No Apparent Distress and Comfortable
HEENT: Negative Oxygen
Respiratory: Clear to Auscultation
Cardiac: Regular Rhythm and S1/S2; Negative Murmur or Rub
GI: Soft, Normal Bowel Sounds and Distended
Musculoskeletal: Edema, Right Lower Extrem and Edema, Left Lower Extrem
Neuro: Awake, Alert, Oriented, No Motor Deficits and Nonfocal/Grossly Intact
Psych: Calm
Anticipated Discharge: Within 24 hours
Subjective/Interval History
-
Date of Service: March 06, 2024
denies pain
Objective Data
-
Labs:
Laboratory Results
03/06/24
07:32
WBC 8.9
Hgb 8.7 L D
Hct 25.4 L
Plt Count 107 L
PT 23.9 H
INR 2.15
Sodium 142
Potassium 3.5
Chloride 107
Carbon Dioxide 25
BUN 7
Creatinine 0.7
Glucose 100 H
Calcium 8.4
Total Bilirubin 7.5 H
AST 153 H
ALT 68 H
Alkaline Phosphatase 109
Vital Signs:
Vital Signs
Temp Pulse Resp BP Pulse Ox
97.8 F 84 18 130/83 97
03/06/24 12:00 03/06/24 12:00 03/06/24 12:00 03/06/24 12:00 03/06/24 12:00
I&O
03/05/24 03/06/24 03/07/24
06:59 06:59 06:59
Intake Total 490 / 490
Balance 490 / 490
--- NOTE | 2024-03-06 13:22 | CM ---
Chart reviewed and plan is to home when stable.
Plan; Home at discharge.
--- NOTE | 2024-03-06 15:05 | PTOTSP ---
Patient admitted due to decompensated liver cirrhosis. Attempted to see patient for PT evaluation, sleeping but able to be woken. Patient declined PT evaluation, denied issues with her walking or mobility. RN confirmed the patient ambulated without
difficulty when going for a test. Patient agreeable to PT signing off and is aware our services are available if needed. Discussed with RN.
[2024-03-06] MEDS: STERILE WATER FOR INJECTION 20 ML IV (22:30)
[2024-03-06] MEDS: MELATONIN 5 MG PO (22:30)
[2024-03-06] MEDS: ROCEPHIN 2000 MG IV (22:30)
[2024-03-07 03:11] VITALS: BP 116/72
[2024-03-07 06:00] VITALS: BMI 32.4
[2024-03-07 07:52] VITALS: BP 110/69
[2024-03-07] MEDS: PROTONIX 40 MG PO (08:27)
[2024-03-07] MEDS: FOLVITE 1 MG PO (08:27)
[2024-03-07] MEDS: DUPHALAC/CHRONULAC 20 GRAMS PO (08:27)
[2024-03-07] MEDS: MAGNESIUM OXIDE 750 MG PO (08:32)
[2024-03-07 08:37] LABS: INR 2.33; PT 25.5 Sec (11.4-14.6)
[2024-03-07 08:45] LABS: % Basophils 1.2 % (0-2); % Immature Granulocytes 0.3 % (0-0.5); % Lymphocytes 29.4 % (20.5-51.1); % Monocytes 10.9 % (1.7-9.3); % Neutrophils 51.2 % (42.2-75.2); Absolute Basophils 0.1 10^3/uL (0-0.2); Absolute Eosinophils 0.7 10^3/uL (0-0.7); Absolute Lymphocytes 2.8 10^3/uL (1.2-3.4); Absolute Monocytes 1.1 10^3/uL (0.1-0.6); Absolute Neutrophils 4.9 10^3/uL (1.4-6.5); Hematocrit 24.8 % (37.0-47.0); Hemoglobin 8.6 g/dL (12.0-16.0); Mean Corp Hgb Conc. 34.7 g/dL (33.0-37.0); Mean Corpuscular Hgb 34.8 pg (27.0-31.0); Mean Corpuscular Volume 100.4 fL (81.0-99.0); Mean Platelet Volume 11.5 fL (7.4-10.4); Nucleated Red Blood Cells % 0 %; Platelet Count 104 10^3/uL (130-400); Red Blood Cell Count 2.47 10^6/uL (4.20-5.40); White Blood Cell Count 9.7 10^3/uL (4.8-10.8)
[2024-03-07 09:05] LABS: ALT (SGPT) 64 U/L (0-35); AST (SGOT) 133 U/L (14-36); Albumin 2.2 g/dl (3.5-5.0); Alkaline Phosphatase 103 U/L (38-126); Blood Urea Nitrogen 7 mg/dl (7-17); Calcium 8.3 mg/dl (8.4-10.2); Carbon Dioxide 24 mmol/L (22-30); Chloride 106 mmol/L (98-107); Estimated Creatinine Clearance 92 ml/min; Glucose 121 mg/dl (70-99); Potassium 3.3 mmol/L (3.5-5.1); Sodium 140 mmol/L (135-145); Total Bilirubin 6.5 mg/dl (0.2-1.3); Total Protein 5.8 g/dl (6.3-8.2); eGFR > 60.00
--- NOTE | 2024-03-07 09:05 | W.PN.GI.CBS2 ---
Addendum entered and electronically signed by Jethro Guerrero DO 03/07/24 14:52:
I saw and examined the patient.
The ENTERTAINMENT REPORTER's note was reviewed and I agree with the note.
Comment: No role for steroids given UTI and out-of window > 1 month with improving numbers. Needs very close follow-up with an OLT center given her EtOH Hep with significant portal HTN and likely superimposed cirrhosis. Continue lactulose given her
HE and splenorenal shunt seen on prior MRI. Needs repeat EGD in one year. We have provided her several names and numbers for follow-up. She also has follow-up with Dr. Levine as well. Agree with rest of recommendations as detailed below.
Original Note:
Today's Communication / Plan
-
as per plan
Assessment / Plan
-
Ms Garcia is a 58 y.o female with prior history of EtOH abuse with alcoholic-associated liver disease and previous admission due to concern for hallucinations and EtOH-hepatitis superimposed on cirrhosis (did not receive prednisolone due to UTI) who
presented with worsening LFTs on outpatient labs. Found to have LFTs with AST 196, ALT 81, ALP 150, and T Bili 8.5 with D Bili 5.6 along with labs corresponding to a MELD 3.0 of 26. Of note, previous LFTs back on 02/10/2024 with AST 730, ALT 264,
ALP 131, and T Bili 5.8 at time of discharge during her last admission. Recent CBC also with evidence of thrombocytopenia and INR 2.03 further supporting synthetic dysfunction in setting of acute on chronic liver disease with likely cirrhosis.
Reviewed previous documentation from her prior admission and was not felt to have HE and possibly hallucinations and/or toxic-metabolic encephalopathy in setting of UTI. Psychiatry was also consulted at that time. Regardless, denies any mentation or
increased confusion or other abdominal pain/discomfort. Does note worsening jaundice for which her family has noted as well over the past few weeks. Otherwise, she denies any RUQ discomfort or abdominal pain. Imaging on admission with Abdominal US
revealing biliary sludge within GB but without findings of cholecystitis along with mild hepatomegaly with increased echogenicity, felt to represent steatosis along with moderate/large volume ascites. Additionally, CBD dilated to 1.0 cm concerning
for possible obstruction without any evidence of choledocholithiasis. Etiology seems most consistent with acute on chronic liver disease in setting of prior EtOH abuse with EtOH hepatitis with portal HTN with likely superimposed cirrhosis. She has
been abstaining from alcohol for one month.
#EtOH Hepatitis w/ #Significant Portal HTN
#Chronic Liver Disease suspicious for superimposed cirrhosis
#Splenorenal Shunt
- MRI/MRCP 03/04/2024 with findings of likely chronic liver disease with moderate perihepatic and perisplenic free fluid and small volume ascites within the lower quadrants. There is evidence of portal hypertension with numerous dilated varicosities
within the left upper quadrant consistent with splenorenal shunt. The gallbladder is mildly distended with biliary sludge. There is mild wall thickening although this is likely sequelae of chronic liver disease. No evidence of choledocholithiasis.
The common bile duct measures 6 mm.
- LFTs improving with down-trending T Bili
- Hgb now 8.6, after 1 uPRBC no signs of overt GI bleeding->
-EGD 03/06/24 - Normal proximal esophagus and mid esophagus.
- Grade I and small (< 5 mm) esophageal varices which
completely flattened with insufflation. No banding was
performed.
- Z-line variable, 40 cm from the incisors.
- Medium-sized paraesophageal hernia with retained
food.
- A medium amount of food (residue) in the stomach in
the fundus and antrum. Suspicious for delayed emptying
- Moderate portal hypertensive gastropathy.
- Otherwise, grossly normal stomach on direct and
retroflexion views without any visualized gastric
varices although the exam was limited due to amount of
food in stomach
- Small amount of retained food in the duodenum.
Otherwise, normal duodenum without any duodenal varices
- The examination was otherwise normal.
- No specimens collected.
Recommendations:
- 2g Na+ restricted regular diet,
- Trend daily MELD 3.0 labs- CMP and INR
- Continue Vitamin K challenge for 3 days if component of malnutrition
- No role for steroids and would continue to hold given UTI
- On IV Ceftriaxone for UTI
- Paracentesis with IR 03/05/24 850 cc
- negative SBP
- Continue lactulose while inpatient given likely HE and evidence of splenorenal shunt as seen on MRI/MRCP
- Avoidance of all NSAIDs
- Agree with Folic Acid along with MVI
- Encourage ongoing EtOH cessation
-Follow up with Hepatology at [facility]ertiary center. Given phone numbers for [facility] and [place]. Patient also aware that she will need records and disc from this hospitalization as welll as last for the appointment. Written instructions
given to patient.
GI team will continue to follow.
Subjective
Subjective
Date of Service: March 07, 2024
Patient without any GI complaints. No abdominal pain. Eating well. No asterixis. EGD yesterday which will be detailed below. Discussed with patient at length about Hepatology follow up and written names and numbers provided to patient for all
tertiary centers to contact for appointment as well as instructions how to obtain her records and imaging for the [facility].
Objective
Data Reviewed
Laboratory Data:
Laboratory Results
03/07/24 07:41
03/07/24 07:41
Laboratory Results
PT 25.5 Sec (11.4-14.6) H 03/07/24 07:41
INR 2.33 03/07/24 07:41
Magnesium 1.6 mg/dl (1.6-2.3) 03/04/24 04:35
Total Bilirubin 6.5 mg/dl (0.2-1.3) H 03/07/24 07:41
AST 133 U/L (14-36) H 03/07/24 07:41
ALT 64 U/L (0-35) H 03/07/24 07:41
Alkaline Phosphatase 103 U/L (38-126) 03/07/24 07:41
Vital Signs and I&O:
Vital Signs
Temp Pulse Resp BP Pulse Ox
98.1 F 86 18 110/69 95
03/07/24 07:52 03/07/24 07:52 03/07/24 07:52 03/07/24 07:52 03/07/24 07:52
I&O
03/06/24 03/07/24 03/08/24
06:59 06:59 06:59
Intake Total 490 / 490 1140 / 1140
Balance 490 / 490 1140 / 1140
Physical Exam
Physical Exam
HEENT: Other (eyes slightly icteric)
Cardiology: Normal Sinus Rhythm
Pulmonary: Clear (mildly decreased bases b/l)
GI: Soft, Distended, Non Tender and Normal Bowel Sounds
Extremities: Edema (trace lower ext edema)
Neuro: Non Focal and Other (no asterixis)
--- NOTE | 2024-03-07 09:56 | W.PN.HOSP.TC ---
Today's Communication/Plan
-
Monitor vital signs
see plan
Discussed with gastroenterology, okay for discharge today
Patient will need to follow-up with hepatology outpatient
Repeat labs later this week or early next week with primary care provider
Time of discharge 38 minutes
Assessment / Plan
Assessment / Plan
Abd US
Biliary sludge, however no sonographic findings suggestive of acute cholecystitis.
The liver is mildly heterogeneous with increased echogenicity, likely hepatic steatosis. There is new moderate/large volume perihepatic free fluid.
The common bile duct is dilated measuring 1.0 cm. Recommend correlation with labs for possible biliary obstruction.
MR abd
Findings of likely chronic liver disease with moderate perihepatic and perisplenic free fluid and small volume ascites within the lower quadrants. There is evidence of portal hypertension with numerous dilated varicosities within the left upper
quadrant consistent with splenorenal shunt.
The gallbladder is mildly distended with biliary sludge. There is mild wall thickening although this is likely sequelae of chronic liver disease. No evidence of choledocholithiasis. The common bile duct measures 6 mm.
Small left and trace right pleural effusions with adjacent atelectasis.

Perihepatic ascites
-Patient denies of having any previous history of paracentesis
-No significant abdominal pain/fever
-S/p drainage of 850 mL acetic fluid. Fluid studies negative for SBP
Alcoholic cirrhosis
Elevated Total bilirubin
Thrombocytopenia
Coagulopathy
-Patient stated of being abstinent from alcohol use
-f/u T bilirubin/inr/plt
-Patient supposed to follow-up with GI/security flex utility officer? GI provided information to patient regarding hepatology follow-up at tertiary center
-Patient have dilated CBD of 1 cm on abdominal ultrasound, f/u MRI abd neg for acute abnormalities
Status post EGD 03/06 with mild varices, no banding. Patient will need to follow-up with hematology outpatient
Chronic macrocytic anemia
-No overt blood loss
S/p blood transfusion
EGD noted 03/06
-Maintain on empiric Protonix 40 mg/d
History of hepatic encephalopathy
-Maintained on oral lactulose therapy
-Home medication does not have lactulose
-Patient have bradyphrenia. no asterixis.
-goal of 2-3 soft BM/day
UTI
-No dysuria/discomfort.
-UA showing moderate pyuria.
-Afebrile/no leukocytosis
-Being maintained on Rocephin to cover it simultaneously for SBP as well
Hypokalemia
replete
Acute renal insufficiency
-Improved
Marijuana use
-Patient urine drug screen positive for marijuana
Essential Hypertension
-BP running on the low side therefore will hold metoprolol
DVT proph: SCDs
Code Status: Full Code
General: No Apparent Distress and Comfortable
HEENT: Negative Oxygen
Respiratory: Clear to Auscultation
Cardiac: Regular Rhythm and S1/S2; Negative Murmur or Rub
GI: Soft, Normal Bowel Sounds and Distended
Musculoskeletal: Edema, Right Lower Extrem and Edema, Left Lower Extrem
Neuro: Awake, Alert, Oriented, No Motor Deficits and Nonfocal/Grossly Intact
Psych: Calm
Anticipated Discharge: Today
Subjective/Interval History
-
Date of Service: March 07, 2024
Denies abdominal pain
Objective Data
-
Labs:
Laboratory Results
03/07/24
07:41
WBC 9.7
Hgb 8.6 L
Hct 24.8 L
Plt Count 104 L
PT 25.5 H
INR 2.33
Sodium 140
Potassium 3.3 L
Chloride 106
Carbon Dioxide 24
BUN 7
Creatinine 0.7
Glucose 121 H
Calcium 8.3 L
Total Bilirubin 6.5 H
AST 133 H
ALT 64 H
Alkaline Phosphatase 103
Vital Signs:
Vital Signs
Temp Pulse Resp BP Pulse Ox
98.1 F 86 18 110/69 95
03/07/24 07:52 03/07/24 07:52 03/07/24 07:52 03/07/24 07:52 03/07/24 07:52
I&O
03/06/24 03/07/24 03/08/24
06:59 06:59 06:59
Intake Total 490 / 490 1140 / 1140
Balance 490 / 490 1140 / 1140
--- NOTE | 2024-03-07 10:04 | W.DCSUMMARY ---
Discharge Summary
Discharge Data
Date of Admission: 03/03/24
Date of Discharge: 03/07/24
-
Pending Results: No
Hospital Course
58-year-old female with past medical history of alcohol use, marijuana use, essential hypertension came to the hospital with abnormal liver function test along with jaundice. Patient was seen by gastroenterology throughout hospitalization. MRI of
the abdomen was consistent with ascites along with portal hypertension with hepatic steatosis. It was determined that patient likely has alcohol related hepatitis along with possible cirrhosis. Patient was seen by gastroenterology throughout
hospitalization where she underwent EGD which showed mild varices which were not bleeding. She also had paracentesis where 850 cc of fluid was taken out which was negative for SBP. While she was hospitalized she did however had urinary tract
infection which was treated with antibiotics. She also had hepatic encephalopathy which was treated with lactulose. Gastroenterology recommended patient to follow-up closely with hepatology and has provided patient information regarding follow-up
at tertiary care center. Once her symptoms continue to improve, she was then discharged home with instructions to follow-up with all her physicians outpatient.
Discharge Plan
-
Patient Disposition: Home (Routine Discharge)
Discharge Diagnosis/Procedures: Perihepatic ascites status post paracentesis
Alcoholic hepatitis with possible superimposed cirrhosis
Splenorenal shunt
esophageal varices
Urinary tract infection
Diet: As tolerated
Activity: As tolerated
Driving Restrictions: As prior to admission
Bathing Restrictions: None
Blood Work: CBC and CMP later this week or early next week with primary care provider
Activity Restrictions/Additional Instructions:
Restart metoprolol when blood pressure greater than 140/90
Please follow-up with hepatology as soon as possible
Take lactulose to make sure you are having 2-3 bowel movements a day
Referrals:
Jethro Guerrero, DO [Active] -
Nichol Stokes CRNP [Family Provider] - in less than 1 week
Prescriptions:
New
lactulose 20 gram/30 mL Solution
20 g PO TID Qty: 1500 0RF
pantoprazole 40 mg Tablet,Delayed Release (Dr/Ec)
40 mg PO DAILY Qty: 30 0RF
cefdinir 300 mg capsule
300 mg PO BID 2 Days Qty: 4 0RF
Continued
tizanidine 2 mg Tablet
2 mg PO HS
folic acid 1 mg Tablet
1 mg PO DAILY Qty: 30 0RF
magnesium oxide 500 mg magnesium Tablet
750 mg PO BID Qty: 60 1RF
Held
metoprolol succinate 100 mg Tablet Extended Release 24 Hr
100 mg PO DAILY
Hold Instructions: Restart when blood pressure greater than 140/90
Discharge Orders:
Discharge Patient (As Directed); Ordered 03/07/24
Ordered By: Juan Manuel Tracey
Discharge Date and Time
Discharge Date/Time: 03/07/24 12:24
Print Language: CROATIAN
[2024-03-07] MEDS: KCL 40 MEQ PO (10:08)
[2024-03-07 11:38] VITALS: BP 122/78
== END 2024-03-07 12:24 | disposition home or self-care (01) | DRG 433 ==
LOC: 4 WEST ACU 22:35
PROVIDERS: Emergency Medicine; Hospitalist; Nurse Practitioner; Physician Assistant Medical; Radiology Diagnostic Radiology; ADMITTING PHYSICIAN Hospitalist; ATTENDING PHYSICIAN Internal Medicine; CONSULT PHYSICIAN Student in an Organized Health Care Education/Training Program; EMERGENCY PHYSICIAN Student in an Organized Health Care Education/Training Program; FAMILY PHYSICIAN Nurse Practitioner Adult Health
PROC: 0W9G3ZZ Drainage of Peritoneal Cavity, Percutaneous Approach (ICD-10-PCS; 2024-03-05)
PROC: 0DJ08ZZ Inspection of Upper Intestinal Tract, Via Natural or Artificial Opening Endoscopic (ICD-10-PCS; 2024-03-06)
DX: K70.11 Alcoholic hepatitis with ascites (principal); I85.10 Secondary esophageal varices without bleeding; K76.6 Portal hypertension; N17.9 Acute kidney failure, unspecified; N39.0 Urinary tract infection, site not specified; F10.20 Alcohol dependence, uncomplicated; K76.82 Hepatic encephalopathy; F32.A Depression, unspecified; I10 Essential (primary) hypertension; L40.50 Arthropathic psoriasis, unspecified; D69.6 Thrombocytopenia, unspecified; K70.31 Alcoholic cirrhosis of liver with ascites; K44.9 Diaphragmatic hernia without obstruction or gangrene; E78.00 Pure hypercholesterolemia, unspecified; F17.200 Nicotine dependence, unspecified, uncomplicated; K21.9 Gastro-esophageal reflux disease without esophagitis; K22.89 Other specified disease of esophagus; K31.89 Other diseases of stomach and duodenum; K76.0 Fatty (change of) liver, not elsewhere classified; F12.90 Cannabis use, unspecified, uncomplicated; Z96.89 Presence of other specified functional implants; R79.89 Other specified abnormal findings of blood chemistry; Z79.899 Other long term (current) drug therapy
CPT/HCPCS: 49083; 74183; 76705; 80053; 80306; 81003; 81015; 82077; 82140; 82150; 82248; 83615; 83735; 84157; 85025; 85027; 85610; 86850; 86900; 86901; 86920; 87015; 87070; 87071; 87086; 87186; 87205; 89051; 96374; 97166; 99284; A9575; P9016

== ENCOUNTER → 2024-03-24 08:40 | Outpatient (REF) | payer BC, SELFPAY | LOC: RAD 08:40 | PROVIDERS: ATTENDING PHYSICIAN Nurse Practitioner Adult Health | DX: M25.551 Pain in right hip (principal); G89.29 Other chronic pain | CPT/HCPCS: 73502 ==

== ENCOUNTER 2024-03-29 11:00 | Outpatient (RCR) | payer BC, SELFPAY | END 2024-03-29 23:59 | disposition home or self-care (01) | LOC: RPT 11:00 | PROVIDERS: ATTENDING PHYSICIAN Nurse Practitioner Adult Health | DX: R53.81 Other malaise (principal); M62.81 Muscle weakness (generalized); Z73.6 Limitation of activities due to disability | CPT/HCPCS: 97110; 97112; 97162 ==

== ENCOUNTER 2024-04-07 15:57 | Inpatient (IN) | payer BC, SELFPAY ==
[2024-04-07] VITALS (30 sets, daily range): BP systolic 77–110; BP diastolic 50–75; BMI 34.2; BMI 32.5
--- NOTE | 2024-04-07 08:21 | ED.GENMED ---
History of Present Illness
General
Chief Complaint: Weakness
Source: patient and records
Exam Limitations: none
Time Seen by Provider: 04/07/24 08:07
Nursing documentation reviewed up to this point in time: agreed with
History of Present Illness
History of Present Illness:
58-year-old female with a past medical history of hypertension, hyperlipidemia, GERD, history of alcohol abuse and concern for cirrhosis who presents to the ER for evaluation after a fall. Patient says that she woke up around 4 AM to go to the
bathroom and she lost her balance and fell forward. She landed on her knees struck her elbows on the ground. She is not sure whether she hit her head, does not believe she lost consciousness. She said she was too weak to stand up on her own and
so she was brought into the emergency room to be evaluated. She says she has had a mild headache since the fall. She says she has some mild neck pain and back pain as well although she has chronic arthritis which causes neck and back pain--she
feels it may be slightly worse since the fall. She said she has some mild substernal pain although she thinks this may have preceded the fall and seems to be related to swallowing. She said she has some very mild shortness of breath but again this
is more of a chronic issue. She said she has some soreness in her knees that feels like 'rug burn' but able to move her legs comfortably she says. No significant pain in the upper extremities. No nausea or vomiting. No numbness or weakness in
extremities. She is not on any blood thinners but she is noted to be thrombocytopenic.
Past History
Past History
ED Past Medical History: HTN and Psychiatric (Depression)
ED Past Surgical History: None
Social History
Tobacco: Smoker
Alcohol: Daily
Personal:
Living: with family
Employment: Employed
Family History
Family History: Negative Early CAD or CAD
Review of Systems
Review of Systems
All Other Systems: ROS reviewed and negative except as documented in HPI and ROS
Constitutional: Reports fatigue; Denies fever or chills
Respiratory: Reports trouble breathing; Denies cough
Cardiac: Reports chest pain; Denies palpitations
ABD/GI: Denies abdominal pain, nausea or vomiting
: Denies dysuria or flank pain
Musculoskeletal: Reports neck pain and back pain
Neurological: Reports headache and weakness (Generalized); Denies dizzy or numbness
Phy Exam
Physical Exam
Physical Exam:
General: Awake, alert, oriented x3; no acute distress
Head: Normocephalic, atraumatic
Eyes: Faint scleral icterus
Throat: Airway intact, handling secretions
Neck: Trachea midline, no midline cervical spine tenderness, mild paraspinal tenderness
Lungs: Clear to auscultation bilaterally, no wheezing, rales, rhonchi
Heart: Tachycardia with regular rhythm, no murmurs, gallops, or rubs; mild right parasternal tenderness, no chest wall crepitus
Abd: Soft, slightly distended with positive fluid wave, nontender
Back: No bruising or signs of trauma to the back or flank, no midline thoracic or lumbar tenderness
Neuro: No gross deficits
Skin: Mild jaundice
Extremities: Atraumatic, no reproducible tenderness in the extremities including in both knees and elbows and she moves knees and elbows through full range of motion without pain; she has bilateral edema in the lower extremities; equal pulses in all
extremities
Scores
Heart Failure Risk
Heart Failure Risk Score: Not Applicable
Heart Score for Chest Pain Patients
STEMI patient?: Not applicable
Withdrawal Assessment of Alcohol
Withdrawal Assessment Completed?: Not applicable
Course
Orders/Labs/Results
Orders:
Orders
04/07/24 08:17
CT Cervical Spine W/o Iv Contr Urgent
Comment:
Reason For Exam: neck pain s/p fall
CT Head W/o Iv Contrast Urgent
Comment:
Reason For Exam: fall with head strike
04/07/24 08:18
Electrocardiogram (*1) Urgent
Reason for Study: Chest Pain
EKG- Treatment ONCE
04/07/24 08:19
CT Chest/abd/pel W Iv Cont Urgent
Reason For Exam: ground level fall, low back pain, hypotension
0.9% Sodium Chloride 1000 ml [Nss] 1,000 ml IV BOLUS
04/07/24 08:30
Type+Screen Urgent
Alcohol Urgent
Ammonia Urgent
CPK [Creatine Phosphokinase] Urgent
Complete Blood Count/With Diff Urgent
Comprehensive Metabolic Panel Urgent
Lipase Urgent
Magnesium Urgent
Troponin I Urgent
04/07/24 09:03
Magnesium Oxide 500 mg PO NOW STA
Potassium Chloride [KCl] 40 meq PO NOW STA
04/07/24 11:33
Drug Screen, Urine [Urine Drug Abuse Screen] Urgent
Date Specimen was Collected: 04/07/24
Time Specimen was Collected: 11:25
Urinalysis Reflex To Culture Urgent
Date Specimen was Collected: 04/07/24
Time Specimen was Collected: 11:25
04/07/24 12:36
0.9% Sodium Chloride 1000 ml [Nss] 1,000 ml IV BOLUS
Abnormal Lab Results
04/07/24 04/07/24
08:30 11:33
RBC 2.38 L 10^6/uL
(4.20-5.40)
Hgb 8.4 L g/dL
(12.0-16.0)
Hct 24.8 L %
(37.0-47.0)
MCV 104.2 H fL
(81.0-99.0)
MCH 35.3 H pg
(27.0-31.0)
RDW 17.7 H %
(11.5-14.5)
MPV 10.9 H fL
(7.4-10.4)
Absolute Monos (auto) 1.1 H 10^3/uL
(0.1-0.6)
Absolute Eos (auto) 0.8 H 10^3/uL
(0-0.7)
Neutrophils % 27.9 L %
(42.2-75.2)
Monocytes % 16.7 H %
(1.7-9.3)
Eosinophils % 13.2 H %
(0-6)
Potassium 3.2 L mmol/L
(3.5-5.1)
Glucose 135 H mg/dl
(70-99)
Calcium 8.0 L mg/dl
(8.4-10.2)
Magnesium 1.5 L mg/dl
(1.6-2.3)
Total Bilirubin 3.0 H mg/dl
(0.2-1.3)
AST 59 H U/L
(14-36)
Ammonia 117 H umol/L
(9-30)
Creatine Kinase 26 L U/L
(30-135)
Total Protein 5.7 L g/dl
(6.3-8.2)
Albumin 2.2 L g/dl
(3.5-5.0)
U Marijuana (THC) Screen Positive H
(Negative)
04/07/24 08:30
04/07/24 08:30
Vital Signs
Blood pressure: 81/54
Initial and Last Documented VS:
Initial Vital Signs
Temp Pulse Resp BP Pulse Ox
36.4 C 107 18 77/54 99
04/07/24 08:01 04/07/24 08:01 04/07/24 08:01 04/07/24 08:01 04/07/24 08:01
Last Documented Vital Signs
Temp Pulse Resp BP Pulse Ox
36.4 C 75 20 81/54 96
04/07/24 08:01 04/07/24 11:45 12/06/24 11:45 04/07/24 12:54 04/07/24 11:17
MDM/Problems Addressed
Differential Diagnosis Includes:
Fall with multiple complaints�must rule out subdural hemorrhage/intracranial hemorrhage with thrombocytopenia and mild headache after fall with questionable head strike; rule out cervical spine injury; she is hypertensive and given that she is
complaining of some chest discomfort as well as back pain must rule out significant traumatic injury such as rib fracture, pneumothorax, hemothorax, retroperitoneal hemorrhage, etc; aside from trauma hypotension could also be from dehydration,
infection, etc which should be evaluated
MDM/Problems Addressed:
58-year-old female presents for evaluation after a ground-level fall�her chief complaint is generalized weakness but she offers multiple complaints of varying chronicity including but not limited to headache, neck pain, back pain, chest pain,
shortness of breath, soreness in the elbows and knees. Her vital signs are significant for hypotension with a blood pressure of 77/54, tachycardia with a heart rate of 107; pulse ox and respiratory rate normal. She is afebrile. Physical exam as
above�no serious objective findings to suggest significant traumatic injury but with abnormal vital signs and known history of thrombocytopenia ED trauma alert activated. Will send for a CT of the head, cervical spine, chest/abdomen/pelvis. Will
send off labs including a CBC and a CMP, CPK, type and screen, alcohol level. Will send urinalysis. Will check an EKG and troponin. Will provide fluids. Monitor closely reassess after the above.
Labs reviewed: CBC shows stable anemia, thrombocytopenia actually improving. CMP shows hypokalemia and she also has hypomagnesemia�repleted. Bilirubin downtrending. Her troponin is undetectable. Urinalysis no infection. CT head and cervical
spine negative for any acute pathology. CT chest/abdomen/pelvis showed increased abdominal ascites. No acute posttraumatic injuries. Patient remains complaining of severe weakness and she says she feels foggy. She has become increasingly tired.
Continue fluid resuscitation as a suspect she is intravascularly depleted likely third spacing with increased ascites. She also had elevated ammonia level. Discussed with GI can add increased lactulose to 30 mg 3 times daily and can also add
rifaximin 550 mg twice daily.
Despite fluids although blood pressure has improved patient remains mildly hypotensive. She is mildly encephalopathic suspect hepatic encephalopathy. She currently lives alone at this point I do not think she is stable for discharge we will plan
to admit for management of hepatic encephalopathy, fluid resuscitation and consideration for therapeutic paracentesis and albumin. Discussed with hospitalist.
Chronic conditions affecting care:
Alcohol use and cirrhosis
*Radiology
Radiology exam reviewed: radiology read reviewed
*Pulse Oximetry
Patient hypoxic: no
*EKG
Interpreted by ED Provider?: Yes
Heart Rate: 80
Rate: normal
Rhythm: sinus
[place]: normal axis
QRS Pattern: low voltage
Ischemia: non-specific ST changes
*Critical Care Note
Total Time (30-74mins, 75-104mins- exclusive of procedures): Not Applicable
Data Reviewed
Review of Other/Old Records Reveals: Labs, Records and Discharge Summary
Source: patient and records
Patient Management
Social determinants of health affecting care: Living situation and Substance abuse
Discussion with other providers: Hospitalist (Discussed with hospitalist) and Hr Systems Analyst (Discussed with gastroenterology)
Escalation/DeEscalation of care consider admission/obs:
Admission indicated
ED Attending Note
-
Portions of this chart may have been created with voice recognition software.� Occasional wrong word or��sound alike� substitutions may have occurred due to the inherent limitations of voice recognition software.
Discharge Plan
Departure
Patient Disposition: Admit
Date of Disposition: 04/07/24
Time of Disposition: 14:41
Admit to doctor: Venkatesh
Presentation/result/management discussed w/ accepting MD/DO: Hospitalist
Patient with high blood pressure during this ER visit?: No
Discharge Problem:
Hepatic encephalopathy, Weakness, Fall, Dehydration, Ascites
Instructions: Hepatic encephalopathy
Prescriptions:
New
lactulose 20 gram/30 mL solution
30 g PO TID Qty: 3000 0RF
Xifaxan 550 mg tablet
550 mg PO BID Qty: 60 0RF
No Action
tizanidine 2 mg Tablet
2 mg PO HS
folic acid 1 mg Tablet
1 mg PO DAILY Qty: 30 0RF
magnesium oxide 500 mg magnesium Tablet
750 mg PO BID Qty: 60 1RF
pantoprazole 40 mg Tablet,Delayed Release (Dr/Ec)
40 mg PO DAILY Qty: 30 0RF
melatonin 3 mg Tablet
3 mg PO HSPRN PRN (Reason: sleep)
omeprazole 20 mg Capsule,Delayed Release(Dr/Ec)
20 mg PO HS
lactulose 20 gram/30 mL solution
20 g PO BID
Referrals:
Jethro Guerrero DO [Active] - Call in 1-3 days for appt
Nichol Stokes CRNP [Family Provider] -
Activity Restrictions/Additional Instructions:
You should follow-up with the GI doctor as soon as possible�they should reach out to you to schedule an appointment but if you do not hear from them by Wednesday early you should call them to ensure close follow-up. You should start taking
lactulose at a new dose of 30 g 3 times daily; if you do not have 4 bowel movements daily at that dose then you should increase the dosing to 30 g 4 times daily. We also added a new medicine called Xifaxan which you should take twice daily as
prescribed. If you feel your symptoms are worsening you should return immediately to the emergency room.
Thank you for visiting the Emergency Department at [facility].
1. Please schedule a follow up appointment as directed. Call first thing tomorrow morning to make an appointment.
2. If indicated, please take your medications as instructed and indicated on discharge paperwork.
3. If any of your symptoms do not improve, or persist, or become more severe within 6-12 hours, please return to the emergency department for further care.
4. Please return to the emergency department if you develop a headache, neck pain/stiffness, fever greater than 100.4F, chest pain, shortness of breath, persistent nausea, vomiting, slurred speech, difficulty walking, numbness/tingling, weakness,
signs of infection or any other symptoms that are worrisome to you.
Please call [phone] if you have any questions.
Interventions
Interventions:
*Risk Screen - Suicide Last Done: 04/07/24 08:01
*General Assessment Last Done: 04/07/24 08:01
*Neglect/Abuse Screening Last Done: 04/07/24 08:01
ED- Fall Risk Assessment Last Done: 04/07/24 08:15
*ED COVID-19 Vaccine History Last Done: 04/07/24 08:05
ED- Cardiac Assessment Last Done: 04/07/24 08:15
ED-Musculoskeletal Assessment Last Done: 04/07/24 08:15
ED- Neurological Assessment Last Done: 04/07/24 08:15
ED- Pulmonary Assessment Last Done: 04/07/24 08:15
ED-Skin Assessment Last Done: 04/07/24 08:15
Discharge Date and Time
Print Language: SWISS
[2024-04-07] MEDS: NSS 1000 IV ×2 (08:27→13:30)
[2024-04-07 08:52] LABS: % Basophils 1.1 % (0-2); % Eosinophils 13.2 % (0-6); % Immature Granulocytes 0.2 % (0-0.5); % Lymphocytes 40.9 % (20.5-51.1); % Monocytes 16.7 % (1.7-9.3); % Neutrophils 27.9 % (42.2-75.2); Absolute Basophils 0.1 10^3/uL (0-0.2); Absolute Eosinophils 0.8 10^3/uL (0-0.7); Absolute Lymphocytes 2.6 10^3/uL (1.2-3.4); Absolute Monocytes 1.1 10^3/uL (0.1-0.6); Absolute Neutrophils 1.8 10^3/uL (1.4-6.5); Hematocrit 24.8 % (37.0-47.0); Hemoglobin 8.4 g/dL (12.0-16.0); Mean Corp Hgb Conc. 33.9 g/dL (33.0-37.0); Mean Corpuscular Hgb 35.3 pg (27.0-31.0); Mean Corpuscular Volume 104.2 fL (81.0-99.0); Mean Platelet Volume 10.9 fL (7.4-10.4); Nucleated Red Blood Cells % 0 %; Platelet Count 131 10^3/uL (130-400); Red Blood Cell Count 2.38 10^6/uL (4.20-5.40); Red Cell Dist. Width 17.7 % (11.5-14.5); White Blood Cell Count 6.3 10^3/uL (4.8-10.8)
[2024-04-07 09:01] LABS: ALT (SGPT) 35 U/L (0-35); AST (SGOT) 59 U/L (14-36); Albumin 2.2 g/dl (3.5-5.0); Alkaline Phosphatase 96 U/L (38-126); Blood Urea Nitrogen 10 mg/dl (7-17); Carbon Dioxide 23 mmol/L (22-30); Chloride 103 mmol/L (98-107); Creatine Phosphokinase 26 U/L (30-135); Glucose 135 mg/dl (70-99); Lipase 232 U/L (23-300); Magnesium 1.5 mg/dl (1.6-2.3); Potassium 3.2 mmol/L (3.5-5.1); Sodium 135 mmol/L (135-145); Total Protein 5.7 g/dl (6.3-8.2); eGFR > 60.00
[2024-04-07 09:02] LABS: Ammonia 117 umol/L (9-30)
[2024-04-07 09:08] LABS: Alcohol None Detected
[2024-04-07 09:12] LABS: Troponin I < 0.012 ng/ml
[2024-04-07] MEDS: KCL 40 MEQ PO (09:55)
[2024-04-07] MEDS: MAGNESIUM OXIDE 500 MG PO (09:55)
[2024-04-07 12:22] LABS: Amphetamines Negative (Negative); Barbiturates Negative (Negative); Benzodiazepines Negative (Negative); Buprenorphine Negative (Negative); Cocaine Negative (Negative); Marijuana Positive (Negative); Tricyclic Antidepressants Negative (Negative)
[2024-04-07 12:23] LABS: Methadone Negative (Negative); Methamphetamines Negative (Negative); Opiates Negative (Negative); Phencyclidine Negative (Negative)
[2024-04-07 14:26] LABS: Urine Albumin Trace (Neg - Trace); Urine Bilirubin Negative (Negative); Urine Character Clear (Clear); Urine Color Yellow; Urine Glucose Negative (Negative); Urine Ketone Negative (Negative); Urine Leukocyte Negative (Negative); Urine Nitrite Negative (Negative); Urine Occult Blood Negative (Negative); Urine Urobilinogen Negative (Neg - 1+)
--- NOTE | 2024-04-07 15:05 | HPS.HSE ---
Addendum entered and electronically signed by Mookie Riddle MD 04/07/24 15:38:
Contact Lens Molder consulted
Original Note:
Family Physician
-
Family Physician: JEROMY Tilley
Chief Complaint
-
Fall
History of Present Illness
HPI
58M HX ETOH use disorder, decompensated cirrohosis,ascites, hypertension, hyperlipidemia, GERD, seen ER
- for evaluation after a fall - go to the bathroom and she lost her balance and fell forward.
- landed on her knees struck her elbows on the ground
- not sure whether she hit her head
- does not believe she lost consciousness.
- was too weak to stand up on her own and so she was brought into the emergency room to be evaluated.
- mild headache since the fall
- some mild neck pain and back pain as well although she has chronic arthritis which causes neck and back pain
- some very mild shortness of breath but again this is more of a chronic issue.
- not on any blood thinners but she is noted to be thrombocytopenic.
ROS :
No significant pain in the upper extremities.
No nausea or vomiting.
No numbness or weakness in extremities.
Medical History
Past Medical History
Past Medical History: Reports Other
Additional Past Medical History:
Alcoholic Cirrhosis
Essential Hypertension
Hyperlipidemia
Psoriatic Arthritis
Past Surgical History: Reports Other
Additional Past Surgical History:
Right Arm ORIF
Bunionectomy
Social History
Tobacco: Smoker
Alcohol: Former
Family History
Family History: Not pertinent
Allergies / Home Medications
Allergies reflects when Allergies were last updated in [employer].
Home Medications with original date entered in [employer]
Allergy/Medication List:
Allergies
Allergy/AdvReac Type Severity Reaction Status Date / Time
No Known Allergies Allergy Unverified 02/06/24 12:36
Home Medications
tizanidine 2 mg tablet 2 mg PO HS Muscle Spasms 02/06/24
folic acid 1 mg tablet 1 mg PO DAILY #30 tabs 02/11/24
magnesium oxide 750 mg (1.5 x 500 mg magnesium) PO BID #60 tabs 02/11/24
metoprolol succinate 100 mg tablet,extended release 24 hr 100 mg PO DAILY 03/03/24
Review of Systems
-
A 12 point ROS was completed and negative except as noted: Yes
Constitutional: Denies Fever or Chills
Respiratory: Denies Cough or Trouble Breathing
Cardiac: Denies Chest Pain or Palpitations
Abdomen/GI: Reports See HPI
: Denies Dysuria
Physical Exam
Vital Signs
Vital Signs
Temp Pulse Resp BP Pulse Ox
97.5 F 69 14 87/60 96
04/07/24 08:01 04/07/24 14:45 04/07/24 14:45 04/07/24 14:03 04/07/24 11:17
Physical Exam
General: Comfortable and Conversant (slow cogntive speed )
HEENT: Other (Mucous membranes are slightly dry; Sclera are icteric)
Respiratory: Clear and Non Labored Respirations
Cardiac: S1/S2 and Regular Rhythm
GI: Soft, Non Tender and Distended
Musculoskeletal: No Clubbing, No Cyanosis and Other (+1 pitting edema bilateral lower extremities which patient reports has been chronic for past 2 years)
Skin: Warm, Dry and Jaundice
Neuro: Awake, Alert (slow cognitive speed ), Oriented, Nonfocal/grossly intact and Other (POS asterixis )
Psych: Anxious
Laboratory Results
-
04/07/24 08:30
04/07/24 08:30
Laboratory Results
Total Bilirubin 3.0 mg/dl (0.2-1.3) H 04/07/24 08:30
AST 59 U/L (14-36) H 04/07/24 08:30
ALT 35 U/L (0-35) 04/07/24 08:30
Alkaline Phosphatase 96 U/L (38-126) 04/07/24 08:30
Troponin I < 0.012 ng/ml 04/07/24 08:30
Lipase 232 U/L (23-300) 04/07/24 08:30
Data Reviewed
-
CT Scan: Report Reviewed by me
Lab Data: Labs Reviewed by me
Old Records: Reviewed
Impression/Plan
-
04/07/24
08:01 04/07/24
11:15 04/07/24
11:17
Temp 97.5 F
Pulse
Resp Rate
Blood pressure
SaO2 98 96
04/07/24
11:22 04/07/24
11:30 04/07/24
11:45
Temp
Pulse 95 75
Resp Rate 23 20
Blood pressure 101/65
SaO2
04/07/24
12:54
Temp
Pulse
Resp Rate
Blood pressure 81/54
SaO2
PE
General: slow cognitive speed , follow simple commands
HEENT: Other (Mucous membranes are slightly dry; Sclera are icteric)
Respiratory: Clear and Non Labored Respirations
Cardiac: S1/S2 and Regular Rhythm
GI: Soft, Non Tender and Distended
Musculoskeletal: No Clubbing, No Cyanosis and Other (+1 pitting edema bilateral lower extremities which patient reports has been chronic for past 2 years)
Skin: Warm, Dry and Jaundice
Neuro: Awake, Alert, Oriented and Nonfocal/grossly intact
Psych: Calm
Laboratory Tests
03/07/24 04/07/24 04/07/24
07:41 08:30 11:33
WBC 9.7 6.3
Hgb 8.6 L 8.4 L
MCV 104.2 H
Plt Count 131
Potassium 3.2 L
Creatinine 0.7
eGFR > 60.00
Glucose 135 H
Calcium 8.0 L
Magnesium 1.5 L
Total Bilirubin 6.5 H 3.0 H
AST 59 H
Ammonia 117 H
Creatine Kinase 26 L
Troponin I < 0.012
Albumin 2.2 L
U Marijuana (THC) Screen Positive H
HCT: No acute intracranial abnormality.
CT Chest/abd/pel W Iv Cont
No acute posttraumatic abnormality seen throughout the chest, abdomen and pelvis.
Left lower lobe consolidation with air bronchograms which could represent atelectasis and/or pneumonia and small left pleural effusion.
No findings to suggest recent bilateral rib fracture, thoracic vertebral compression fracture, sternal fracture or lumbar vertebral compression fracture.
Left upper quadrant abdominal splenorenal varices again seen.
Small to moderate abdominal ascites, new and moderate pelvic ascites increased in comparison to prior CT.
Large gastric diverticulum again seen.
CT Cervical Spine W/o Iv Contr:
Straightening of the normal cervical lordotic curvature.
Degenerative changes.
No findings to suggest recent cervical spine fracture.
Small left pleural effusion noted in the included small portion of the upper chest.
03/04/24 MRI abd
Findings of likely chronic liver disease with moderate perihepatic and perisplenic free fluid and small volume ascites within the lower quadrants. There is evidence of portal hypertension with numerous dilated varicosities within the left upper
quadrant consistent with splenorenal shunt.
The gallbladder is mildly distended with biliary sludge. There is mild wall thickening although this is likely sequelae of chronic liver disease. No evidence of choledocholithiasis. The common bile duct measures 6 mm.
Small left and trace right pleural effusions with adjacent atelectasis.
EKG
NORMAL SINUS RHYTHM
POSSIBLE LEFT ATRIAL ENLARGEMENT
LOW VOLTAGE QRS
INFERIOR INFARCT (CITED ON OR BEFORE 06-FEB-2024)
CANNOT RULE OUT ANTERIOR INFARCT (CITED ON OR BEFORE 06-FEB-2024)
PROLONGED QT
ABNORMAL ECG
WHEN COMPARED WITH ECG OF 06-FEB-2024 10:24,
QUESTIONABLE CHANGE IN INITIAL FORCES OF ANTERIOR LEADS
ST NO LONGER ELEVATED IN INFERIOR LEADS
T WAVE INVERSION NO LONGER EVIDENT IN LATERAL LEADS
Last hospitalist admission:Date of Admission: 03/03/24 -Date of Discharge: 03/07/24
DC Dxs:
Perihepatic ascites status post paracentesis
Alcoholic hepatitis with possible superimposed cirrhosis
Splenorenal shunt
esophageal varices
Urinary tract infection
ASSESSMENT & PLAN
Fall probably due to hepatic encephalopathy: NH3 117: POS Bradyphrenia.POS asterixis.
HX Decompensated Cirrhosis with hepatic Encephalopathy and New Ascites
Associated synthetic dysfunction: hypoalbuminemia, coagulopathy
CT POS for Left upper quadrant abdominal splenorenal varices : Status post EGD 03/06/24 with mild varices, no banding.
- increased lactulose to 3og q6hr: goal of 2-3 soft BM/day
- cont. RFX 550 BID
- Tx probable PNA with empiric Zosyn plus or minus SBP but low clinical suspicion
- Trend NH3 daily
- GI consult
Left lower lobe consolidation with air bronchograms
DDX atelectasis and/or pneumonia and small left pleural effusion
- empiric Zosyn
- check PCT
Small to moderate abdominal ascites, new and moderate pelvic ascites increased in comparison to prior CT.
- No significant abdominal pain/fever
- IR consult abdo paracentesis Dx-tic and Rx-tic
Alcoholic cirrhosis
-Patient stated of being abstinent from alcohol use
Elevated Total bilirubin
HX Thrombocytopenia: currently normal Plt
Coagulopathy
HX Sono suggest dilated CBD of 1 cm but f/u MRI abd NEG for acute abnormalities
Patient will need to follow-up with hematology outpatient
Chronic macrocytic anemia
-No overt blood loss: EGD noted 03/06
-Maintain on empiric Protonix 40 mg/d
Hypotension due to cirrhosis
Essential Hypertension
- Not on any anti HTN meds
Hypokalemia s/p KCL 40 x1
Hypomagnesemia s/p PO 500 mg
- Trend Mg and K in am repletes needed
HX Marijuana use
-Patient urine drug screen positive for marijuana
DVT proph: SCDs
Code Status: Full Code
ICU
Total Critical Care Time__75___ minutes. I was immediately available to the patient and staff. I personally examined, reviewed labs, diagnostic images/reports, interpretations, treatment plans, discussed patient care with other providers and
family or caregivers (if patient is unable to make decisions), entered orders as appropriate and documented the medical record.
--- NOTE | 2024-04-07 15:34 | CON.GI ---
Addendum entered and electronically signed by Anastasiia Celestin MD 04/07/24 18:34:
I saw and examined the patient.
The GARMENT FORM ASSEMBLER's note was reviewed and I agree with the note.
Comment: This is a 58 old female with history of alcohol abuse, alcohol hepatitis, cirrhosis, ascites status post paracenteses, esophageal varices followed up with Dr. Guerrero on April 04 and was also going to be referred to Dr. Abel and was also
scheduled for labs and MR elastography who now presents to the ER with weakness and fall and she did have a CT chest abdomen and pelvis with no fractures on admission we were consulted for possible hepatic encephalopathy. Currently no fevers or
chills no rectal bleeding she did have hypokalemia on admission and she is also says that she has missed a few doses of lactulose as outpatient and also possible viral gastroenteritis around . Her last drink of alcohol was about 6
months ago.
Assessment and plan weakness and confusion most likely from hepatic encephalopathy with elevated ammonia level also most likely related to recent noncompliance with lactulose and also likely worsened with hypokalemia. potassium repleted, increased
dose of lactulose, added Xifaxan. will also rule out infection and she has been started on Zosyn for possible pneumonia as reported on CT. She also has ascites but per IR not enough to tap. DW Dr. Riddle
Original Note:
Consultation
-
Date/Time Consultation Requested: 04/07/241514
Date/Time Consultation Performed: 04/07/24 1535
Requesting Provider: Mookie Riddle MD
Performing Provider: JEROMY Norman, Anastasiia Celestin MD
Reason for Consultation: confusion
Medical History
Chief Complaint / HPI
Chief Complaint: altered mental status
History of Present Illness:
This is a 58-year-old female with a past medical history of HTN, hyperlipidemia, psoriatic arthritis, marijuana use, alcohol use disorder with several recent admission since January with recently concern for alcoholic hepatitis/cirrhosis
(steroid were held with concern for UTI then out of Window for use with improved number). Liver disease was complicated by ascites requiring paracentesis, EGD with mild non bleeding varices and hepatic encephalopathy. She was last admitted in
Early March with and patient was to follow up at tertiary center with hepatology and Dr. Guerrero due in May. She now present for recurrent admission with weakness after fall. On admission noted with hbg 8.4 up fro 7.1 last admission, continued
macrocytosis , platelet 131, INR 2.33, improved LFT's with bili 3, AST 59, ALT 35, alk phos 96, albumin 2.2 and ammonia 117. She admits to last ETOH 6 months ago.
At this time patient is confused but conversant. She was unsure of plan for liver follow up. Pt admits to some odynophagia and constipation and diarrhea. She does admit to possibly missing Lactulose dosing as thought she was done. She denies
GERD, nausea, vomiting, abdominal pain, or bleeding. Hx EGD 03/2024- with Dr. Guerrero grade I EV flatten with insufflation, no banding done. med PEH with food in stomach and concern for gastric delay. Moderate portal HTN.
Past Medical History
Past Medical History: GERD, HTN, Hypercholesterolemia and Other (Psoriatic arthritis, alcohol use disorder, chronic lower extremity edema)
Past Surgical History: Other (Patient could not report surgical history)
Social History
Tobacco: Non-Smoker
Alcohol: Chronic Alcoholic (states she quit 6 months ago but admits to heavy ETOH with hx recent divorce prior to quitting)
Drug: Marijuana
Living: Alone
Family History
Family History: Reviewed & Not Pertinent
Allergies / Home Medications
Allergy/AdvReac Type Severity Reaction Status Date / Time
No Known Allergies Allergy Verified 04/07/24 08:01
�Medication �Instructions �Recorded
tizanidine 2 mg tablet 2 mg PO HS Muscle Spasms 02/06/24
folic acid 1 mg tablet 1 mg PO DAILY #30 tabs 02/11/24
magnesium oxide 750 mg (1.5 x 500 mg magnesium) PO 02/11/24
BID #60 tabs
pantoprazole 40 mg tablet,delayed 40 mg PO DAILY #30 tabs 03/07/24
release
lactulose 20 gram/30 mL oral 20 g PO BID 04/07/24
solution
lactulose 20 gram/30 mL oral 30 g (45 mL) PO TID #3,000 mL 04/07/24
solution
melatonin 3 mg tablet 3 mg PO HSPRN PRN sleep 04/07/24
omeprazole 20 mg capsule,delayed 20 mg PO HS 04/07/24
release
rifaximin 550 mg tablet (Xifaxan) 550 mg PO BID #60 tabs 04/07/24
Review of Systems
-
History Source: Patient
Constitutional: Reports Weight Gain
EENT: Reports No Symptoms
Respiratory: Reports Trouble Breathing
Cardiac: Reports No Symptoms
Abdomen/GI: Reports Diarrhea, Constipated and Other (abd distention , odynophagia , occasional rectal bleeding )
: Reports No Symptoms
Musculoskeletal: Reports No Symptoms
Skin: Reports No Symptoms
Neurological: Reports Weakness and Other (confusion )
Endocrine: Reports No Symptoms
Hematologic/Lymphatic: Reports No Symptoms
Vital Signs
Temp Pulse Resp BP Pulse Ox
97.5 F 69 14 87/60 96
04/07/24 08:01 04/07/24 14:45 04/07/24 14:45 04/07/24 14:03 04/07/24 11:17
Physical Exam
Exam
General: No Apparent Distress and Other (jaundice with diffuse LE swelling )
HEENT: Normocephalic
Respiratory: Clear
Cardiac: Regular Rhythm
GI: Soft, Non Tender and Non Distended
Musculoskeletal: No Clubbing and No Cyanosis
Skin: Warm and Dry
Neuro: Awake, Alert and Other (mild asterixis, confused to some questions)
Psych: Calm
Results
WBC 6.3 10^3/uL (4.8-10.8) 04/07/24 08:30
Hgb 8.4 g/dL (12.0-16.0) L 04/07/24 08:30
Hct 24.8 % (37.0-47.0) L 04/07/24 08:30
MCV 104.2 fL (81.0-99.0) H 04/07/24 08:30
Plt Count 131 10^3/uL (130-400) 04/07/24 08:30
Absolute Neuts (auto) 1.8 10^3/uL (1.4-6.5) 04/07/24 08:30
Sodium 135 mmol/L (135-145) 04/07/24 08:30
Potassium 3.2 mmol/L (3.5-5.1) L 04/07/24 08:30
Chloride 103 mmol/L (98-107) 04/07/24 08:30
Carbon Dioxide 23 mmol/L (22-30) 04/07/24 08:30
BUN 10 mg/dl (7-17) 04/07/24 08:30
Creatinine 0.7 mg/dL (0.6-1.0) 04/07/24 08:30
Calcium 8.0 mg/dl (8.4-10.2) L 04/07/24 08:30
Total Bilirubin 3.0 mg/dl (0.2-1.3) H 04/07/24 08:30
AST 59 U/L (14-36) H 04/07/24 08:30
ALT 35 U/L (0-35) 04/07/24 08:30
Alkaline Phosphatase 96 U/L (38-126) 04/07/24 08:30
Lipase 232 U/L (23-300) 04/07/24 08:30
Diagnostic Image Results:
04/07/24 CT Chest/abd/pel W Iv Cont
No acute posttraumatic abnormality seen throughout the chest, abdomen and pelvis.
Left lower lobe consolidation with air bronchograms which could represent atelectasis and/or pneumonia and small left pleural effusion.
No findings to suggest recent bilateral rib fracture, thoracic vertebral compression fracture, sternal fracture or lumbar vertebral compression fracture.
Left upper quadrant abdominal splenorenal varices again seen.
Small to moderate abdominal ascites, new and moderate pelvic ascites increased in comparison to prior CT.
Large gastric diverticulum again seen.
04/07/24 HCT
No acute intracranial abnormality.
No interval change.
04/07/24 CT Cervical Spine W/o Iv Contr
Straightening of the normal cervical lordotic curvature.
Degenerative changes.
No findings to suggest recent cervical spine fracture.
Small left pleural effusion noted in the included small portion of the upper chest
03/04/24 MRI abdomen
Findings of likely chronic liver disease with moderate perihepatic and perisplenic free fluid and small volume ascites within the lower quadrants. There is evidence of portal hypertension with numerous dilated varicosities within the left upper
quadrant consistent with splenorenal shunt.
The gallbladder is mildly distended with biliary sludge. There is mild wall thickening although this is likely sequelae of chronic liver disease. No evidence of choledocholithiasis. The common bile duct measures 6 mm.
Small left and trace right pleural effusions with adjacent atelectasis.
Prior GI Procedures:
EGD: 03/2024- with Dr. Guerrero grade I EV flatten with insufflation, no banding done. med PEH with food in stomach and concern for gastric delay. Moderate portal HTN.
Colonoscopy: none
Assessment / Plan
-
This is a 58-year-old female with a past medical history of HTN, hyperlipidemia, psoriatic arthritis, marijuana use, alcohol use disorder with several recent admission since January with recently concern for alcoholic hepatitis/cirrhosis
(steroid were held with concern for UTI then out of Window for use with improved number). Liver disease was complicated by ascites requiring paracentesis, EGD with mild non bleeding varices and hepatic encephalopathy. She was last admitted in
Early March with and patient was to follow up at tertiary center with hepatology and Dr. Guerrero due in May. She now present for recurrent admission with weakness after fall. On admission noted with hbg 8.4 up fro 7.1 last admission, continued
macrocytosis , platelet 131, INR 2.33, improved LFT's with bili 3, AST 59, ALT 35, alk phos 96, albumin 2.2 and ammonia 117. She admits to last ETOH 6 months ago.
-HE with marked elevated ammonia level on admission
-ETOH hepatitis/cirrhosis with decompensation
-hypotension
-concern for PNA on admission
-ascites requiring paracentesis
-grade I EV
-Splenorenal Shunt/portal HTN
-hypotension
-coagulopathy
-hypoalbuminemia
PLAN:
Etiology of HE triggered by infection (? PNA) vs other- pt admits to some non compliance wit lactulose vs other
imaging as noted with fall
CT with possible PNA
will add blood culture, CT chest as noted with possible PNA
I also sent message to IR to see if diagnostic para can be done to rule out SBP last tap 03/05 neg
cont Lactulose 30 grams q 6 and Xifaxan BID
follow MELD labs -- current MELD 3.0 on admission 24 down from 26 last admission
2g Na+ restricted regular diet,
s/p vitamin K last admission with minimal improvement
cont abx per hospitalist for possible PNA
counseled pt on continued ETOH abstinence, need for hepatology follow up and need for compliance with medication
Avoidance of all NSAIDs
Agree with Folic Acid
I left message to review with son
Pt due follow up with Dr. Guerrero 05/23/24 at 1:30 PM.
-
-
Thank you for consultation and allowing me to participate in the patient's care. Please call the nurse practitioner per diem GI physician during the after hours with any questions or concerns.
[2024-04-07] MEDS: XIFAXAN 550 MG PO ×2 (15:56→21:08)
[2024-04-07] MEDS: DUPHALAC/CHRONULAC 30 GRAMS PO (15:58)
--- NOTE | 2024-04-07 18:00 | PTCARENOTE ---
Pt arrived from ED monitored with RN via stretcher. She was able to transport to stretcher by standing and pivoting. She is awake and alert. Right AC#20g protective catheter. Good radial pulses. +4 lower extremity edema. Lungs CTA. RA pulse ox 99%.
+BSx4. Ascites. Poor appetite, with c/o difficulty swallowing in the last week. She c/o abdominal gurgling. She was informed of the plan of care. PArents also informed of the plan of care. Safe environment maintained.
[2024-04-07 18:06] LABS: Procalcitonin 0.06 ng/ml (0.0-0.25)
--- NOTE | 2024-04-07 18:07 | CON.INTV ---
Consultation
Consultation Request
Date/Time Consultation Requested: 04/07/2024 - 1744
Date/Time Consultation Performed: 04/07/2024 - 1801
Requesting Provider: Dr. Riddle
Performing Provider: Dr. Rm
Reason for Consultation: Hypotension
Medical History
-
Chief Complaint: Passed out
History of Present Illness:
58-year-old female with a past medical history of cirrhosis, history of portal vein thrombosis, hypertension, depression, peripheral neuropathy and history of UTI who presents with syncope. Patient was at home and got up out of bed to go to the
bathroom when she passed out and fell and hit her head. She denies any preceding symptoms including no chest pain, shortness of breath, abnormal aura, abdominal pain or visual disturbances. 911 was called and then she came to the ER where she felt
very weak on arrival. She endorses shortness of breath but it is chronic and not bothersome to her. In the ER she was afebrile to 97.5 �F, pulse rate 107, breathing at 18 breaths/min, BP low at 77/54 and saturating 99% on room air. Labs showed Hb
8.4, platelets 131, absolute eosinophils were elevated at 800, potassium level low at 3.2, magnesium 1.5, T. bili 3, troponin negative at <0.012, albumin level low at 2.2, urinalysis with no signs of UTI, UDS positive for marijuana, and her alcohol
level was negative. Blood culture x [address] head + CT cervical spine was collected, showing no acute intracranial findings and no fracture. A CT chest/abdomen/pelvis with IV contrast was performed showing no acute posttraumatic
abnormality in the chest, abdomen or pelvis. There was a left lower lobe consolidation with air bronchograms representing pneumonia versus atelectasis. In the ER she was given 2 L NS 0.9%, potassium chloride, rifaximin and magnesium oxide.
Unfortunately she remained hypotensive with SBP in the 70�80s and was admitted to the ICU for further care with leak patcher services consulted for additional management/recommendations.
When I saw the patient she was resting in bed in no acute distress. BP 86/60, heart rate 86 and she is saturating 98% on room air. She is awake, alert and answering my questions appropriately. She remembers falling at home and is not confused.
She does admit that she has been having difficulty swallowing for the last week and has throat pain. She denies ever having thrush in the past. Currently denies CAMPA, chest pain, SOB at rest, abdominal pain, nausea, fevers or chills.
PMHx: Hypertension, alcoholic cirrhosis with esophageal varices, ascites, portal hypertension and history of hepatic encephalopathy, chronic back pain due to herniated disks, psoriatic arthritis, anxiety, history of alcohol use disorder
PSHx:LASIK (2010), L5-S1 ILESI (03/2019)
Past Medical History
Past Medical History: Other (Above as per HPI)
Past Surgical History: Other (Above as per HPI)
Social History
Tobacco: Vaping (Infrequent use)
Alcohol: Former (Last drink was in December 2023)
Drug: None
Family History
Family History: CAD (Paternal grandfather: History of [place]) and Other (Alcoholism (paternal grandfather + paternal grandmother); maternal grandfather: Stroke)
Allergies / Home Medications
Allergies
Allergy/AdvReac Type Severity Reaction Status Date / Time
No Known Allergies Allergy Verified 04/07/24 08:01
Home Medications
�Medication �Instructions �Recorded �Confirmed �Last Taken �Type
tizanidine 2 mg tablet 2 mg PO HS Muscle Spasms 02/06/24 04/07/24 Unknown History
folic acid 1 mg tablet 1 mg PO DAILY #30 tabs 02/11/24 04/07/24 Unknown Rx
magnesium oxide 750 mg (1.5 x 500 mg magnesium) PO 02/11/24 04/07/24 Unknown Rx
BID #60 tabs
pantoprazole 40 mg tablet,delayed 40 mg PO DAILY #30 tabs 03/07/24 04/07/24 Unknown Rx
release
lactulose 20 gram/30 mL oral 20 g PO BID hepatic encephalopathy 04/07/24 04/07/24 Unknown History
solution
lactulose 20 gram/30 mL oral 30 g (45 mL) PO TID #3,000 mL 04/07/24 Unknown Rx
solution
melatonin 3 mg tablet 3 mg PO HSPRN PRN sleep 04/07/24 04/07/24 Unknown History
omeprazole 20 mg capsule,delayed 20 mg PO HS Gastrointestinal Issue 04/07/24 04/07/24 Unknown History
release
rifaximin 550 mg tablet (Xifaxan) 550 mg PO BID #60 tabs 04/07/24 Unknown Rx
Review of Systems
-
History Source: Patient
All other systems: Negative unless noted
Vitals / Labs / Diagnostic Testing
Vital Signs
Temp Pulse Resp BP Pulse Ox
97.2 F 77 20 90/58 99
04/07/24 17:57 04/07/24 17:30 04/07/24 17:30 04/07/24 17:30 04/07/24 18:18
Lab Data
04/07/24 08:30
04/07/24 08:30
Diagnostic Testing:
Physical Exam
-
HEENT: Normocephalic and Anicteric
Cardiovascular: S1/S2 and Peripheral Edema (+1 lower extremity edema bilaterally)
Respiratory: Clear, Wheeze (negative), Rales (negative), Rhonchi (negative) and Non-Labored Respirations
GI: Soft, Distended, Non Tender and Normal Bowel Sounds
Neurology: Awake, Alert and Tremors (negative)
Skin: Warm and Dry
General: Respiratory Distress (negative), Comfortable, Chills (negative) and Sweats (negative)
Assessment
-
Assessment: 58-year-old female with a past medical history of cirrhosis, history of portal vein thrombosis, hypertension, depression, peripheral neuropathy and history of UTI who presents with syncope. Patient was at home and got up out of bed to
go to the bathroom when she passed out and fell and hit her head. She denies any preceding symptoms including no chest pain, shortness of breath, abnormal aura, abdominal pain or visual disturbances. 911 was called and then she came to the ER
where she felt very weak on arrival. She endorses shortness of breath but it is chronic and not bothersome to her. In the ER she was afebrile to 97.5 �F, pulse rate 107, breathing at 18 breaths/min, BP low at 77/54 and saturating 99% on room air.
Labs showed Hb 8.4, platelets 131, absolute eosinophils were elevated at 800, potassium level low at 3.2, magnesium 1.5, T. bili 3, troponin negative at <0.012, albumin level low at 2.2, urinalysis with no signs of UTI, UDS positive for marijuana,
and her alcohol level was negative. Blood culture x [address] head + CT cervical spine was collected, showing no acute intracranial findings and no fracture. A CT chest/abdomen/pelvis with IV contrast was performed showing no acute
posttraumatic abnormality in the chest, abdomen or pelvis. There was a left lower lobe consolidation with air bronchograms representing pneumonia versus atelectasis. In the ER she was given 2 L NS 0.9%, potassium chloride, rifaximin and magnesium
oxide. Unfortunately she remained hypotensive with SBP in the 70�80s and was admitted to the ICU for further care with leak patcher services consulted for additional management/recommendations.
Chronic conditions [employer]: Hypertension, alcoholic cirrhosis with esophageal varices, ascites, portal hypertension and history of hepatic encephalopathy, chronic back pain due to herniated disks, psoriatic arthritis, anxiety, history of alcohol use
disorder
Impression:
#Syncope - likely due to hypotension in setting of reduce PO intake with throat pain x 1 week
#Odynophagia/dysphagia x 1 week
#Moderate pelvic ascites which is increased compared to prior CT in February 2024
#Chronic anemia (baseline Hb 8.5�10g/dL)
#Chronic thrombocytopenia due to alcoholic cirrhosis (baseline platelet count: 70�105)
#Elevated eosinophil count (absolute eosinophil count on admission: 800 - she has a history of eosinophilia)
#Hypokalemia
#Hypomagnesemia
#Transaminitis with hyperbilirubinemia
#Elevated ammonia
#Hypoalbuminemia
#Alcohol associated liver disease with portal hypertension, splenorenal shunt, history of ascites, nonbleeding esophageal varices and hepatic encephalopathy
#History of alcohol use disorder (last drink in December 2023)
Plan:
- She remains hypotensive but is awake and following all commands; she does run low with baseline BP around 100/50
- Although she is hypotensive, I doubt that this is related to sepsis given normal WBC, urine is clean and this left lower lobe consolidation appears to be compressive atelectasis from a left-sided pleural effusion
- Empirically on antibiotics with Zosyn; follow-up blood cultures collected today (04/07/2024) --> if she remains afebrile with normal WBC over the next 1-2 days then would consider stopping antibiotics altogether or at the very least narrowing them
with short course overall
- Maintain MAP>65
- If she remains hypotensive with SBP<100mmHg then would start midodrine 5-10mg TID
- Start supplemental albumin for now to help reach albumin level >3g/dL; this will improve oncotic pressure and hopefully improve her hemodynamics
- I did evaluate her throat and I do not see any erythema or white patchiness on her palate or buccal mucosa however her tongue does appear slightly erythematous and white, hence I will start nystatin for suspected thrush
- Consult GI
- May need ENT consult as well
- Left pleural effusion appears too small for thora, but if she spikes a fever, remains hypotensive or deteriorates then we will consider diagnostic thoracentesis
- Last echo was in August 2017 which showed LVEF 60%; in the setting of bilateral lower extremity pitting edema with hypotension and syncope, cardiac etiology is a top differential
- Recheck echo and consider cardiology consult as she may need a Holter monitor versus implantable loop recorder to assess for an arrhythmia as a cause of her syncopal event
- Ammonia level is elevated at 117 --> continue lactulose and aim for 3�4 loose but formed bowel movements per day
- C/t trend ammonia level; trend LFTs and T. bili
- Consult GI, rajinder with odynophagia
- Continue with rifaximin
- She has worsening ascites --> may benefit from paracentesis
- Maintain SpO2 >90-94%
- Replete electrolytes with K>4, Mg>2
- Maintain euglycemia with goal BG 140-180
- Trend H/H and transfuse if needed to keep Hb>7g/dL; keep plt>20k, unless there is concern for bleeding then keep plt>50k
- prn nebulized bronchodilators - not currently bronchospastic
- Incentive spirometer encouraged 10x per hour for at least 4 hrs a day
- PT/OT with fall precautions
- PPI (home medication)
- DVT ppx: Start LMWH (assess INR before starting, however in the setting of cirrhosis, an elevated INR may not truly reflex her thrombotic state)
Given her hypotension with low threshold to start vasopressors, admit to the ICU for further management. [facility] services will continue to follow along while she remains in the ICU.
Total time spent today was 79 minutes for this encounter. Time includes reviewing laboratory test/imaging results, reviewing pertinent medical records, obtaining and reviewing medical history, performing an appropriate exam, ordering medications,
tests and procedures. Time also includes documentation of this encounter, coordinating patient care and communicating with other healthcare professionals. Total time does not include separately billed tests performed on this date of service.
Data:
CT chest/abdomen/pelvis with IV contrast 04/07/2024:
No acute posttraumatic abnormality seen throughout the chest, abdomen and pelvis.
Left lower lobe consolidation with air bronchograms which could represent atelectasis and/or pneumonia and small left pleural effusion.
No findings to suggest recent bilateral rib fracture, thoracic vertebral compression fracture, sternal fracture or lumbar vertebral compression fracture.
Left upper quadrant abdominal splenorenal varices again seen.
Small to moderate abdominal ascites, new and moderate pelvic ascites increased in comparison to prior CT.
Large gastric diverticulum again seen.
--- NOTE | 2024-04-07 20:30 | PTCARENOTE ---
Pt alert/oriented, CUMMINGS, 1x assist to bathroom. Afebrile. NSR on monitor. BP at baseline as per patient (80-90/50s, MAPs >65). Albumin ordered and given. Pulses palpable, +3 bilateral lower extremity edema. Room air, 95%, lungs clear to ausc. OOB to
BR for toileting needs, assist X1. Skin intact. Will continue to monitor.
[2024-04-07] MEDS: MAGNESIUM OXIDE 750 MG PO (21:07)
[2024-04-07] MEDS: MELATONIN 10 MG PO (21:07)
[2024-04-07] MEDS: ZOSYN 50 IV (21:08)
[2024-04-07] MEDS: KLOR-CON 40 MEQ PO (21:43)
[2024-04-07] MEDS: FLEXBUMIN 100 IV (21:43)
[2024-04-07] MEDS: MYCOSTATIN ORAL SUSPENSION 5 ML PO (21:43)
[2024-04-07 22:09] LABS: Phosphorus 3.5 mg/dl (2.5-4.5)
[2024-04-08] VITALS (21 sets, daily range): BP systolic 83–127; BP diastolic 48–80; BMI 32.7
--- NOTE | 2024-04-08 00:10 | PTCARENOTE ---
No change in previous assessment. Pt assisted to bathroom. Resting comfortably. Will monitor.
[2024-04-08] MEDS: DUPHALAC/CHRONULAC 30 GRAMS PO ×4 (01:00→17:37)
[2024-04-08] MEDS: ZOSYN 50 IV ×4 (01:47→17:38)
[2024-04-08] MEDS: FLEXBUMIN 100 IV (01:47)
[2024-04-08 05:30] LABS: Hematocrit 21.2 % (37.0-47.0); Hemoglobin 7.1 g/dL (12.0-16.0); Mean Corp Hgb Conc. 33.5 g/dL (33.0-37.0); Mean Corpuscular Volume 104.4 fL (81.0-99.0); Mean Platelet Volume 10.7 fL (7.4-10.4); Platelet Count 108 10^3/uL (130-400); Red Blood Cell Count 2.03 10^6/uL (4.20-5.40); Red Cell Dist. Width 17.5 % (11.5-14.5); White Blood Cell Count 5.9 10^3/uL (4.8-10.8)
[2024-04-08 05:44] LABS: INR 2.23; PT 24.8 Sec (11.4-14.6)
[2024-04-08 05:45] LABS: Ammonia 60 umol/L (9-30)
[2024-04-08 05:53] LABS: ALT (SGPT) 29 U/L (0-35); AST (SGOT) 41 U/L (14-36); Albumin 2.6 g/dl (3.5-5.0); Alkaline Phosphatase 65 U/L (38-126); Blood Urea Nitrogen 6 mg/dl (7-17); Calcium 8.1 mg/dl (8.4-10.2); Carbon Dioxide 20 mmol/L (22-30); Chloride 109 mmol/L (98-107); Direct Bilirubin 1.4 mg/dl (0.0-0.4); Estimated Creatinine Clearance 107 ml/min; Glucose 109 mg/dl (70-99); Magnesium 1.7 mg/dl (1.6-2.3); Potassium 3.6 mmol/L (3.5-5.1); Sodium 140 mmol/L (135-145); Total Bilirubin 3.1 mg/dl (0.2-1.3); Total Protein 5.6 g/dl (6.3-8.2); eGFR > 60.00
--- NOTE | 2024-04-08 08:15 | PTCARENOTE ---
Rec'd pt at 0700. Pt AAOx2-3, forgetful to time and situation. Follows commands, CUMMINGS. Monitor SR. SBP 80-100's. Lungs CTA, pox 95% RA. Abd large/round, +BS. OOB to bathroom with min assist of 1 and walker.
--- NOTE | 2024-04-08 08:18 | W.PN.INTV ---
Today's Communication / Plan
Recommendations
Monitor BP, and consider starting midodrine if she remains hypotensive with SBP <100
Of note, she does run chronically low with SBP approximately 100mmHg at baseline
Lactulose
Empiric antibiotics but consider stopping by tomorrow if she remains afebrile and leukocytosis remains absent
Up OOB as tolerated
Nystatin oral suspension
Trend H&H -if transfusion is performed, would only transfuse for Hb<7 as if she becomes too volume overloaded then she is at risk of her esophageal varices popping
GI on board with recommendations appreciated
Patient is stable for downgrade out of ICU to telemetry. No additional recommendations at this time. Machine Tool Dresser/Pulmonary service will now sign off. Please reconsult if there are any additional questions/concerns, or if patient's respiratory
status deteriorates.
Assessment
-
Assessment: 58-year-old female with a past medical history of cirrhosis, history of portal vein thrombosis, hypertension, depression, peripheral neuropathy and history of UTI who presents with syncope. Patient was at home and got up out of bed to
go to the bathroom when she passed out and fell and hit her head. She denies any preceding symptoms including no chest pain, shortness of breath, abnormal aura, abdominal pain or visual disturbances. 911 was called and then she came to the ER
where she felt very weak on arrival. She endorses shortness of breath but it is chronic and not bothersome to her. In the ER she was afebrile to 97.5 �F, pulse rate 107, breathing at 18 breaths/min, BP low at 77/54 and saturating 99% on room air.
Labs showed Hb 8.4, platelets 131, absolute eosinophils were elevated at 800, potassium level low at 3.2, magnesium 1.5, T. bili 3, troponin negative at <0.012, albumin level low at 2.2, urinalysis with no signs of UTI, UDS positive for marijuana,
and her alcohol level was negative. Blood culture x [address] head + CT cervical spine was collected, showing no acute intracranial findings and no fracture. A CT chest/abdomen/pelvis with IV contrast was performed showing no acute
posttraumatic abnormality in the chest, abdomen or pelvis. There was a left lower lobe consolidation with air bronchograms representing pneumonia versus atelectasis. In the ER she was given 2 L NS 0.9%, potassium chloride, rifaximin and magnesium
oxide. Unfortunately she remained hypotensive with SBP in the 70�80s and was admitted to the ICU for further care with passenger representative services consulted for additional management/recommendations.
Chronic conditions CAR DROPPER: Hypertension, alcoholic cirrhosis with esophageal varices, ascites, portal hypertension and history of hepatic encephalopathy, chronic back pain due to herniated disks, psoriatic arthritis, anxiety, history of alcohol use
disorder
Impression:
#Syncope - likely due to hypotension in setting of reduce PO intake with throat pain x 1 week
#Odynophagia/dysphagia x 1 week
#Moderate pelvic ascites which is increased compared to prior CT in February 2024
#Acute on chronic anemia (baseline Hb 8.5�10g/dL)
#Chronic thrombocytopenia due to alcoholic cirrhosis (baseline platelet count: 70�105)
#Elevated eosinophil count (absolute eosinophil count on admission: 800 - she has a history of eosinophilia)
#Hypokalemia
#Hypomagnesemia
#Transaminitis with hyperbilirubinemia
#Elevated ammonia
#Hypoalbuminemia
#Alcohol associated liver disease with portal hypertension, splenorenal shunt, history of ascites, nonbleeding esophageal varices and hepatic encephalopathy
#History of alcohol use disorder (last drink in December 2023)
Plan:
- Blood pressure is closer to baseline today although she still remains hypotensive, albeit she is awake and following all commands; she does run low with baseline BP around 100/50
- Although she is hypotensive, I doubt that this is related to sepsis given normal WBC, urine is clean and this left lower lobe consolidation appears to be compressive atelectasis from a left-sided pleural effusion
- Empirically on antibiotics with Zosyn; follow-up blood cultures collected today (04/07/2024) --> if she remains afebrile with normal WBC over the next 24 hrs then would consider stopping antibiotics altogether or at the very least narrowing them
with short course overall
- Maintain MAP>65
- If she remains hypotensive with SBP<100mmHg then would start midodrine 5-10mg TID
- s/p supplemental albumin for now to help reach albumin level >3g/dL; this will improve oncotic pressure and hopefully improve her hemodynamics
- I did evaluate her throat and I do not see any erythema or white patchiness on her palate or buccal mucosa however her tongue does appear slightly erythematous and white, hence I started nystatin for suspected thrush
- GI on board - recs appreciated
- May need ENT consult as well
- Left pleural effusion appears too small for thora, but if she spikes a fever, remains hypotensive or deteriorates then we will consider diagnostic thoracentesis
- Last echo was in August 2017 which showed LVEF 60%; in the setting of bilateral lower extremity pitting edema with hypotension and syncope, cardiac etiology is a top differential
- Recheck echo and consider cardiology consult as she may need a Holter monitor versus implantable loop recorder to assess for an arrhythmia as a cause of her syncopal event
- Ammonia level is elevated at 117 --> continue lactulose and aim for 3�4 loose but formed bowel movements per day
- C/t trend ammonia level; trend LFTs and T. bili
- Consult GI, rajinder with odynophagia
- Continue with rifaximin
- She has worsening ascites --> may benefit from paracentesis --> IR consulted
- Maintain SpO2 >90-94%
- Replete electrolytes with K>4, Mg>2
- Maintain euglycemia with goal BG 140-180
- Trend H/H and transfuse if needed to keep Hb>7g/dL; keep plt>20k, unless there is concern for bleeding then keep plt>50k
- prn nebulized bronchodilators - not currently bronchospastic
- Incentive spirometer encouraged 10x per hour for at least 4 hrs a day
- PT/OT with fall precautions
- PPI (home medication)
- DVT ppx: Start LMWH (although INR is elevated, in the setting of cirrhosis an elevated INR does not truly reflex her thrombotic state)
Patient is stable for downgrade out of ICU to telemetry. No additional recommendations at this time. Machine Tool Dresser/Pulmonary service will now sign off. Thank you for allowing us to be involved in the care of this patient. Please reconsult if there
are any additional questions/concerns, or if patient's respiratory status deteriorates.
Total time spent today was 36 minutes for this encounter. Time includes reviewing laboratory test/imaging results, reviewing pertinent medical records, obtaining and reviewing medical history, performing an appropriate exam, ordering medications,
tests and procedures. Time also includes documentation of this encounter, coordinating patient care and communicating with other healthcare professionals. Total time does not include separately billed tests performed on this date of service.
Data:
CT chest/abdomen/pelvis with IV contrast 04/07/2024:
No acute posttraumatic abnormality seen throughout the chest, abdomen and pelvis.
Left lower lobe consolidation with air bronchograms which could represent atelectasis and/or pneumonia and small left pleural effusion.
No findings to suggest recent bilateral rib fracture, thoracic vertebral compression fracture, sternal fracture or lumbar vertebral compression fracture.
Left upper quadrant abdominal splenorenal varices again seen.
Small to moderate abdominal ascites, new and moderate pelvic ascites increased in comparison to prior CT.
Large gastric diverticulum again seen.
Subjective Dataa
Subjective Data
Date of Service:
Date of Service: April 08, 2024
Chief Complaint: Machine Tool Dresser Follow Up
Subjective:
Patient was seen and evaluated today at bedside. She endorses a sore throat but it is better. She was able to tolerate eating yogurt this morning. Currently, heart rate 94, BP 91/69 and she is saturating 96% on room air. She denies chest pain,
CAMPA, nausea, fevers or chills. Afebrile overnight.
Review of Systems
General: Other (Negative unless mentioned above)
Objective Data
Data Reviewed
Vital Signs / I&O / Oxygen:
Vital Signs
Temp Pulse Resp BP Pulse Ox
98.2 F 93 20 98/65 96
04/08/24 07:30 04/08/24 09:15 04/08/24 09:15 04/08/24 09:09 04/08/24 09:15
Intake and Output
04/07/24 04/08/24 04/09/24
06:59 06:59 06:59
Intake Total 330 / 330
Output Total
Balance 329 / 329
SaO2 96
Physical Exam
General: Respiratory Distress (negative), Comfortable, Chills (negative) and Sweats (negative)
HEENT: Normocephalic, Anicteric and Moist Mucous Membranes
Cardiovascular: S1-S2 and Peripheral Edema (+1 lower extremity 1 bilaterally)
Respiratory: Wheeze (negative), Crackles (negative), Rhonchi (negative) and Non-Labored Respirations
GI: Soft, Distended, Non Tender and Normal Bowel Sounds
Neurology: Awake, Alert and Tremors (negative)
Skin: Warm, Dry, Cyanosis (negative) and Jaundice (negative)
Labs/Micro/Reports
Lab Data
04/08/24 05:02
04/08/24 05:02
Laboratory Results
04/07/24 04/08/24
21:38 05:02
PT Cancelled 24.8 H
INR Cancelled 2.23
APTT Cancelled
[2024-04-08] MEDS: MAGNESIUM OXIDE 750 MG PO ×2 (09:05→20:39)
[2024-04-08] MEDS: XIFAXAN 550 MG PO ×2 (09:06→20:39)
[2024-04-08] MEDS: MYCOSTATIN ORAL SUSPENSION 5 ML PO ×4 (09:06→22:06)
[2024-04-08] MEDS: PROTONIX 40 MG PO (09:06)
--- NOTE | 2024-04-08 11:52 | W.PN.GI.CBS2 ---
Today's Communication / Plan
-
continue current meds
tap early next week if more fluid
Assessment / Plan
-
This is a 58-year-old female with a past medical history of HTN, hyperlipidemia, psoriatic arthritis, marijuana use, alcohol use disorder with several recent admission since January with recently concern for alcoholic hepatitis/cirrhosis
(steroid were held with concern for UTI then out of Window for use with improved number). Liver disease was complicated by ascites requiring paracentesis, EGD with mild non bleeding varices and hepatic encephalopathy. She was last admitted in
Early March with and patient was to follow up at tertiary center with hepatology and Dr. Guerrero due in May. She now present for recurrent admission with weakness after fall. On admission noted with hbg 8.4 up fro 7.1 last admission, continued
macrocytosis , platelet 131, INR 2.33, improved LFT's with bili 3, AST 59, ALT 35, alk phos 96, albumin 2.2 and ammonia 117. She admits to last ETOH 6 months ago.
-HE with marked elevated ammonia level on admission
-ETOH hepatitis/cirrhosis with decompensation
-hypotension
-concern for PNA on admission
-ascites requiring paracentesis
-grade I EV
-Splenorenal Shunt/portal HTN
-hypotension
-coagulopathy
-hypoalbuminemia
PLAN:
Etiology of HE triggered by infection (? PNA) vs other- pt admits to some non compliance wit lactulose vs other
imaging as noted with fall
CT with possible PNA
IR was unable to tap ascites since inadequate fluid but currently on Zosyn her prior tap was negative for SBP
cont Lactulose 30 grams q 6 and Xifaxan BID
follow MELD labs -- current MELD 3.0 on admission 24 down from 26 last admission
2g Na+ restricted regular diet,
counseled pt on continued ETOH abstinence, need for hepatology follow up and need for compliance with medication
Avoidance of all NSAIDs
Agree with Folic Acid
Pt due follow up with Dr. Guerrero 05/23/24 at 1:30 PM.
Subjective
Subjective
Date of Service: April 08, 2024
Patient is more awake today and oriented to place and person. Complains of mild odynophagia symptoms no abdominal pain, no melena
Objective
Data Reviewed
Laboratory Data:
Laboratory Results
04/08/24 05:02
04/08/24 05:02
Laboratory Results
PT 24.8 Sec (11.4-14.6) H 04/08/24 05:02
INR 2.23 04/08/24 05:02
APTT Cancelled 04/07/24 21:38
Phosphorus 3.0 mg/dl (2.5-4.5) 04/08/24 05:02
Magnesium 1.7 mg/dl (1.6-2.3) 04/08/24 05:02
Total Bilirubin 3.1 mg/dl (0.2-1.3) H 04/08/24 05:02
AST 41 U/L (14-36) H 04/08/24 05:02
ALT 29 U/L (0-35) 04/08/24 05:02
Alkaline Phosphatase 65 U/L (38-126) 04/08/24 05:02
Lipase 232 U/L (23-300) 04/07/24 08:30
Vital Signs and I&O:
Vital Signs
Temp Pulse Resp BP Pulse Ox
98.2 F 91 16 98/62 94
04/08/24 07:30 04/08/24 11:45 04/08/24 11:45 04/08/24 11:00 04/08/24 11:45
I&O
04/07/24 04/08/24 04/09/24
06:59 06:59 06:59
Intake Total 330 / 330
Output Total
Balance 329 / 329
Physical Exam
Physical Exam
Cardiology: Normal Sinus Rhythm
Pulmonary: Clear
GI: Soft, Distended (Mildly distended), Non Tender and Normal Bowel Sounds
--- NOTE | 2024-04-08 12:00 | PTCARENOTE ---
No changes in assessment.
--- NOTE | 2024-04-08 14:05 | W.PN.HOSP.TC ---
Today's Communication/Plan
-
possible paracentesis again this week
monitor BPs - may need ivf prn;s/p albumin
cont empiric abx
lactulose/rifaximin
Continue on telemetry, downgrade to IMU
Assessment / Plan
Assessment / Plan
HEENT: Normocephalic and Anicteric
Cardiovascular: S1/S2 and Peripheral Edema (+1 lower extremity edema bilaterally)
Respiratory: Clear, Wheeze (negative), Rales (negative), Rhonchi (negative) and Non-Labored Respirations
GI: GI: Soft, Distended (Mildly distended), Non Tender and Normal Bowel Sounds
Neurology: Awake, Alert and Tremors (negative)
Skin: Warm and Dry
General: Respiratory Distress (negative), Comfortable, Chills (negative) and Sweats (negative)
#Alcohol associated liver disease with portal hypertension, splenorenal shunt, history of ascites, nonbleeding esophageal varices and hepatic encephalopathy
#Ascites
#Alcoholic hepatitis/cirrhosis with decompensation
#Hyperammonemia
#Transaminitis
� IR unable to do perform adequate paracentesis, follow-up with resuscitation and possible repeat attempt at tapped early in the week to evaluate SBP
� Continue lactulose and Xifaxan
� Follow-up MELD labs
� 2 g sodium restricted regular diet
� Alcohol abstinence
�avoid NSAIDs
� Folic acid
#Pneumonia
Continue antibiotics
�Follow-up blood cultures
#Acute metabolic encephalopathy
# Syncope
#Fall
� Following commands, has baseline lower blood pressures
� See plan for alcohol associated liver disease and pneumonia
�Possibly triggered by questionable infection including pneumonia versus noncompliance with lactulose
#Borderline hypotension
� Continue empiric antibiotics
� Follow-up cultures
� Status post albumin
#Odynophagia
# Started on nystatin for suspected thrush
# GI on board
#Left pleural effusion
� Appears small for pleural
� Repeat echocardiogram and consider cardiology consult depending echocardiogram as she may need Holter monitor versus loop to assess syncopal event
HX Sono suggest dilated CBD of 1 cm but f/u MRI abd NEG for acute abnormalities
F/u GI recs
Chronic macrocytic anemia
-No overt blood loss: EGD noted 03/06
-Maintain on empiric Protonix 40 mg/d
#Coagulopathy
#Supratherapeutic INR
I suspect this is synthetic and function due to decompensated cirrhosis
� Continue to monitor
Hypokalemia s/p KCL 40 x1
Hypomagnesemia s/p PO 500 mg
- Trend Mg and K in am repletes needed
HX Marijuana use
-Patient urine drug screen positive for marijuana
DVT proph: HSQ
Full Code
Can be downgraded
Anticipated Discharge: 24 - 48 hours
Subjective/Interval History
-
Date of Service: April 08, 2024
No acute events overnight patient
Objective Data
-
Labs:
Laboratory Results
04/08/24
05:02
WBC 5.9
Hgb 7.1 L
Hct 21.2 L
Plt Count 108 L
PT 24.8 H
INR 2.23
Sodium 140
Potassium 3.6
Chloride 109 H
Carbon Dioxide 20 L
BUN 6 L
Creatinine 0.6
Glucose 109 H
Calcium 8.1 L
Total Bilirubin 3.1 H
AST 41 H
ALT 29
Alkaline Phosphatase 65
Vital Signs:
Vital Signs
Temp Pulse Resp BP Pulse Ox
98.1 F 94 19 84/55 95
04/08/24 11:30 04/08/24 12:15 04/08/24 12:15 04/08/24 12:00 04/08/24 12:15
I&O
04/07/24 04/08/24 04/09/24
06:59 06:59 06:59
Intake Total 330 / 330 100 / 100
Output Total
Balance 329 / 329 100 / 100
Review of Systems
-
History Source: Patient
All other systems: Not reviewed unless documented
Data Reviewed
-
CT Scan: Image personally visualized and interpreted and Report Reviewed by me
Labs: Labs Reviewed by me
[2024-04-08] MEDS: HEPARIN 5000 UNITS SC (16:24)
--- NOTE | 2024-04-08 16:46 | PTCARENOTE ---
No changes in assessment. Pt sleeping on and off, remains forgetful at times. Ambulates to bathroom with standby assist and walker.
[2024-04-08] MEDS: KLOR-CON 40 MEQ PO (18:31)
[2024-04-08] MEDS: TIGAN 100 MG IM (20:05)
--- NOTE | 2024-04-08 20:47 | PTCARENOTE ---
Pt received awake alert and oriented. Occasional forgetfulness. Pt vomited at end of dayshift and again during change of shift. LIBRARY MANAGER contacted and pt med with [facility]. Will continue to monitor.
--- NOTE | 2024-04-08 21:57 | PTCARENOTE ---
Pt transferred to room 417 via w/c after report given to Brittany WALDEN.
[2024-04-09] VITALS (8 sets, daily range): BP systolic 80–126; BP diastolic 48–80; PULSE 96–106; O2SAT 96; BMI 32.3
[2024-04-09] MEDS: DUPHALAC/CHRONULAC 30 GRAMS PO ×5 (00:24→23:04)
[2024-04-09] MEDS: ZOSYN 50 IV ×5 (00:25→23:06)
[2024-04-09] MEDS: HEPARIN 5000 UNITS SC ×4 (00:25→23:06)
[2024-04-09 07:56] LABS: Ammonia 62 umol/L (9-30)
[2024-04-09 08:06] LABS: Hematocrit 22.9 % (37.0-47.0); Hemoglobin 7.5 g/dL (12.0-16.0); Mean Corp Hgb Conc. 32.8 g/dL (33.0-37.0); Mean Corpuscular Hgb 34.6 pg (27.0-31.0); Mean Corpuscular Volume 105.5 fL (81.0-99.0); Mean Platelet Volume 10.3 fL (7.4-10.4); Platelet Count 105 10^3/uL (130-400); Red Blood Cell Count 2.17 10^6/uL (4.20-5.40); Red Cell Dist. Width 18.5 % (11.5-14.5)
[2024-04-09 08:10] LABS: INR 2.33; PT 25.6 Sec (11.4-14.6)
[2024-04-09 08:25] LABS: ALT (SGPT) 28 U/L (0-35); AST (SGOT) 43 U/L (14-36); Albumin 2.3 g/dl (3.5-5.0); Alkaline Phosphatase 61 U/L (38-126); Blood Urea Nitrogen 3 mg/dl (7-17); Calcium 8.1 mg/dl (8.4-10.2); Carbon Dioxide 19 mmol/L (22-30); Chloride 114 mmol/L (98-107); Estimated Creatinine Clearance 107 ml/min; Glucose 127 mg/dl (70-99); Magnesium 1.8 mg/dl (1.6-2.3); Phosphorus 3.3 mg/dl (2.5-4.5); Potassium 3.3 mmol/L (3.5-5.1); Sodium 139 mmol/L (135-145); Total Bilirubin 3.8 mg/dl (0.2-1.3); Total Protein 5.3 g/dl (6.3-8.2); eGFR > 60.00
[2024-04-09] MEDS: XIFAXAN 550 MG PO ×2 (08:40→20:39)
[2024-04-09] MEDS: MAGNESIUM OXIDE 750 MG PO ×2 (08:40→20:42)
[2024-04-09] MEDS: PROTONIX 40 MG PO (08:40)
[2024-04-09] MEDS: MYCOSTATIN ORAL SUSPENSION 5 ML PO ×4 (08:40→22:22)
--- NOTE | 2024-04-09 13:13 | W.PN.GI.CBS2 ---
Today's Communication / Plan
-
started aldactone
potassium PO
US in AM
Assessment / Plan
-
This is a 58-year-old female with a past medical history of HTN, hyperlipidemia, psoriatic arthritis, marijuana use, alcohol use disorder with several recent admission since January with recently concern for alcoholic hepatitis/cirrhosis
(steroid were held with concern for UTI then out of Window for use with improved number). Liver disease was complicated by ascites requiring paracentesis, EGD with mild non bleeding varices and hepatic encephalopathy. She was last admitted in
Early March with and patient was to follow up at tertiary center with hepatology and Dr. Cesar araujo in May. She now present for recurrent admission with weakness after fall. On admission noted with hbg 8.4 up fro 7.1 last admission, continued
macrocytosis , platelet 131, INR 2.33, improved LFT's with bili 3, AST 59, ALT 35, alk phos 96, albumin 2.2 and ammonia 117. She admits to last ETOH 6 months ago.
-HE with marked elevated ammonia level on admission
-ETOH hepatitis/cirrhosis with decompensation
-hypotension
-concern for PNA on admission
-ascites requiring paracentesis
-grade I EV
-Splenorenal Shunt/portal HTN
-hypotension
-coagulopathy
-hypoalbuminemia
PLAN:
Etiology of HE triggered by infection (? PNA) vs other- pt admits to some non compliance wit lactulose vs other
CT with possible PNA
IR was unable to tap ascites since inadequate fluid but currently on Zosyn her prior tap was negative for SBP
cont Lactulose 30 grams q 6 and Xifaxan BID
follow MELD labs -- current MELD 3.0 on admission 24 down from 26 last admission
2g Na+ restricted regular diet,
counseled pt on continued ETOH abstinence, need for hepatology follow up and need for compliance with medication
Avoidance of all NSAIDs
Agree with Folic Acid
She is on nystatin for possible thrush
She did have an episode of vomiting last night her CT on admission was negative for obstruction if has further episodes will get an obstruction series
Will repeat ultrasound tomorrow to see if she needs a tap
Started on Aldactone 100 mg daily also gave her potassium supplement for hypokalemia
Once her potassium is repleted will start her on low-dose of Lasix
Pt due follow up with Dr. Guerrero 05/23/24 at 1:30 PM.
Subjective
Subjective
Date of Service: April 09, 2024
Odynophagia has improved but she had an episode of vomiting last night. Mentation is much improved she is awake alert oriented x 3 denies abdominal pain currently
Objective
Data Reviewed
Laboratory Data:
Laboratory Results
04/09/24 07:33
04/09/24 07:33
Laboratory Results
PT 25.6 Sec (11.4-14.6) H 04/09/24 07:33
INR 2.33 04/09/24 07:33
APTT Cancelled 04/07/24 21:38
Phosphorus 3.3 mg/dl (2.5-4.5) 04/09/24 07:33
Magnesium 1.8 mg/dl (1.6-2.3) 04/09/24 07:33
Total Bilirubin 3.8 mg/dl (0.2-1.3) H 04/09/24 07:33
AST 43 U/L (14-36) H 04/09/24 07:33
ALT 28 U/L (0-35) 04/09/24 07:33
Alkaline Phosphatase 61 U/L (38-126) 04/09/24 07:33
Lipase 232 U/L (23-300) 04/07/24 08:30
Vital Signs and I&O:
Vital Signs
Temp Pulse Resp BP Pulse Ox
97.6 F 109 18 125/68 96
04/09/24 11:20 04/09/24 11:20 04/09/24 11:20 04/09/24 11:20 04/09/24 11:20
I&O
04/08/24 04/09/24 04/10/24
06:59 06:59 06:59
Intake Total 330 / 330 440 / 440
Output Total 200 / 200
Balance 329 / 329 440 / 440 -200 / -200
Physical Exam
Physical Exam
Cardiology: Normal Sinus Rhythm
GI: Soft, Distended (mildly distended), Non Tender and Normal Bowel Sounds
[2024-04-09] MEDS: KCL ELIXIR 40 MEQ PO (13:39)
--- NOTE | 2024-04-09 14:01 | W.PN.HOSP.TC ---
Today's Communication/Plan
-
aldactone
us in the AM
Abx
ECHO
Assessment / Plan
Assessment / Plan
HEENT: Normocephalic and Anicteric
Cardiovascular: S1/S2 and Peripheral Edema (+1 lower extremity edema bilaterally)
Respiratory: Clear, Wheeze (negative), Rales (negative), Rhonchi (negative) and Non-Labored Respirations
GI: GI: Soft, Distended (Mildly distended), Non Tender and Normal Bowel Sounds
Neurology: Awake, Alert and Tremors (negative)
Skin: Warm and Dry
General: Respiratory Distress (negative), Comfortable, Chills (negative) and Sweats (negative)
#Alcohol associated liver disease with portal hypertension, splenorenal shunt, history of ascites, nonbleeding esophageal varices and hepatic encephalopathy
#Ascites
#Alcoholic hepatitis/cirrhosis with decompensation
#Hyperammonemia
#Transaminitis
� IR unable to do perform adequate paracentesis, follow-up with resuscitation and possible repeat attempt at tapped early in the week to evaluate SBP
� Continue lactulose and Xifaxan
� Follow-up MELD labs
� 2 g sodium restricted regular diet
� Alcohol abstinence
�avoid NSAIDs
� Folic acid
-Start Aldactone
� Ultrasound in a.m. for possible paracentesis
#Pneumonia
Continue antibiotics
�Follow-up blood cultures
#Acute metabolic encephalopathy
# Syncope
#Fall
� Following commands, has baseline lower blood pressures
� See plan for alcohol associated liver disease and pneumonia
�Possibly triggered by questionable infection including pneumonia versus noncompliance with lactulose
#Borderline hypotension
� Continue empiric antibiotics
� Follow-up cultures
� Status post albumin
#Odynophagia
-Started on nystatin for suspected thrush
- GI on board
#Left pleural effusion
� Appears small for pleural
� Repeat echocardiogram and consider cardiology consult depending echocardiogram as she may need Holter monitor versus loop to assess syncopal event
HX Sono suggest dilated CBD of 1 cm but f/u MRI abd NEG for acute abnormalities
F/u GI recs
Chronic macrocytic anemia
-No overt blood loss: EGD noted 03/06
-Maintain on empiric Protonix 40 mg/d
#Coagulopathy
#Supratherapeutic INR
I suspect this is synthetic and function due to decompensated cirrhosis
� Continue to monitor
Hypokalemia s/p KCL 40 x1
Hypomagnesemia s/p PO 500 mg
- Trend Mg and K in am
-replete if needed
HX Marijuana use
-Patient urine drug screen positive for marijuana
DVT proph: HSQ
Full Code
Anticipated Discharge: > 48 hours
Subjective/Interval History
-
Date of Service: April 09, 2024
ep of vomiting today
Objective Data
-
Labs:
Laboratory Results
04/09/24
07:33
WBC 6.0
Hgb 7.5 L
Hct 22.9 L
Plt Count 105 L
PT 25.6 H
INR 2.33
Sodium 139
Potassium 3.3 L
Chloride 114 H
Carbon Dioxide 19 L
BUN 3 L
Creatinine 0.6
Glucose 127 H
Calcium 8.1 L
Total Bilirubin 3.8 H
AST 43 H
ALT 28
Alkaline Phosphatase 61
Vital Signs:
Vital Signs
Temp Pulse Resp BP Pulse Ox
97.6 F 109 18 125/68 96
04/09/24 11:20 04/09/24 11:20 04/09/24 11:20 04/09/24 11:20 04/09/24 11:20
I&O
04/08/24 04/09/24 04/10/24
06:59 06:59 06:59
Intake Total 330 / 330 440 / 440
Output Total 200 / 200
Balance 329 / 329 440 / 440 -200 / -200
Review of Systems
-
History Source: Patient
All other systems: Not reviewed unless documented
Physical Exam
-
General: No Apparent Distress and Comfortable
HEENT: Negative Oxygen
Respiratory: Clear to Auscultation
Cardiac: Regular Rhythm and S1/S2; Negative Murmur or Rub
GI: Soft, Normal Bowel Sounds and Distended
Musculoskeletal: Edema, Right Lower Extrem and Edema, Left Lower Extrem
Neuro: Awake, Alert, Oriented, No Motor Deficits and Nonfocal/Grossly Intact
Psych: Calm
Data Reviewed
-
CT Scan: Image personally visualized and interpreted and Report Reviewed by me
Labs: Labs Reviewed by me
--- NOTE | 2024-04-09 15:37 | CM ---
Initial assessment was completed with pt at bedside and follow up call with mother, Yvrose.
Pt is a 58yr old female admitted after a fall at home. Pt has a hx of ETOH.
Pt is oriented with some forgetfulness. Per family, her cognition has improved over the last few months overall but she still does have periods of increased confusion.
Pt lives in a 1st floor apt, 2 steps to enter, alone. Per mother, she spends most of her days at her house and then will go back to her apartment for nights. Mother says she is mostly indep with mobility and sometimes uses a cane. Pt is not supposed
to be driving, but did drive herself to the hospital this admission.
Pt is currently going 2x weekly for PT at and per mom, will be getting increased to 3x.
Per mom, she does not expect need for VN or SNF and would like to dc with outpatient.
PCP; Nichol Stokes
Pharm; [facility]
PLAN; dc to home with Outpatient
Per Pt and family, Yvrose should be the Contact used during hospital stay # [phone]
[2024-04-09] MEDS: MELATONIN 3 MG PO (22:22)
[2024-04-10 03:15] VITALS: BP 110/71
[2024-04-10] MEDS: DUPHALAC/CHRONULAC 30 GRAMS PO ×2 (05:16→12:41)
[2024-04-10] MEDS: ZOSYN 50 IV (05:16)
[2024-04-10 05:24] VITALS: BMI 32.0
[2024-04-10 07:32] LABS: Hemoglobin 7.2 g/dL (12.0-16.0); Mean Corp Hgb Conc. 34.3 g/dL (33.0-37.0); Mean Corpuscular Hgb 35.6 pg (27.0-31.0); Mean Platelet Volume 10.6 fL (7.4-10.4); Platelet Count 100 10^3/uL (130-400); Red Blood Cell Count 2.02 10^6/uL (4.20-5.40); Red Cell Dist. Width 18.6 % (11.5-14.5)
[2024-04-10 07:38] LABS: INR 2.41; PT 26.3 Sec (11.4-14.6)
[2024-04-10 07:45] LABS: Ammonia 40 umol/L (9-30)
[2024-04-10 07:48] VITALS: BP 126/86
[2024-04-10 08:00] LABS: ALT (SGPT) 27 U/L (0-35); AST (SGOT) 37 U/L (14-36); Alkaline Phosphatase 60 U/L (38-126); Blood Urea Nitrogen 3 mg/dl (7-17); Carbon Dioxide 20 mmol/L (22-30); Chloride 113 mmol/L (98-107); Estimated Creatinine Clearance 106 ml/min; Glucose 115 mg/dl (70-99); Magnesium 1.7 mg/dl (1.6-2.3); Potassium 3.4 mmol/L (3.5-5.1); Sodium 139 mmol/L (135-145); Total Bilirubin 3.5 mg/dl (0.2-1.3); eGFR > 60.00
[2024-04-10 08:20] VITALS: BP 115/79; BP_SYST 98
[2024-04-10 09:00] VITALS: BP 116/81
[2024-04-10] MEDS: MAGNESIUM OXIDE 750 MG PO (10:04)
[2024-04-10] MEDS: MYCOSTATIN ORAL SUSPENSION 5 ML PO (10:04)
--- NOTE | 2024-04-10 10:04 | W.PN.HOSP.TC ---
Today's Communication/Plan
-
Await ascitic fluid Gram stain
Stop antibiotics
Discharge
Assessment / Plan
Assessment / Plan
Gen-AAOx3, NAD
HEENT-NC, AT, anicteric, clear oral mm
Neck-supple
CV-reg, no M, +S1/S2
Lungs-clear B/L
Abd-soft, NT, ND
Ext-no edema
Musculoskeletal-no cyanosis, clubbing
Skin-warm and dry
Neuro-grossly non-focal
Psych-calm, cooperative
#Alcohol associated liver disease with portal hypertension, splenorenal shunt, history of ascites, nonbleeding esophageal varices and hepatic encephalopathy
#Ascites
#Alcoholic hepatitis/cirrhosis with decompensation
#Hyperammonemia
#Transaminitis
� IR performed paracentesis today, 500 cc removed. Gram stain pending. Clinically doubt SBP. Discussed with GI.
� Continue lactulose and Xifaxan
� Follow-up MELD labs
� 2 g sodium restricted regular diet
� Alcohol abstinence
�avoid NSAIDs
� Folic acid
-Start Aldactone
� Ultrasound in a.m. for possible paracentesis
No clinical evidence of pneumonia. Procalcitonin normal. Stop antibiotics.
Acute metabolic encephalopathy
Unclear if truly she syncopized prior to admission.
Fall
� Following commands, has baseline lower blood pressures. Not orthostatic from supine to sitting.
� See plan for alcohol associated liver disease and pneumonia
�Possibly triggered by questionable infection including pneumonia versus noncompliance with lactulose
#Borderline hypotension
� Continue empiric antibiotics
� Follow-up cultures
� Status post albumin
#Odynophagia
-Started on nystatin for suspected thrush
- GI on board
#Left pleural effusion
� Appears small for pleural
� Repeat echocardiogram and consider cardiology consult depending echocardiogram as she may need Holter monitor versus loop to assess syncopal event
HX Sono suggest dilated CBD of 1 cm but f/u MRI abd NEG for acute abnormalities
F/u GI recs
Chronic macrocytic anemia
-No overt blood loss: EGD noted 03/06
-Maintain on empiric Protonix 40 mg/d
#Coagulopathy
#Supratherapeutic INR
I suspect this is synthetic and function due to decompensated cirrhosis
� Continue to monitor
Hypokalemia s/p KCL 40 x1
Hypomagnesemia s/p PO 500 mg
- Trend Mg and K in am
-replete if needed
HX Marijuana use
-Patient urine drug screen positive for marijuana
DVT proph: HSQ
Full Code
Dispo -potential discharge later today if she remains stable. Discussed with GI service. Outpatient follow-up.
35 minutes spent in discharge process.
Anticipated Discharge: Today
Subjective/Interval History
-
Date of Service: April 10, 2024
Patient seen and examined. Overall feeling better. No complaints.
Objective Data
-
Labs:
Laboratory Results
04/10/24 04/10/24
07:11 07:12
WBC 7.0
Hgb 7.2 L
Hct 21.0 L
Plt Count 100 L
PT 26.3 H
INR 2.41
Sodium 139
Potassium 3.4 L
Chloride 113 H
Carbon Dioxide 20 L
BUN 3 L
Creatinine 0.6
Glucose 115 H
Calcium 8.0 L
Total Bilirubin 3.5 H
AST 37 H
ALT 27
Alkaline Phosphatase 60
Vital Signs:
Vital Signs
Temp Pulse Resp BP Pulse Ox
98.2 F 98 18 116/81 96
04/10/24 08:20 04/10/24 09:00 04/10/24 09:00 04/10/24 09:00 04/10/24 08:20
I&O
04/09/24 04/10/24 04/11/24
06:59 06:59 06:59
Intake Total 440 / 440 1060 / 1060
Output Total 200 / 200
Balance 440 / 440 860 / 860
Review of Systems
-
History Source: Patient
All other systems: Reviewed and negative
[2024-04-10] MEDS: HEPARIN 5000 UNITS SC (10:05)
[2024-04-10] MEDS: ALDACTONE 100 MG PO (10:05)
[2024-04-10] MEDS: PROTONIX 40 MG PO (10:05)
[2024-04-10] MEDS: XIFAXAN 550 MG PO (10:06)
[2024-04-10] MEDS: KCL ELIXIR 40 MEQ PO (10:06)
--- NOTE | 2024-04-10 10:10 | CM ---
Addendum entered by Ana Luisa Pearl 04/10/24 15:52:
CM updated patient mother- discharge contact and confirmed that the script was in the chart with nursing. CM will continue to follow for discharge planning needs.
Plan; home with outpatient therapy.
Original Note:
Patient seen at bedside. Patient states that she just got back from testing. Therapy assessment recommending outpatient PT. Patient chart indicated that she was going to [facility] prior to admission. Physician completed script for outpatient
therapy and placed on chart. CM will continue to follow for discharge planning needs.
Plan; home with outpatient therapy
--- NOTE | 2024-04-10 10:12 | W.DS.TRANS ---
DC Summary - [employer]
-
Discharge Instructions:
Discharge Diagnosis/Procedures Hepatic encephalopathy, hypokalemia, ascites
Diet 2 Gram Sodium
Activity As tolerated
Driving Restrictions Not until seen by your Dr
Bathing Restrictions None
Other Services PT
Instructions:
Stand-Alone Forms:
Changes to Home Medications: No
Discharge Medications:
DC Medications w/original date entered in [employer]
tizanidine 2 mg tablet 2 mg PO HS Muscle Spasms 02/06/24
folic acid 1 mg tablet 1 mg PO DAILY #30 tabs 02/11/24
magnesium oxide 750 mg (1.5 x 500 mg magnesium) PO BID #60 tabs 02/11/24
pantoprazole 40 mg tablet,delayed release 40 mg PO DAILY #30 tabs 03/07/24
lactulose 20 gram/30 mL oral solution 30 g (45 mL) PO TID #3,000 mL 04/07/24
melatonin 3 mg tablet 3 mg PO HSPRN PRN sleep 04/07/24
rifaximin 550 mg tablet (Xifaxan) 550 mg PO BID #60 tabs 04/07/24
nystatin 100,000 unit/mL oral suspension 5 ml PO QID #60 mL 04/10/24
potassium chloride 20 mEq tablet,extended release(part/cryst) 20 meq PO BID #10 tabs 04/10/24
spironolactone 50 mg tablet 100 mg (2 x 50 mg) PO DAILY #60 tabs 04/10/24
Home Medication Changes
Pending Results: No
--- NOTE | 2024-04-10 10:23 | W.PN.GI.CBS2 ---
Today's Communication / Plan
-
OK for DC if neg for SBP
needs OP BMP in 3 days started on aldactone and may need to DC Potassium supplements if repeat K is ok
Assessment / Plan
-
This is a 58-year-old female with a past medical history of HTN, hyperlipidemia, psoriatic arthritis, marijuana use, alcohol use disorder with several recent admission since January with recently concern for alcoholic hepatitis/cirrhosis
(steroid were held with concern for UTI then out of Window for use with improved number). Liver disease was complicated by ascites requiring paracentesis, EGD with mild non bleeding varices and hepatic encephalopathy. She was last admitted in
Early March with and patient was to follow up at tertiary center with hepatology and Dr. Cesar araujo in May. She now present for recurrent admission with weakness after fall. On admission noted with hbg 8.4 up fro 7.1 last admission, continued
macrocytosis , platelet 131, INR 2.33, improved LFT's with bili 3, AST 59, ALT 35, alk phos 96, albumin 2.2 and ammonia 117. She admits to last ETOH 6 months ago.
-HE with marked elevated ammonia level on admission
-ETOH hepatitis/cirrhosis with decompensation
-hypotension
-concern for PNA on admission
-ascites requiring paracentesis
-grade I EV
-Splenorenal Shunt/portal HTN
-hypotension
-coagulopathy
-hypoalbuminemia
PLAN:
Etiology of HE triggered by infection (? PNA) vs other- pt admits to some non compliance wit lactulose vs other
CT with ? PNA got 1 dose Zosyn
cont Lactulose 30 grams q 6 and Xifaxan BID
follow MELD labs -- current MELD 3.0 on admission 24 down from 26 last admission
2g Na+ restricted regular diet,
counseled pt on continued ETOH abstinence, need for hepatology follow up and need for compliance with medication
Avoidance of all NSAIDs
Agree with Folic Acid
She is on nystatin for possible thrush
s/p repeat ultrasound with tap 04/10 await cell count
Started on Aldactone 100 mg daily also on potassium supplement for hypokalemia
Once her potassium is repleted will start her on low-dose of Lasix
OK for DC if tap neg for SBP
Pt due follow up with Dr. Guerrero 05/23/24 at 1:30 PM.
Subjective
Subjective
Date of Service: April 10, 2024
Awake and oriented
She had paracenteses today she says that they drained about 500 mL counts are pending
Objective
Data Reviewed
Laboratory Data:
Laboratory Results
04/10/24 07:12
04/10/24 07:11
Laboratory Results
PT 26.3 Sec (11.4-14.6) H 04/10/24 07:11
INR 2.41 04/10/24 07:11
APTT Cancelled 04/07/24 21:38
Phosphorus 3.3 mg/dl (2.5-4.5) 04/09/24 07:33
Magnesium 1.7 mg/dl (1.6-2.3) 04/10/24 07:11
Total Bilirubin 3.5 mg/dl (0.2-1.3) H 04/10/24 07:11
AST 37 U/L (14-36) H 04/10/24 07:11
ALT 27 U/L (0-35) 04/10/24 07:11
Alkaline Phosphatase 60 U/L (38-126) 04/10/24 07:11
Lipase 232 U/L (23-300) 04/07/24 08:30
Vital Signs and I&O:
Vital Signs
Temp Pulse Resp BP Pulse Ox
98.2 F 98 18 116/81 96
04/10/24 08:20 04/10/24 09:00 04/10/24 09:00 04/10/24 09:00 04/10/24 08:20
I&O
1204/10/24 04/11/24
06:59 06:59 06:59
Intake Total 440 / 440 1060 / 1060
Output Total 200 / 200
Balance 440 / 440 860 / 860
Physical Exam
Physical Exam
Cardiology: Normal Sinus Rhythm
Pulmonary: Clear
GI: Soft, Distended (less distended), Non Tender and Normal Bowel Sounds
[2024-04-10 11:04] LABS: Body Fluid Albumin < 1.0 g/dl; Body Fluid Amylase < 30 U/L; Body Fluid Protein < 2.0 g/dl
[2024-04-10 11:38] LABS: Body Fluid WBC 220 /CUMM
[2024-04-10 11:53] LABS: Body Fluid Second Tech EF
[2024-04-10 12:05] VITALS: BP 125/78
[2024-04-10] MEDS: MYCOSTATIN ORAL SUSPENSION PO (13:51)
[2024-04-10 16:07] VITALS: BP 127/88
== END 2024-04-10 18:39 | disposition home or self-care (01) | DRG 432 ==
LOC: 4 WEST ACU 15:57
PROVIDERS: Internal Medicine; Radiology Vascular & Interventional Radiology; ADMITTING PHYSICIAN Internal Medicine; ATTENDING PHYSICIAN Hospitalist; CONSULT PHYSICIAN Internal Medicine Critical Care Medicine; CONSULT PHYSICIAN Internal Medicine Gastroenterology; EMERGENCY PHYSICIAN Emergency Medicine; FAMILY PHYSICIAN Nurse Practitioner Adult Health
PROC: 0W9G3ZZ Drainage of Peritoneal Cavity, Percutaneous Approach (ICD-10-PCS; 2024-04-10)
DX: K70.31 Alcoholic cirrhosis of liver with ascites (principal); G93.41 Metabolic encephalopathy; D68.9 Coagulation defect, unspecified; J90 Pleural effusion, not elsewhere classified; F17.200 Nicotine dependence, unspecified, uncomplicated; K70.11 Alcoholic hepatitis with ascites; D53.9 Nutritional anemia, unspecified; I95.89 Other hypotension; I10 Essential (primary) hypertension; E87.6 Hypokalemia; E83.42 Hypomagnesemia
CPT/HCPCS: 49083; 70450; 71260; 72125; 74177; 80053; 80306; 81003; 82042; 82077; 82140; 82150; 82248; 82550; 83690; 83735; 84100; 84145; 84157; 84484; 85025; 85027; 85610; 86850; 86900; 86901; 87015; 87040; 87070; 87205; 89051; 93005; 93306; 96360; 96361; 97162; 97166; 99285; P9047; Q9967

== ENCOUNTER 2024-05-01 11:10 | Outpatient (RCR) | payer BC, SELFPAY | END 2024-05-01 23:59 | disposition home or self-care (01) | LOC: RPT 11:10 | PROVIDERS: ATTENDING PHYSICIAN Nurse Practitioner Adult Health | DX: R53.81 Other malaise (principal); M62.81 Muscle weakness (generalized); Z73.6 Limitation of activities due to disability | CPT/HCPCS: 97110; 97112 ==

== ENCOUNTER → 2024-05-02 10:56 | Outpatient (REF) | payer BC, SELFPAY | LOC: RAD 10:56 | PROVIDERS: ATTENDING PHYSICIAN Student in an Organized Health Care Education/Training Program; FAMILY PHYSICIAN Nurse Practitioner Adult Health | DX: K70.9 Alcoholic liver disease, unspecified (principal) | CPT/HCPCS: 76700; 93975 ==

== ENCOUNTER 2024-06-02 11:07 | Outpatient (RCR) | payer BC, SELFPAY | END 2024-06-02 23:59 | disposition home or self-care (01) | LOC: RPT 11:07 | PROVIDERS: ATTENDING PHYSICIAN Nurse Practitioner Adult Health | DX: R53.81 Other malaise (principal); M62.81 Muscle weakness (generalized); Z73.6 Limitation of activities due to disability | CPT/HCPCS: 97110; 97112 ==

== ENCOUNTER 2024-06-28 13:06 | Outpatient (RCR) | payer BC, SELFPAY | END 2024-06-28 23:59 | disposition home or self-care (01) | LOC: RPT 13:06 | PROVIDERS: ATTENDING PHYSICIAN Nurse Practitioner Adult Health | DX: R53.81 Other malaise (principal); M62.81 Muscle weakness (generalized); Z73.6 Limitation of activities due to disability | CPT/HCPCS: 97110; 97112 ==

== ENCOUNTER 2024-07-07 14:09 | Outpatient (RCR) | payer BC, SELFPAY | END 2024-07-07 23:59 | disposition home or self-care (01) | LOC: RPT 14:09 | PROVIDERS: ATTENDING PHYSICIAN Nurse Practitioner Adult Health | DX: R53.81 Other malaise (principal); M62.81 Muscle weakness (generalized); Z73.6 Limitation of activities due to disability; R26.2 Difficulty in walking, not elsewhere classified | CPT/HCPCS: 97110; 97112 ==

== ENCOUNTER 2024-08-15 06:25 | Day surgery (SDC) | payer BC, SELFPAY | END 2024-08-15 14:11 | disposition home or self-care (01) | LOC: GI 06:25 | PROVIDERS: ATTENDING PHYSICIAN Student in an Organized Health Care Education/Training Program | DX: Z12.11 Encounter for screening for malignant neoplasm of colon (principal); D12.0 Benign neoplasm of cecum; D12.3 Benign neoplasm of transverse colon; D12.4 Benign neoplasm of descending colon; K57.30 Diverticulosis of large intestine without perforation or abscess without bleeding; D12.8 Benign neoplasm of rectum; Z83.719 Family history of colon polyps, unspecified | CPT/HCPCS: 45385; 45380; 88305 ==

== ENCOUNTER → 2024-11-15 09:30 | Outpatient (REF) | payer BC, SELFPAY | LOC: HWRAD 09:30 | PROVIDERS: ATTENDING PHYSICIAN Student in an Organized Health Care Education/Training Program; FAMILY PHYSICIAN Nurse Practitioner Adult Health | DX: K70.31 Alcoholic cirrhosis of liver with ascites (principal) | CPT/HCPCS: 76700 ==

== ENCOUNTER 2025-02-13 06:26 | Day surgery (SDC) | payer BC, OTHER, SELFPAY | END 2025-02-13 15:30 | disposition home or self-care (01) | LOC: GI 06:26 | PROVIDERS: ATTENDING PHYSICIAN Student in an Organized Health Care Education/Training Program | DX: Z12.11 Encounter for screening for malignant neoplasm of colon (principal); K52.9 Noninfective gastroenteritis and colitis, unspecified; D12.2 Benign neoplasm of ascending colon; D12.3 Benign neoplasm of transverse colon; K63.89 Other specified diseases of intestine; K62.1 Rectal polyp; K22.89 Other specified disease of esophagus; K31.4 Gastric diverticulum; K76.6 Portal hypertension; K31.89 Other diseases of stomach and duodenum; Z86.0101 Personal history of adenomatous and serrated colon polyps; Z98.890 Other specified postprocedural states | CPT/HCPCS: 45385; 45380; 43239; 88305; 88342 ==